=== PATIENT | male | born 1960 | race Caucasian/White ===

== ENCOUNTER 2016-09-02 20:57 | Inpatient (IN) | payer BC, OTHER ==
[2016-09-02] MEDS ORDERED: LORazepam INJ* 2 MG/ML 1 ML VIAL IV PUSH ONE ×2 (21:53→22:37)
[2016-09-02] MEDS ORDERED: HYDROcodone/ACETAMIN 5-325 MG* 1 TAB PO ONE (21:53)
--- NOTE | 2016-09-02 22:10 | RAD ---
INDICATION: Anisocoria in a patient with a history of drug and alcohol abuse. COMPARISON: None. TECHNIQUE: Contiguous axial sections of the brain were obtained from the skull base to the vertex without contrast. FINDINGS: The ventricles, cisterns and sulci are within normal limits. The he-white matter differentiation is adequately maintained and there is no sulcal effacement. No significant focal abnormality or mass effect is present. There is no evidence for intracranial hemorrhage. No significant focal osseous abnormality is present. There is hyperattenuating material filling the left frontal sinus. Remaining paranasal sinuses and mastoid air cells are clear. The hyperattenuating material filling the left frontal sinus does not appear to cause any cortical destruction or expansile change. IMPRESSION: 1. Hyperattenuating material filling the left frontal sinus does not appear to cause any bony destruction or expansile change. There is no radiology is favored such as fibrous dysplasia or the sequela of a remote infectious process. 2. No acute intracranial abnormality.
[2016-09-02] MEDS ORDERED: Thiamine IV* 100 MG, Folic Acid IV* 1 MG, Multiple Vitamin IV ADULT* 10 ML in NS 0.9% 1... IV ONE (22:27)
[2016-09-03 00:30] LABS: Hematocrit 44 % (42-52); Hemoglobin 14.6 g/dl (14.0-18.0); Mean Corpuscular HGB Conc 33 g/dl (31-36); Mean Corpuscular Hemoglobin 30 pg (27-31); Mean Corpuscular Volume 91 fL (80-94); Mean Platelet Volume 8 um3 (7.4-10.4); Red Blood Count 4.91 10^6/ul (4.0-5.4); Red Cell Distribution Width 15 % (10.5-15)
[2016-09-03 00:37] LABS: ALT 82 U/L (7-52); AST 93 U/L (13-39); Albumin 4.1 g/dL (3.2-5.2); Alkaline Phosphatase 128 U/L (34-104); Anion Gap 11 mmol/L (2-11); BUN/Creatinine Ratio 8.6 (8-20); Blood Urea Nitrogen 7 mg/dL (6-24); CO2 Carbon Dioxide 24 mmol/L (22-32); Chloride 102 mmol/L (101-111); EGFR African American 128.2 (>60); EGFR Non-African American 99.7 (>60); Globulin 3.3 g/dL (2-4); Glucose 176 mg/dL (70-100); Potassium 3.4 mmol/L (3.5-5.0); Sodium 137 mmol/L (133-145); Total Protein 7.4 g/dL (6.4-8.9)
[2016-09-03 00:50] LABS: Acetaminophen < 15 mcg/mL; Alcohol 69 mg/dL (<10); Salicylate < 2.50 mg/dL (<30)
[2016-09-03 00:59] LABS: TSH (Thyroid Stimulating Horm) 1.68 mcIU/mL (0.34-5.60)
[2016-09-03] MEDS ORDERED: Ondansetron INJ* 2 MG/ML VIAL IV PRN (01:21)
[2016-09-03] MEDS ORDERED: Melatonin (NF) 3 MG TAB PO PRN (01:21)
[2016-09-03] MEDS ORDERED: Albuterol 2.5 MG/3 ML NEB.SOL* (0.083%) INH PRN (01:21)
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
[2016-09-03 01:47] LABS: Urine Bilirubin Negative (Negative); Urine Glucose 1+(50 mg/dL) (Negative); Urine Nitrite Negative (Negative)
[2016-09-03 02:09] LABS: Benzodiazepine Urine Screen Presumptive Positive (None Detect)
[2016-09-03] MEDS: Ketorolac INJ* 15 MG/ML 1 ML VIAL IV PUSH PRN ×3 (02:43→17:59)
[2016-09-03] MEDS: Potassium Chlor TAB* 20 MEQ TAB.ER PO SCH ×2 (04:38→09:35)
[2016-09-03] MEDS: LORazepam INJ* 2 MG/ML 1 ML VIAL IV SCH ×4 (04:39→21:05)
[2016-09-03] MEDS: LORazepam TAB(*) 1 MG PO SCH ×3 (04:40→17:58)
[2016-09-03] MEDS: NS 0.9% 1000 ML* 1,000 ML IV SCH ×2 (04:47→13:32)
[2016-09-03] MEDS: Omeprazole CAP* 20 MG PO SCH (07:12)
[2016-09-03] MEDS: Thiamine TAB* 100 MG TAB PO SCH (09:34)
[2016-09-03] MEDS: Multivitamins/Minerals TAB PO SCH (09:34)
[2016-09-03] MEDS: Folic Acid TAB* 1 MG PO SCH (09:35)
[2016-09-03] MEDS: Docusate CAP* 100 MG PO SCH ×2 (09:35→21:06)
--- NOTE | 2016-09-03 10:45 | PN ---
Subjective Date of Service: 09/03/16 Interval History: Patient seen and examined at bedside. Pt states that he is very anxious and doesn't feel well this morning. Denies fever, chills, shortness of breath, chest discomfort, V/D. Pt also reports mild tremors and nausea. Tele: Sinus Rhythm, rate 60-80's, occasional tachycardia with rate 90-100's. Family History: Unchanged from Admission Social History: Unchanged from Admission Past Medical History: Unchanged from Admission Objective Active Medications: Acetaminophen (Tylenol Tab*) 650 mg PO Q6H PRN Reason: FEVER/PAIN Albuterol (Ventolin 2.5 Mg/3 Ml Neb.Reta*) 2.5 mg INH Q2H PRN Reason: SOB/ WHEEZING Docusate Sodium (Colace Cap*) 200 mg PO BID CORINE Folic Acid (Folvite Tab*) 1 mg PO DAILY [facility] Sodium Chloride (Ns 0.9% 1000 Ml*) 1,000 mls @ 125 mls/hr IV PER RATE CORINE Ketorolac Tromethamine (Toradol Inj*) 15 mg IV PUSH Q6H PRN Reason: PAIN Lorazepam (Ativan Inj*) 0 mg IV .PER WAM SCORE CORINE Reason: Protocol Lorazepam (Ativan Tab(*)) 2 mg PO Q8H [facility] Stop: 09/05/16 21:59 Melatonin (Melatonin (Nf)) 3 mg PO BEDTIME PRN; Protocol Reason: Sleep Multivitamins/Minerals (Theragran/Minerals Tab*) 1 tab PO DAILY [facility] Omeprazole (Prilosec Cap*) 20 mg PO DAILY@0600 [facility] Ondansetron HCl (Zofran Inj*) 4 mg IV Q6H PRN Reason: NAUSEA Thiamine HCl (Vitamin B-1 Tab*) 100 mg PO DAILY [facility] Vital Signs 09/03/16 09/03/16 09/03/16 01:30 02:00 02:04 Temperature 98.6 F Pulse Rate 106 Respiratory 18 Rate Blood Pressure 170/103 181/117 189/123 (mmHg) O2 Sat by Pulse 97 Oximetry 09/03/16 09/03/16 09/03/16 02:30 02:49 02:55 Temperature 98.4 F Pulse Rate Respiratory Rate Blood Pressure 163/102 157/102 (mmHg) O2 Sat by Pulse Oximetry 09/03/16 09/03/16 09/03/16 03:00 03:22 04:39 Temperature Pulse Rate 93 Respiratory 18 18 Rate Blood Pressure 154/120 (mmHg) O2 Sat by Pulse 92 Oximetry 09/03/16 09/03/16 09/03/16 05:00 05:06 06:01 Temperature 97.9 F 98.1 F Pulse Rate 103 103 Respiratory 16 20 16 Rate Blood Pressure 152/94 158/101 (mmHg) O2 Sat by Pulse 96 94 Oximetry 09/03/16 09/03/16 09/03/16 07:13 08:04 08:13 Temperature 98.1 F Pulse Rate 93 Respiratory 16 20 18 Rate Blood Pressure 172/109 (mmHg) O2 Sat by Pulse 96 Oximetry 09/03/16 09/03/16 09:23 09:34 Temperature Pulse Rate 82 Respiratory 18 Rate Blood Pressure 169/97 (mmHg) O2 Sat by Pulse 98 Oximetry Oxygen Devices in Use Now: None Appearance: NAD, laying in bed Eyes: No Scleral Icterus Ears/Nose/Mouth/Throat: Mucous Membranes Moist Respiratory: Symmetrical Chest Expansion and Respiratory Effort, Clear to Auscultation Cardiovascular: NL Sounds; No Murmurs; No JVD, RRR Abdominal: NL Sounds; No Tenderness; No Distention Extremities: No Edema Skin: No Rash or Ulcers Neurological: Alert and Oriented x 3, NL Muscle Strength and Tone Lines/Tubes/Other Access: Clean, Dry and Intact Peripheral IV - site benign Nutrition: Taking PO's Result Diagrams: 09/03/16 00:16 09/03/16 00:16 Assess/Plan/Problems-Billing Assessment: Mr. Kilgore is a 55 yo male with PMH significant for alcohol abuse and polysubstance abuse who presented to the emergency room with suicidality and was found to be in alcohol withdrawal. - Patient Problems (1) Alcohol withdrawal Code(s): F10.239 - ALCOHOL DEPENDENCE WITH WITHDRAWAL, UNSPECIFIED SNOMED Code (s): 372715848 Comment: - Hx seizures with withdrawal in the past - WAM score 4-8 - Continue WAM protocol and Ativan taper - Social work consult pending (2) Electrolyte abnormality Code(s): E87.8 - OTH DISORDERS OF ELECTROLYTE AND FLUID BALANCE, NEC SNOMED Code(s): 256462843 Comment: - Hypokalemia - Received replacement, will recheck labs in the morning - Hyperglycemia - HgA1C pending (3) Transaminitis Code(s): R74.0 - NONSPEC ELEV OF LEVELS OF TRANSAMNS & LACTIC ACID DEHYDRGNSE SNOMED Code(s): 485539466 Comment: - Suspect likely secondary to alcohol - Will check for Hep B/C, labs pending (4) Substance induced mood disorder Code(s): F19.94 - OTH PSYCHOACTIVE SUBSTANCE USE, UNSP W MOOD DISORDER SNOMED Code(s): 948133986 Comment: - Psychiatry consult pending (5) HTN (hypertension) Code(s): I10 - ESSENTIAL (PRIMARY) HYPERTENSION SNOMED Code(s): 42135425 Comment: - Hypertensive - Will continue to monitor BP and consider starting antihypertensives if SBP continues to be elevated (6) DVT prophylaxis Code(s): WJY3304 - SNOMED Code(s): 062317565 Comment: - SQ heparin (7) Full code status Code(s): Z78.9 - OTHER SPECIFIED HEALTH STATUS SNOMED Code(s): 788828349 Status and Disposition: OBV. Psych consult pending.
[2016-09-03] MEDS: Heparin VIAL(*) 5000 UNITS/ML VIAL (FIVE THOUSAND) SUBCUT SCH ×2 (13:33→21:05)
[2016-09-03] MEDS: Acetaminophen TAB* 325 MG PO PRN (16:58)
[2016-09-03] MEDS ORDERED: Ibuprofen TAB* 600 MG PO ONE (20:15)
--- NOTE | 2016-09-03 21:15 | ED ---
Chalo Cuenca Billy, scribed for Ventura Morataya MD on 09/02/16 at 2150 . Psychiatric Complaint - HPI Summary HPI Summary: Patient is a 55 year-old male coming to [facility] for [facility]. He states that he normally abuses fentanyl, ativan, cocaine, heroine, and EtOH, but he has not been able to use any of these today. He is tremulous and diaphoretic in the ED, but he denies chest pain or SOB. Positive SI. He also reports that he fractured his left arm 6 weeks ago. - History Of Current Complaint Chief Complaint: EDMentalHealth Time Seen by Provider: 09/02/16 21:23 Hx Obtained From: Patient Onset/Duration: Gradual Onset, Lasting Hours, Still Present Timing: Constant Severity Initially: Moderate Severity Currently: Moderate Character: Depressed Aggravating Factor(s): Alcohol Use, Drug Use Alleviating Factor(s): Nothing Related History: Positive For: Prior Psychiatric Issues Has Suicidal: Reports: Thoughts - Allergies/Home Medications Allergies/Adverse Reactions: Allergies Allergy/AdvReac Type Severity Reaction Status Date / Time No Known Allergies Allergy Verified 09/02/16 22:05 Home Medications: Home Medications NK [No Home Medications Reported] 09/02/16 [History Confirmed 09/02/16] PMH/Surg Hx/FS Hx/Imm Hx Cardiovascular History: Reports: Hx Hypertension Psychiatric History: Reports: Hx Depression, Hx Substance Abuse Denies: Hx Eating Disorder, Hx of Violent Episodes Against Others - Surgical History Surgery Procedure, Year, and Place: neck muscle surgeries, right shoulder 1995 - Immunization History Date of Tetanus Vaccine: unknown Infectious Disease History: Unable to Obtain/Confirm Infectious Disease History: Denies: Traveled Outside the [place] in Last 30 Days - Family History Known Family History: Positive: Unknown - Patient is adopted. - Social History Alcohol Use: Daily Alcohol Amount: pt intoxicated, states he's an alcoholic Substance Use Type: Reports: Heroin Smoking Status (MU): Heavy Every Day Tobacco Smoker Type: Cigarettes, Smokeless Tobacco Review of Systems Positive: Skin Diaphoresis, Other - tremulous Negative: Erythema Negative: Sore Throat Negative: Chest Pain Negative: Shortness Of Breath, Cough Negative: Vomiting, Nausea Positive: Arthralgia. Negative: Myalgia, Edema Negative: Rash All Other Systems Reviewed And Are Negative: Yes Physical Exam - Summary Physical Exam Summary: Constitutional: Well-developed, Well-nourished, Alert. (-) Distressed Skin: Warm, Diaphoretic. There is adhesive on his left arm likely from a cast. HENT: Normocephalic; Atraumatic. Dry oral mucosa. Eyes: Conjunctiva normal Neck: Musculoskeletal ROM normal neck. (-) JVD, (-) Stridor, (-) Tracheal deviation Cardio: Rhythm regular, rate tachycardia, Heart sounds normal; Intact distal pulses; The pedal pulses are 2+ and symmetric. Radial pulses are 2+ and symmetric. (-) Murmur Pulmonary/Chest wall: Effort normal. (-) Respiratory distress, (-) Wheezes, (-) Rales Abd: Soft, (-) Tenderness, (-) Distension, (-) Guarding, (-) Rebound Musculoskeletal: (-) Edema Lymph: (-) Cervical adenopathy Neuro: Alert, Oriented x3. Tremulous. Psych: Mood and affect Normal Triage Information Reviewed: Yes Vital Signs On Initial Exam: Initial Vitals Temp Pulse Resp BP Pulse Ox 98.2 F 117 14 197/128 97 09/02/16 20:58 09/02/16 20:58 09/02/16 20:58 09/02/16 20:58 09/02/16 20:58 Vital Signs Reviewed: Yes Diagnostics - Vital Signs Vital Signs Temp Pulse Resp BP Pulse Ox 09/02/16 21:10 99.1 F 115 16 197/128 99 09/02/16 20:58 98.2 F 117 14 197/128 97 - Laboratory Lab Results: Lab Results 09/02/16 09/02/16 09/03/16 Range/Units 01:55 01:55 00:16 WBC 7.0 (3.5-10.8) 10^3/ul RBC 4.91 (4.0-5.4) 10^6/ul Hgb 14.6 (14.0-18.0) g/dl Hct 44 (42-52) % MCV 91 (80-94) fL MCH 30 (27-31) pg MCHC 33 (31-36) g/dl RDW 15 (10.5-15) % Plt Count 191 (150-450) 10^3/ul MPV 8 (7.4-10.4) um3 Neut % (Auto) 64.6 (38-83) % Lymph % (Auto) 26.5 (25-47) % [place] % (Auto) 4.2 (1-9) % Eos % (Auto) 3.9 (0-6) % Baso % (Auto) 0.8 (0-2) % Absolute Neuts (auto) 4.5 (1.5-7.7) 10^3/ul Absolute Lymphs (auto) 1.9 (1.0-4.8) 10^3/ul Absolute Monos (auto) 0.3 (0-0.8) 10^3/ul Absolute Eos (auto) 0.3 (0-0.6) 10^3/ul Absolute Basos (auto) 0.1 (0-0.2) 10^3/ul Absolute Nucleated RBC 0 10^3/ul Nucleated RBC % 0 Sodium (133-145) mmol/L Potassium (3.5-5.0) mmol/L Chloride (101-111) mmol/L Carbon Dioxide (22-32) mmol/L Anion Gap (2-11) mmol/L BUN (6-24) mg/dL Creatinine (0.67-1.17) mg/dL Est GFR ( Amer) (>60) Est GFR (Non-Af Amer) (>60) BUN/Creatinine Ratio (8-20) Glucose (70-100) mg/dL Hemoglobin A1c (Less than 6.0) % Calcium (8.6-10.3) mg/dL Total Bilirubin (0.2-1.0) mg/dL AST (13-39) U/L ALT (7-52) U/L Alkaline Phosphatase (34-104) U/L Total Protein (6.4-8.9) g/dL Albumin (3.2-5.2) g/dL Globulin (2-4) g/dL Albumin/Globulin Ratio (1-3) TSH (0.34-5.60) mcIU/mL Urine Color Yellow Urine Appearance Clear Urine pH 6.0 (5-9) Ur Specific [place] 1.016 (1.010-1.030) Urine Protein Negative (Negative) Urine Ketones Negative (Negative) Urine Blood Negative (Negative) Urine Nitrate Negative (Negative) Urine Bilirubin Negative (Negative) Urine Urobilinogen Negative (Negative) Ur Leukocyte Esterase Negative (Negative) Urine Glucose 1+(50 mg/dl) H (Negative) Salicylates (<30) mg/dL Urine Opiates Screen Presumptive positive H (None Detect) Acetaminophen mcg/mL Ur Barbiturates Screen None detected (None Detect) Ur Phencyclidine Scrn None detected (None Detect) Ur Amphetamines Screen None detected (None Detect) U Benzodiazepines Scrn Presumptive positive H (None Detect) Urine Cocaine Screen None detected (None Detect) U Cannabinoids Screen None detected (None Detect) Serum Alcohol (<10) mg/dL Hep B Core IgM Ab (Nonreactive) Hepatitis C Antibody (Nonreactive) 09/03/16 09/03/16 09/03/16 Range/Units 00:16 00:16 01:55 WBC (3.5-10.8) 10^3/ul RBC (4.0-5.4) 10^6/ul Hgb (14.0-18.0) g/dl Hct (42-52) % MCV (80-94) fL MCH (27-31) pg MCHC (31-36) g/dl RDW (10.5-15) % Plt Count (150-450) 10^3/ul MPV (7.4-10.4) um3 Neut % (Auto) (38-83) % Lymph % (Auto) (25-47) % [place] % (Auto) (1-9) % Eos % (Auto) (0-6) % Baso % (Auto) (0-2) % Absolute Neuts (auto) (1.5-7.7) 10^3/ul Absolute Lymphs (auto) (1.0-4.8) 10^3/ul Absolute Monos (auto) (0-0.8) 10^3/ul Absolute Eos (auto) (0-0.6) 10^3/ul Absolute Basos (auto) (0-0.2) 10^3/ul Absolute Nucleated RBC 10^3/ul Nucleated RBC % Sodium 137 (133-145) mmol/L Potassium 3.4 L (3.5-5.0) mmol/L Chloride 102 (101-111) mmol/L Carbon Dioxide 24 (22-32) mmol/L Anion Gap 11 (2-11) mmol/L BUN 7 (6-24) mg/dL Creatinine 0.81 (0.67-1.17) mg/dL Est GFR ( Amer) 128.2 (>60) Est GFR (Non-Af Amer) 99.7 (>60) BUN/Creatinine Ratio 8.6 (8-20) Glucose 176 H (70-100) mg/dL Hemoglobin A1c 5.8 (Less than 6.0) % Calcium 9.0 (8.6-10.3) mg/dL Total Bilirubin 0.50 (0.2-1.0) mg/dL AST 93 H (13-39) U/L ALT 82 H (7-52) U/L Alkaline Phosphatase 128 H (34-104) U/L Total Protein 7.4 (6.4-8.9) g/dL Albumin 4.1 (3.2-5.2) g/dL Globulin 3.3 (2-4) g/dL Albumin/Globulin Ratio 1.2 (1-3) TSH 1.68 (0.34-5.60) mcIU/mL Urine Color Urine Appearance Urine pH (5-9) Ur Specific [place] (1.010-1.030) Urine Protein (Negative) Urine Ketones (Negative) Urine Blood (Negative) Urine Nitrate (Negative) Urine Bilirubin (Negative) Urine Urobilinogen (Negative) Ur Leukocyte Esterase (Negative) Urine Glucose (Negative) Salicylates < 2.50 (<30) mg/dL Urine Opiates Screen (None Detect) Acetaminophen < 15 mcg/mL Ur Barbiturates Screen (None Detect) Ur Phencyclidine Scrn (None Detect) Ur Amphetamines Screen (None Detect) U Benzodiazepines Scrn (None Detect) Urine Cocaine Screen (None Detect) U Cannabinoids Screen (None Detect) Serum Alcohol 69 H (<10) mg/dL Hep B Core IgM Ab Nonreactive (Nonreactive) Hepatitis C Antibody Nonreactive (Nonreactive) Result Diagrams: 09/03/16 00:16 09/03/16 00:16 Lab Statement: Any lab studies that have been ordered have been reviewed, and results considered in the medical decision making process. - CT Brain CT Interpretation Completed By: Radiologist - 1. Hyperattenuating material filling the left frontal sinus does not appear to cause any bony destruction or expansile change. There is no radiology is favored such as fibrous dysplasia or the sequela of a remote infectious process. 2. No acute intracranial abnormality. - EKG 2214 EKG Interpretation: sinus tachycardia 101 bpm, no STEMI Course/Dx - Course Assessment/Plan: 55 y/o male to the ED for evaluation of SI and withdrawal symptoms. CT of the brain reviewed as read by the radiologist. EKG shows sinus tachycadria without ST elevations. In the ED, patient was given [place], Ativan, and a banana bag. Patient care discussed with Dr. Campbell, who accepted the patient for admission. - Differential Dx/Clinical Impression Provider Diagnosis: Alcohol withdrawal, Substance induced mood disorder - Physician Notifications Discussed Care Of Patient With: Dr. Campbell (hospitalist) @ 0100: accepts admission. Discharge - Discharge Plan Condition: Stable Disposition: ADMITTED TO [facility] documentation as recorded by the Chalo razo Billy accurately reflects the service I personally performed and the decisions made by me, Ventura Morataya MD.
[2016-09-03] MEDS ORDERED: CMCS - Melatonin (NF) 3 MG TAB PO PRN (23:10)
[2016-09-04] MEDS: NS 0.9% 1000 ML* 1,000 ML IV SCH ×2 (00:06→07:53)
[2016-09-04] MEDS: LORazepam INJ* 2 MG/ML 1 ML VIAL IV SCH ×8 (00:46→22:49)
[2016-09-04] MEDS: Ketorolac INJ* 15 MG/ML 1 ML VIAL IV PUSH PRN ×2 (00:46→08:29)
[2016-09-04 05:33] LABS: BUN/Creatinine Ratio 11.3 (8-20); Calcium 8.8 mg/dL (8.6-10.3); EGFR African American 149.2 (>60); EGFR Non-African American 116.1 (>60); Potassium 3.7 mmol/L (3.5-5.0)
[2016-09-04] MEDS: Heparin VIAL(*) 5000 UNITS/ML VIAL (FIVE THOUSAND) SUBCUT SCH ×3 (05:47→22:48)
[2016-09-04] MEDS: LORazepam TAB(*) 1 MG PO SCH ×2 (05:47→17:51)
[2016-09-04] MEDS: Omeprazole CAP* 20 MG PO SCH (05:48)
[2016-09-04] MEDS: Thiamine TAB* 100 MG TAB PO SCH (07:57)
[2016-09-04] MEDS: Multivitamins/Minerals TAB PO SCH (07:57)
[2016-09-04] MEDS: Docusate CAP* 100 MG PO SCH ×2 (07:57→22:34)
[2016-09-04] MEDS: Folic Acid TAB* 1 MG PO SCH (07:58)
--- NOTE | 2016-09-04 10:17 | PN ---
Subjective Date of Service: 09/04/16 Interval History: Patient seen and examined at bedside. Pt reports a left frontal headache, he feels like this is his typical headache when he hasn't had caffeine. Denies fever, chills, shortness of breath, chest discomfort, N/V/D. Pt states that he feels more anxious since talking to Psychiatry this morning. Pt encouraged to ambulate in the halls and get out of the room. Tele: Sinus rhythm, rate 60-90's. Family History: Unchanged from Admission Social History: Unchanged from Admission Past Medical History: Unchanged from Admission Objective Active Medications: Acetaminophen (Tylenol Tab*) 650 mg PO Q6H PRN Reason: FEVER/PAIN Albuterol (Ventolin 2.5 Mg/3 Ml Neb.Reta*) 2.5 mg INH Q2H PRN Reason: SOB/ WHEEZING Docusate Sodium (Colace Cap*) 200 mg PO BID CORINE Folic Acid (Folvite Tab*) 1 mg PO DAILY [facility] Heparin Sodium (Porcine) (Heparin Vial(*)) 5,000 units SUBCUT Q8HR [facility] Sodium Chloride (Ns 0.9% 1000 Ml*) 1,000 mls @ 125 mls/hr IV PER RATE [facility] Ketorolac Tromethamine (Toradol Inj*) 15 mg IV PUSH Q6H PRN Reason: PAIN Lorazepam (Ativan Inj*) 0 mg IV .PER WAM SCORE [facility] Reason: Protocol Lorazepam (Ativan Tab(*)) 2 mg PO Q12H CORINE TAPER Stop: 09/05/16 21:59 Melatonin (Melatonin (Nf)) 3 mg PO BEDTIME PRN; Protocol Reason: Sleep Multivitamins/Minerals (Theragran/Minerals Tab*) 1 tab PO DAILY [facility] Omeprazole (Prilosec Cap*) 20 mg PO DAILY@0600 [facility] Ondansetron HCl (Zofran Inj*) 4 mg IV Q6H PRN Reason: NAUSEA Thiamine HCl (Vitamin B-1 Tab*) 100 mg PO DAILY [facility] Vital Signs 09/03/16 09/03/16 09/03/16 19:58 20:00 20:04 Temperature 97.5 F Pulse Rate 84 Respiratory 16 16 20 Rate Blood Pressure 195/117 (mmHg) O2 Sat by Pulse 97 Oximetry 09/03/16 09/03/16 09/03/16 21:05 21:53 22:05 Temperature 97.5 F Pulse Rate 74 Respiratory 16 20 16 Rate Blood Pressure 182/111 (mmHg) O2 Sat by Pulse 99 Oximetry 09/03/16 09/04/16 09/04/16 22:54 00:31 00:46 Temperature 98.2 F Pulse Rate 79 Respiratory 16 20 16 Rate Blood Pressure 173/110 (mmHg) O2 Sat by Pulse 96 Oximetry 09/04/16 09/04/16 09/04/16 01:46 02:18 04:23 Temperature 97.6 F 97.7 F Pulse Rate 73 76 Respiratory 16 20 20 Rate Blood Pressure 166/99 186/109 (mmHg) O2 Sat by Pulse 94 97 Oximetry 09/04/16 09/04/16 09/04/16 04:38 05:47 05:48 Temperature 97.6 F Pulse Rate 62 Respiratory 16 16 20 Rate Blood Pressure 162/93 (mmHg) O2 Sat by Pulse 97 Oximetry 09/04/16 09/04/16 09/04/16 07:34 07:47 08:00 Temperature 97.3 F Pulse Rate 65 Respiratory 20 20 20 Rate Blood Pressure 169/107 (mmHg) O2 Sat by Pulse 97 Oximetry 09/04/16 08:53 Temperature 97.8 F Pulse Rate 68 Respiratory 16 Rate Blood Pressure 152/101 (mmHg) O2 Sat by Pulse 98 Oximetry Oxygen Devices in Use Now: None Appearance: NAD, sitting up on the side of the bed Eyes: No Scleral Icterus Ears/Nose/Mouth/Throat: Mucous Membranes Moist Respiratory: Symmetrical Chest Expansion and Respiratory Effort, Clear to Auscultation Cardiovascular: NL Sounds; No Murmurs; No JVD, RRR Abdominal: NL Sounds; No Tenderness; No Distention Extremities: No Edema Neurological: Alert and Oriented x 3, NL Muscle Strength and Tone Lines/Tubes/Other Access: Clean, Dry and Intact Peripheral IV - site benign Nutrition: Taking PO's Result Diagrams: 09/03/16 00:16 09/04/16 04:42 Additional Lab and Data: Assess/Plan/Problems-Billing Assessment: Mr. Kilgore is a 55 yo male with PMH significant for alcohol abuse and polysubstance abuse who presented to the emergency room with suicidality and was found to be in alcohol withdrawal. - Patient Problems (1) Alcohol withdrawal Code(s): F10.239 - ALCOHOL DEPENDENCE WITH WITHDRAWAL, UNSPECIFIED SNOMED Code (s): 278030511 Comment: - Hx seizures with withdrawal in the past - WAM score 3-7 - Continue WAM protocol and Ativan taper - Social work consult (2) Electrolyte abnormality Code(s): E87.8 - OTH DISORDERS OF ELECTROLYTE AND FLUID BALANCE, NEC SNOMED Code(s): 643481573 Comment: - Hypokalemia - resolved - Hyperglycemia - HgA1C 5.8 (3) Transaminitis Code(s): R74.0 - NONSPEC ELEV OF LEVELS OF TRANSAMNS & LACTIC ACID DEHYDRGNSE SNOMED Code(s): 364579399 Comment: - Hep B core IgM ab and Hep C antibody negative - Suspect likely secondary to alcohol (4) Substance induced mood disorder Code(s): F19.94 - OTH PSYCHOACTIVE SUBSTANCE USE, UNSP W MOOD DISORDER SNOMED Code(s): 247193057 Comment: - Psychiatry consult pending (5) HTN (hypertension) Code(s): I10 - ESSENTIAL (PRIMARY) HYPERTENSION SNOMED Code(s): 16541587 Comment: - Hypertensive - Will start Amlodipine today (6) DVT prophylaxis Code(s): JYD8469 - SNOMED Code(s): 258886091 Comment: - SQ heparin (7) Full code status Code(s): Z78.9 - OTHER SPECIFIED HEALTH STATUS SNOMED Code(s): 611189372 Status and Disposition: OBV to Inpatient. Psych consult pending.
[2016-09-04] MEDS ORDERED: amLODIPine TAB* 5 MG PO SCH (11:00)
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
[2016-09-04] MEDS: hydrALAZINE IV* 20 MG/ML VIAL IV SLOW PU PRN (17:52)
[2016-09-04] MEDS ORDERED: amLODIPine TAB* 5 MG PO ONE (19:31)
[2016-09-04] MEDS: Acetaminophen TAB* 325 MG PO PRN (19:39)
[2016-09-05] MEDS: hydrALAZINE IV* 20 MG/ML VIAL IV SLOW PU PRN (00:40)
[2016-09-05] MEDS: LORazepam INJ* 2 MG/ML 1 ML VIAL IV SCH ×4 (00:41→07:02)
[2016-09-05] MEDS: Ketorolac INJ* 15 MG/ML 1 ML VIAL IV PUSH PRN (01:10)
[2016-09-05] MEDS ORDERED: Metoprolol Tartrate IV* 1 MG/ML 5 ML VIAL IV ONE (03:00)
[2016-09-05] MEDS: LORazepam TAB(*) 1 MG PO SCH ×10 (05:47→23:42)
[2016-09-05] MEDS: Omeprazole CAP* 20 MG PO SCH (05:47)
[2016-09-05] MEDS: Heparin VIAL(*) 5000 UNITS/ML VIAL (FIVE THOUSAND) SUBCUT SCH ×3 (05:48→20:51)
[2016-09-05] MEDS ORDERED: Nicotine PATCH 14 MG/24 HR* PATCH TRANSDERM SCH (06:00)
--- NOTE | 2016-09-05 08:11 | PN ---
Subjective Date of Service: 09/05/16 Interval History: Patient seen and examined at bedside. Pt states that he continue to feel anxious and has not been sleeping well since he has been here. Denies fever, chills, shortness of breath, chest discomfort, V/D. Pt reports nausea, decreased appetite, and left wrist pain. Family History: Unchanged from Admission Social History: Unchanged from Admission Past Medical History: Unchanged from Admission Objective Active Medications: Acetaminophen (Tylenol Tab*) 650 mg PO Q6H PRN Reason: FEVER/PAIN Albuterol (Ventolin 2.5 Mg/3 Ml Neb.Reta*) 2.5 mg INH Q2H PRN Reason: SOB/ WHEEZING Amlodipine Besylate (Norvasc Tab*) 10 mg PO DAILY [facility] Docusate Sodium (Colace Cap*) 200 mg PO BID CORINE Folic Acid (Folvite Tab*) 1 mg PO DAILY [facility] Heparin Sodium (Porcine) (Heparin Vial(*)) 5,000 units SUBCUT Q8HR [facility] Hydralazine HCl (Apresoline Iv*) 5 mg IV SLOW PU Q6H PRN Reason: BLOOD PRESSURE Ketorolac Tromethamine (Toradol Inj*) 15 mg IV PUSH Q6H PRN Reason: PAIN Lorazepam (Ativan Tab(*)) 1 mg PO Q12H [facility] Reason: Taper Stop: 09/05/16 21:59 Lorazepam (Ativan Tab(*)) 0 mg PO .PER WAM SCORE [facility] Reason: Protocol Melatonin (Melatonin (Nf)) 3 mg PO BEDTIME PRN; Protocol Reason: Sleep Multivitamins/Minerals (Theragran/Minerals Tab*) 1 tab PO DAILY [facility] Nicotine (Nicotine Patch 14 Mg/24 Hr*) 1 patch TRANSDERM Q24H [facility] Omeprazole (Prilosec Cap*) 20 mg PO DAILY@0600 [facility] Ondansetron HCl (Zofran Inj*) 4 mg IV Q6H PRN Reason: NAUSEA Pharmacy Profile Note (Nicotine Patch Removal Note*) 1 note PATCH OFF 2100 [facility] Thiamine HCl (Vitamin B-1 Tab*) 100 mg PO DAILY [facility] Vital Signs 09/04/16 09/04/16 09/04/16 08:53 10:51 12:38 Temperature 97.8 F 97.3 F 97.4 F Pulse Rate 68 83 88 Respiratory 16 16 16 Rate Blood Pressure 152/101 158/106 181/119 (mmHg) O2 Sat by Pulse 98 98 96 Oximetry 09/04/16 09/04/16 09/04/16 12:42 12:44 13:30 Temperature Pulse Rate 87 87 Respiratory 18 16 18 Rate Blood Pressure 187/119 (mmHg) O2 Sat by Pulse 96 95 Oximetry 09/04/16 09/04/16 09/04/16 14:19 14:30 15:02 Temperature 98.0 F 97.8 F Pulse Rate 94 93 Respiratory 16 20 20 Rate Blood Pressure 185/126 185/129 (mmHg) O2 Sat by Pulse 95 99 Oximetry 09/04/16 09/04/16 09/04/16 15:09 15:29 16:29 Temperature Pulse Rate 93 Respiratory 20 20 18 Rate Blood Pressure 185/129 (mmHg) O2 Sat by Pulse 99 Oximetry 09/04/16 09/04/16 09/04/16 16:34 17:12 17:51 Temperature 98.1 F Pulse Rate 89 Respiratory 18 20 Rate Blood Pressure 208/140 187/125 (mmHg) O2 Sat by Pulse 98 Oximetry 09/04/16 09/04/16 09/04/16 17:53 18:53 19:25 Temperature Pulse Rate 94 Respiratory 20 18 16 Rate Blood Pressure 184/123 (mmHg) O2 Sat by Pulse 99 Oximetry 09/04/16 09/04/16 09/04/16 19:30 19:39 19:40 Temperature 98.3 F Pulse Rate 94 96 Respiratory 16 17 16 Rate Blood Pressure 184/123 182/116 (mmHg) O2 Sat by Pulse 99 Oximetry 09/04/16 09/04/16 09/04/16 20:57 21:00 22:42 Temperature Pulse Rate 88 88 Respiratory 16 16 16 Rate Blood Pressure 175/105 160/109 (mmHg) O2 Sat by Pulse 98 98 Oximetry 09/04/16 09/05/16 09/05/16 22:49 00:27 00:41 Temperature 97.5 F Pulse Rate 105 Respiratory 16 20 16 Rate Blood Pressure 178/118 (mmHg) O2 Sat by Pulse 94 Oximetry 09/05/16 09/05/16 09/05/16 02:48 03:12 04:49 Temperature 97.7 F 98.4 F Pulse Rate 98 88 Respiratory 20 16 20 Rate Blood Pressure 187/119 145/90 (mmHg) O2 Sat by Pulse 97 95 Oximetry 09/05/16 09/05/16 09/05/16 05:08 05:47 06:41 Temperature 98.2 F Pulse Rate 87 Respiratory 16 16 20 Rate Blood Pressure 144/100 (mmHg) O2 Sat by Pulse 98 Oximetry Oxygen Devices in Use Now: None Appearance: NAD, sitting up on the side of the bed Eyes: No Scleral Icterus Respiratory: Symmetrical Chest Expansion and Respiratory Effort, Clear to Auscultation Cardiovascular: NL Sounds; No Murmurs; No JVD, RRR Abdominal: NL Sounds; No Tenderness; No Distention Extremities: No Edema Neurological: Alert and Oriented x 3, NL Muscle Strength and Tone, - - Mild tremors noted in bilateral UE Lines/Tubes/Other Access: Clean, Dry and Intact Peripheral IV - site benign Nutrition: Taking PO's Result Diagrams: 09/03/16 00:16 09/04/16 04:42 Additional Lab and Data: Assess/Plan/Problems-Billing Assessment: Mr. Kilgore is a 55 yo male with PMH significant for alcohol abuse and polysubstance abuse who presented to the emergency room with suicidality and was found to be in alcohol withdrawal. - Patient Problems (1) Alcohol withdrawal Code(s): F10.239 - ALCOHOL DEPENDENCE WITH WITHDRAWAL, UNSPECIFIED SNOMED Code (s): 446429793 Comment: - Hx seizures with withdrawal in the past - Delirium Tremens - WAM score 6-12 - Continue WAM protocol and Ativan taper - Social work consult (2) Electrolyte abnormality Code(s): E87.8 - OTH DISORDERS OF ELECTROLYTE AND FLUID BALANCE, NEC SNOMED Code(s): 000105057 Comment: - Hypokalemia - resolved - Hyperglycemia - HgA1C 5.8 (3) Transaminitis Code(s): R74.0 - NONSPEC ELEV OF LEVELS OF TRANSAMNS & LACTIC ACID DEHYDRGNSE SNOMED Code(s): 988092881 Comment: - Hep B core IgM ab, Hep B core total Ab, and Hep C antibody negative - Suspect likely secondary to alcohol (4) Substance induced mood disorder Code(s): F19.94 - OTH PSYCHOACTIVE SUBSTANCE USE, UNSP W MOOD DISORDER SNOMED Code(s): 190350277 Comment: - Psychiatry consult, input appreciated (5) HTN (hypertension) Code(s): I10 - ESSENTIAL (PRIMARY) HYPERTENSION SNOMED Code(s): 16846368 Comment: - Hypertensive - Increase Amlodipine - Continue Hydralazine PRN (6) DVT prophylaxis Code(s): LFL0580 - SNOMED Code(s): 922165468 Comment: - SQ heparin (7) Full code status Code(s): Z78.9 - OTHER SPECIFIED HEALTH STATUS SNOMED Code(s): 028416875 Status and Disposition: Inpatient. Plan for discharge to [facility] when medically stable.
[2016-09-05] MEDS ORDERED: Thiamine TAB* 100 MG TAB PO SCH (09:00)
[2016-09-05] MEDS: Folic Acid TAB* 1 MG PO SCH (09:10)
[2016-09-05] MEDS: Thiamine TAB* 100 MG TAB PO SCH (09:10)
[2016-09-05] MEDS: amLODIPine TAB* 5 MG PO SCH (09:10)
[2016-09-05] MEDS: Docusate CAP* 100 MG PO SCH ×2 (09:10→20:50)
[2016-09-05] MEDS: Multivitamins/Minerals TAB PO SCH (09:11)
[2016-09-05] MEDS: Nicotine GUM* 2 MG PO PRN (14:23)
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
[2016-09-05] MEDS: Nicotine PATCH 14 MG/24 HR* PATCH TRANSDERM SCH (20:44)
[2016-09-05] MEDS ORDERED: Nicotine Patch Removal NOTE FOLLOW UP SCH (21:00)
[2016-09-05] MEDS ORDERED: Nicotine PATCH 21 MG/24 HR* PATCH TRANSDERM SCH (21:00)
[2016-09-06] MEDS: Nicotine GUM* 2 MG PO PRN ×2 (00:28→09:38)
[2016-09-06] MEDS: LORazepam TAB(*) 1 MG PO SCH ×6 (02:11→20:43)
[2016-09-06] MEDS ORDERED: Ziprasidone IM INJ* 20 MG/ML VIAL IM ONE (02:46)
[2016-09-06] MEDS: Nicotine Patch Removal NOTE PATCH OFF SCH ×2 (03:41→22:18)
[2016-09-06 05:45] LABS: Hematocrit 39 % (42-52); Mean Corpuscular HGB Conc 34 g/dl (31-36); Mean Corpuscular Hemoglobin 30 pg (27-31); Mean Corpuscular Volume 90 fL (80-94); Mean Platelet Volume 9 um3 (7.4-10.4); Red Cell Distribution Width 15 % (10.5-15); White Blood Count 5.7 10^3/ul (3.5-10.8)
[2016-09-06] MEDS: Heparin VIAL(*) 5000 UNITS/ML VIAL (FIVE THOUSAND) SUBCUT SCH ×3 (06:26→20:45)
[2016-09-06] MEDS: Omeprazole CAP* 20 MG PO SCH (06:28)
[2016-09-06] MEDS: Thiamine TAB* 100 MG TAB PO SCH (09:11)
[2016-09-06] MEDS: Folic Acid TAB* 1 MG PO SCH (09:11)
[2016-09-06] MEDS: Docusate CAP* 100 MG PO SCH ×2 (09:12→20:44)
[2016-09-06] MEDS: Multivitamins/Minerals TAB PO SCH (09:12)
[2016-09-06] MEDS: amLODIPine TAB* 5 MG PO SCH (09:12)
--- NOTE | 2016-09-06 17:24 | PN ---
Subjective Date of Service: 09/06/16 Interval History: Patient seen and examined at bedside. Pt states that he continues to be anxious about his current situation and that he may be facing time in long-term. Denies fever, chills, shortness of breath, chest discomfort, V/D. Pt reports mild tremors in his hands and nausea. Pt has been up and ambulating in the halls frequently. Family History: Unchanged from Admission Social History: Unchanged from Admission Past Medical History: Unchanged from Admission Objective Active Medications: Acetaminophen (Tylenol Tab*) 650 mg PO Q6H PRN Reason: FEVER/PAIN Albuterol (Ventolin 2.5 Mg/3 Ml Neb.Reta*) 2.5 mg INH Q2H PRN Reason: SOB/ WHEEZING Amlodipine Besylate (Norvasc Tab*) 10 mg PO DAILY [facility] Docusate Sodium (Colace Cap*) 200 mg PO BID [facility] Folic Acid (Folvite Tab*) 1 mg PO DAILY [facility] Heparin Sodium (Porcine) (Heparin Vial(*)) 5,000 units SUBCUT Q8HR [facility] Hydralazine HCl (Apresoline Iv*) 5 mg IV SLOW PU Q6H PRN Reason: BLOOD PRESSURE Ketorolac Tromethamine (Toradol Inj*) 15 mg IV PUSH Q6H PRN Reason: PAIN Lorazepam (Ativan Tab(*)) 0 mg PO .PER WAM SCORE [facility] Reason: Protocol Melatonin (Melatonin (Nf)) 3 mg PO BEDTIME PRN; Protocol Reason: Sleep Multivitamins/Minerals (Theragran/Minerals Tab*) 1 tab PO DAILY [facility] Nicotine (Nicotine Patch 14 Mg/24 Hr*) 1 patch TRANSDERM 2100 [facility] Nicotine Polacrilex (Nicotine Gum*) 2 mg PO Q2H PRN Reason: CRAVING Omeprazole (Prilosec Cap*) 20 mg PO DAILY@0600 [facility] Ondansetron HCl (Zofran Inj*) 4 mg IV Q6H PRN Reason: NAUSEA Pharmacy Profile Note (Nicotine Patch Removal Note*) 1 note PATCH OFF 2100 [facility] Thiamine HCl (Vitamin B-1 Tab*) 100 mg PO DAILY [facility] Trazodone HCl (Desyrel Tab*) 25 mg PO BEDTIME PRN Reason: SLEEP Vital Signs 09/05/16 09/05/16 09/05/16 17:31 19:00 19:20 Temperature 98.1 F Pulse Rate 100 Respiratory 20 20 20 Rate Blood Pressure 143/87 (mmHg) O2 Sat by Pulse 98 Oximetry 09/05/16 09/05/16 09/05/16 19:26 19:31 20:00 Temperature Pulse Rate Respiratory 20 20 20 Rate Blood Pressure (mmHg) O2 Sat by Pulse Oximetry 09/05/16 09/05/16 09/05/16 21:04 21:26 21:40 Temperature 97.6 F Pulse Rate 99 Respiratory 20 20 17 Rate Blood Pressure 147/92 (mmHg) O2 Sat by Pulse 98 Oximetry 09/05/16 09/05/16 09/05/16 22:59 23:02 23:40 Temperature 97.5 F Pulse Rate 89 Respiratory 20 20 20 Rate Blood Pressure 147/98 (mmHg) O2 Sat by Pulse 100 Oximetry 09/05/16 09/06/16 09/06/16 23:42 01:42 02:00 Temperature 98.1 F Pulse Rate 102 Respiratory 20 20 20 Rate Blood Pressure 154/98 (mmHg) O2 Sat by Pulse 96 Oximetry 09/06/16 09/06/16 09/06/16 02:11 04:11 04:28 Temperature 98.3 F Pulse Rate 97 Respiratory 24 20 20 Rate Blood Pressure 154/97 (mmHg) O2 Sat by Pulse 95 Oximetry 09/06/16 09/06/16 09/06/16 06:15 07:35 08:00 Temperature 97.3 F 97.7 F Pulse Rate 82 74 Respiratory 20 18 15 Rate Blood Pressure 137/69 147/95 (mmHg) O2 Sat by Pulse 99 96 Oximetry 09/06/16 09/06/16 09/06/16 09:48 09:53 11:53 Temperature 97.4 F Pulse Rate 92 Respiratory 20 20 20 Rate Blood Pressure 153/107 (mmHg) O2 Sat by Pulse 98 Oximetry 09/06/16 09/06/16 09/06/16 12:29 12:35 14:35 Temperature Pulse Rate 90 Respiratory 22 20 20 Rate Blood Pressure 142/86 (mmHg) O2 Sat by Pulse Oximetry 09/06/16 09/06/16 09/06/16 14:39 15:00 15:19 Temperature 97.7 F 98.1 F Pulse Rate 87 88 Respiratory 20 20 18 Rate Blood Pressure 135/87 141/95 (mmHg) O2 Sat by Pulse 98 97 Oximetry Oxygen Devices in Use Now: None Appearance: NAD, sitting up on side of bed Ears/Nose/Mouth/Throat: Mucous Membranes Moist Respiratory: Symmetrical Chest Expansion and Respiratory Effort, Clear to Auscultation Cardiovascular: NL Sounds; No Murmurs; No JVD, RRR Abdominal: NL Sounds; No Tenderness; No Distention Extremities: No Edema Skin: No Rash or Ulcers Neurological: Alert and Oriented x 3, NL Muscle Strength and Tone Lines/Tubes/Other Access: Clean, Dry and Intact Peripheral IV - site benign Nutrition: Taking PO's Result Diagrams: 09/06/16 05:37 09/04/16 04:42 Additional Lab and Data: Assess/Plan/Problems-Billing Assessment: Mr. Kilgore is a 55 yo male with PMH significant for alcohol abuse and polysubstance abuse who presented to the emergency room with suicidality and was found to be in alcohol withdrawal. - Patient Problems (1) Alcohol withdrawal Code(s): F10.239 - ALCOHOL DEPENDENCE WITH WITHDRAWAL, UNSPECIFIED SNOMED Code (s): 163893967 Comment: - Hx seizures with withdrawal in the past - Delirium Tremens - WAM score 1-7 - Continue WAM protocol and Ativan taper - Social work consult (2) Electrolyte abnormality Code(s): E87.8 - OTH DISORDERS OF ELECTROLYTE AND FLUID BALANCE, NEC SNOMED Code(s): 468698247 Comment: - Hypokalemia - resolved - Hyperglycemia - HgA1C 5.8 (3) Transaminitis Code(s): R74.0 - NONSPEC ELEV OF LEVELS OF TRANSAMNS & LACTIC ACID DEHYDRGNSE SNOMED Code(s): 406779355 Comment: - Hep B core IgM ab, Hep B core total Ab, and Hep C antibody negative - Suspect likely secondary to alcohol (4) Substance induced mood disorder Code(s): F19.94 - OTH PSYCHOACTIVE SUBSTANCE USE, UNSP W MOOD DISORDER SNOMED Code(s): 266247265 Comment: - Psychiatry consult, input appreciated (5) HTN (hypertension) Code(s): I10 - ESSENTIAL (PRIMARY) HYPERTENSION SNOMED Code(s): 63490242 Comment: - BP improved - Continue Amlodipine - Continue Hydralazine PRN (6) DVT prophylaxis Code(s): GRI3052 - SNOMED Code(s): 782451736 Comment: - SQ heparin (7) Full code status Code(s): Z78.9 - OTHER SPECIFIED HEALTH STATUS SNOMED Code(s): 837725904 Status and Disposition: Inpatient. Medically stable for discharge to B[facility] today.
[2016-09-06] MEDS: Nicotine PATCH 14 MG/24 HR* PATCH TRANSDERM SCH (20:47)
[2016-09-06] MEDS: traZODone TAB* 50 MG TAB PO PRN (23:03)
[2016-09-07] MEDS: Omeprazole CAP* 20 MG PO SCH (06:21)
[2016-09-07] MEDS: Heparin VIAL(*) 5000 UNITS/ML VIAL (FIVE THOUSAND) SUBCUT SCH ×3 (06:22→21:05)
--- NOTE | 2016-09-07 07:08 | DS ---
DISCHARGE SUMMARY: DATE OF ADMISSION: 09/03/16 DATE OF DISCHARGE: 09/06/16 ATTENDING PHYSICIAN: Sadiq Jonas MD* (dictated by Melly Begum NP) PRIMARY CARE PROVIDER: Dr. Reji Díaz. PRIMARY DIAGNOSES: 1. Alcohol withdrawal with delirium tremens. 2. Polysubstance abuse. 3. Hypertension. 4. Mild transaminitis. CONSULTATION WHILE IN THE HOSPITAL: Manolo Ngo MD with Psychiatry. STUDIES WHILE IN THE HOSPITAL: Brain CT on 09/02/16. Radiologist's impression : Hyperattenuating material filling the left frontal sinus does not appear to cause any bony destruction or expansile change. There is no radiology favored such as fibrosis, dysplasia or a sequela of a remote infectious process. No acute intracranial abnormality. CURRENT HOSPITAL MEDICATIONS: 1. Acetaminophen 650 mg oral every 6 hours as needed for fever or pain. 2. Albuterol 2.5 mg inhalation every 2 hours as needed for shortness of breath or wheeze. 3. Amlodipine 10 mg oral daily. 4. Colace 200 mg oral twice daily. 5. Folic acid 1 mg oral daily. 6. Heparin 5000 unit subcutaneous every 8 hours. 7. Hydralazine 5 mg IV push every 6 hours as needed for systolic blood pressure greater than 180 or diastolic blood pressure greater than 110. 8. Toradol 15 mg IV push every 6 hours as needed for pain. 9. Ativan per [facility] protocol. 10. Melatonin 3 mg oral daily at bedtime as needed for sleep. 11. Multivitamin 1 tablet oral daily. 12. Nicotine patch 14 mg transdermal daily. 13. Nicotine gum 2 mg oral every 2 hours as needed for nicotine craving. 14. Omeprazole 20 mg oral daily. 15. Zofran 4 mg IV every 6 hours as needed for nausea. 16. Thiamine 100 mg oral daily. 17. Trazodone 25 mg oral daily at bedtime. HISTORY OF PRESENT ILLNESS/HOSPITAL COURSE: Mr. Leonard is a 55-year-old male with past medical history significant for polysubstance abuse and alcohol withdrawal seizures who was sober approximately 14 months ago until he fractured his left forearm at work approximately 5 weeks ago and was given prescription for hydrocodone. Within a week, the patient had returned to using heroin, cocaine, and binge drinking. The patient was currently on probation for 2 DUIs and had recently failed a drug test. The patient had also missed a drug appointment on 08/27/16 and became distraught over situation. The patient reportedly was sent by train to [facility] for a drug court appearance when he made it as far as [place], [place]. The patient reportedly had lay on train tracks, threatening to kill himself and was hospitalized there prior to signing himself out against medical advice. The patient continued back to [place], [place] where he saw his ex- and after talking with her, she convinced him to come to the emergency room for further evaluation. While in the ER, the patient had a CT of his brain with no significant acute findings. The patient had also become agitated and tremulous prompting request for admission for alcohol withdrawal with delirium tremens. The patient was also noted to have mild transaminitis, hyperglycemia, and hypokalemia. The patient was also noted to be hypertensive. The hospitalist was asked to evaluate the patient for admission. While in the hospital, the patient continued to be hypertensive and tachycardic , and the patient was initiated on amlodipine and he continued to be hypertensive. He was initiated on as needed hydralazine and his amlodipine was increased to 10 mg daily. The patient was placed on an Ativan taper to prevent alcohol withdrawal seizures. The patient was also monitored with WAM assessment. The patient was ranging from 1 to 13 WAM score. The patient is now scoring 1 to 7, although he denies suicidality at this time. The patient is clearly unable to make good decisions for himself. The patient was seen in consultation by Dr. Ngo with Psychiatry who felt that it would be in the patient's best interest to be admitted to Behavioral Services Unit and the patient would be taken when he was medically cleared. The patient had a hemoglobin A1c checked and was 5.8. The patient's hypokalemia resolved during his hospitalization. Again, the patient's mild transaminitis was suspected to be secondary to his alcoholism. The patient had negative hep B core total antibody, hep B core IgM antibody, and hepatitis C antibodies during the stay. The patient has now been medically cleared for discharge to Behavioral Services Unit. Mr. Leonard is stable for discharge to Behavioral Services Unit today. Vital signs are as follows. Temperature 98.4, heart rate 93, respiratory rate 19, O2 sat 97% on room air, and blood pressure 140/101. DISCHARGE PLAN: Mr. Leonard would be discharged to Behavioral Services Unit. Activity is as tolerated. He should be on a low-sodium diet. As far as the patient's hypertension, I recommend continuing him on amlodipine. The patient should follow up with his primary care provider, Dr. Reji Díaz at discharge from Behavioral Services. I will defer management of the patient's substance-induced mood disorder and suicidality to Psychiatry. This is a summarized report of a complex medical history and hospital stay. For further details, please see the entire medical record. TIME SPENT: Time for this discharge was 50 minutes and 25 minutes was spent face- to-face with the patient, discussing discharge plans and instructions. CONDITION ON DISCHARGE: Stable. Reviewed by NATALIA LEDESMA 09/10/161927 CC: Dr. Reji Díaz* [id number]/CPS #: [id number] SHARIF
[2016-09-07] MEDS: Multivitamins/Minerals TAB PO SCH (08:34)
[2016-09-07] MEDS: Docusate CAP* 100 MG PO SCH ×2 (08:34→21:04)
[2016-09-07] MEDS: amLODIPine TAB* 5 MG PO SCH (08:34)
[2016-09-07] MEDS: Thiamine TAB* 100 MG TAB PO SCH (08:34)
[2016-09-07] MEDS: Folic Acid TAB* 1 MG PO SCH (08:34)
[2016-09-07] MEDS: Nicotine GUM* 2 MG PO PRN (08:34)
[2016-09-07] MEDS: Nicotine PATCH 14 MG/24 HR* PATCH TRANSDERM SCH ×2 (08:35→21:06)
[2016-09-07] MEDS: LORazepam TAB(*) 1 MG PO SCH (10:28)
--- NOTE | 2016-09-07 11:55 | PN ---
Subjective Date of Service: 09/07/16 Interval History: Patient seen and examined at bedside. Pt states that he continues to feel anxious. Denies fever, chills, shortness of breath, chest discomfort, N/V/D. Family History: Unchanged from Admission Social History: Unchanged from Admission Past Medical History: Unchanged from Admission Objective Active Medications: Acetaminophen (Tylenol Tab*) 650 mg PO Q6H PRN Reason: FEVER/PAIN Albuterol (Ventolin 2.5 Mg/3 Ml Neb.Reta*) 2.5 mg INH Q2H PRN Reason: SOB/ WHEEZING Amlodipine Besylate (Norvasc Tab*) 10 mg PO DAILY [facility] Docusate Sodium (Colace Cap*) 200 mg PO BID [facility] Folic Acid (Folvite Tab*) 1 mg PO DAILY [facility] Heparin Sodium (Porcine) (Heparin Vial(*)) 5,000 units SUBCUT Q8HR [facility] Hydralazine HCl (Apresoline Iv*) 5 mg IV SLOW PU Q6H PRN Reason: BLOOD PRESSURE Ketorolac Tromethamine (Toradol Inj*) 15 mg IV PUSH Q6H PRN Reason: PAIN Lisinopril (Prinivil Tab*) 10 mg PO DAILY [facility] Lorazepam (Ativan Tab(*)) 0 mg PO .PER WAM SCORE [facility] Reason: Protocol Melatonin (Melatonin (Nf)) 3 mg PO BEDTIME PRN; Protocol Reason: Sleep Multivitamins/Minerals (Theragran/Minerals Tab*) 1 tab PO DAILY [facility] Nicotine (Nicotine Patch 14 Mg/24 Hr*) 1 patch TRANSDERM 2100 [facility] Nicotine Polacrilex (Nicotine Gum*) 2 mg PO Q2H PRN Reason: CRAVING Omeprazole (Prilosec Cap*) 20 mg PO DAILY@0600 [facility] Ondansetron HCl (Zofran Inj*) 4 mg IV Q6H PRN Reason: NAUSEA Pharmacy Profile Note (Nicotine Patch Removal Note*) 1 note PATCH OFF 2100 [facility] Thiamine HCl (Vitamin B-1 Tab*) 100 mg PO DAILY [facility] Trazodone HCl (Desyrel Tab*) 25 mg PO BEDTIME PRN Reason: SLEEP Vital Signs 09/06/16 09/06/16 09/06/16 11:53 12:29 12:35 Temperature Pulse Rate 90 Respiratory 20 22 20 Rate Blood Pressure 142/86 (mmHg) O2 Sat by Pulse Oximetry 0409/06/16 09/06/16 14:35 14:39 15:00 Temperature 97.7 F Pulse Rate 87 Respiratory 20 20 20 Rate Blood Pressure 135/87 (mmHg) O2 Sat by Pulse 98 Oximetry 09/06/16 09/06/16 09/06/16 15:19 17:00 17:14 Temperature 98.1 F 98.4 F Pulse Rate 88 93 Respiratory 18 22 19 Rate Blood Pressure 141/95 140/101 (mmHg) O2 Sat by Pulse 97 97 Oximetry 09/06/16 09/06/16 09/06/16 17:30 18:28 19:30 Temperature 98.0 F Pulse Rate 92 Respiratory 22 18 18 Rate Blood Pressure 135/90 (mmHg) O2 Sat by Pulse 99 Oximetry 09/06/16 09/06/16 09/06/16 20:00 20:01 20:43 Temperature 98.0 F Pulse Rate 87 Respiratory 18 18 20 Rate Blood Pressure 149/94 (mmHg) O2 Sat by Pulse 97 Oximetry 09/06/16 09/06/16 09/07/16 22:00 22:43 00:34 Temperature 97.5 F 97.7 F Pulse Rate 78 81 Respiratory 18 18 18 Rate Blood Pressure 150/95 161/94 (mmHg) O2 Sat by Pulse 98 97 Oximetry 09/07/16 09/07/16 09/07/16 02:18 04:38 06:28 Temperature 97.9 F 97.7 F 97.8 F Pulse Rate 93 89 92 Respiratory 16 16 16 Rate Blood Pressure 152/97 152/107 156/91 (mmHg) O2 Sat by Pulse 96 93 95 Oximetry 09/07/16 09/07/16 09/07/16 08:00 08:04 10:28 Temperature Pulse Rate 78 Respiratory 20 14 20 Rate Blood Pressure (mmHg) O2 Sat by Pulse 97 Oximetry Oxygen Devices in Use Now: None Appearance: NAD, sitting up on the side of the bed Eyes: No Scleral Icterus Ears/Nose/Mouth/Throat: Mucous Membranes Moist Respiratory: Symmetrical Chest Expansion and Respiratory Effort, Clear to Auscultation Cardiovascular: NL Sounds; No Murmurs; No JVD, RRR Abdominal: NL Sounds; No Tenderness; No Distention Extremities: No Edema Skin: No Rash or Ulcers Neurological: Alert and Oriented x 3, NL Muscle Strength and Tone Nutrition: Taking PO's Result Diagrams: 09/06/16 05:37 09/04/16 04:42 Additional Lab and Data: Assess/Plan/Problems-Billing Assessment: Mr. Kilgore is a 55 yo male with PMH significant for alcohol abuse and polysubstance abuse who presented to the emergency room with suicidality and was found to be in alcohol withdrawal. - Patient Problems (1) Alcohol withdrawal Code(s): F10.239 - ALCOHOL DEPENDENCE WITH WITHDRAWAL, UNSPECIFIED SNOMED Code (s): 508846010 Comment: - Hx seizures with withdrawal in the past - Delirium Tremens - WAM score 3-7 - Continue WAM protocol with Ativan - Social work consult (2) Electrolyte abnormality Code(s): E87.8 - OTH DISORDERS OF ELECTROLYTE AND FLUID BALANCE, NEC SNOMED Code(s): 080807369 Comment: - Hypokalemia - resolved - Hyperglycemia - HgA1C 5.8 (3) Transaminitis Code(s): R74.0 - NONSPEC ELEV OF LEVELS OF TRANSAMNS & LACTIC ACID DEHYDRGNSE SNOMED Code(s): 359034037 Comment: - Hep B core IgM ab, Hep B core total Ab, and Hep C antibody negative - Suspect likely secondary to alcohol (4) Substance induced mood disorder Code(s): F19.94 - OTH PSYCHOACTIVE SUBSTANCE USE, UNSP W MOOD DISORDER SNOMED Code(s): 201985154 Comment: - Psychiatry consult, input appreciated (5) HTN (hypertension) Code(s): I10 - ESSENTIAL (PRIMARY) HYPERTENSION SNOMED Code(s): 36191290 Comment: - SBP continues to be 150's - Continue Amlodipine - Start Lisinopril - Continue Hydralazine PRN (6) DVT prophylaxis Code(s): MWJ0386 - SNOMED Code(s): 230285727 Comment: - SQ heparin (7) Full code status Code(s): Z78.9 - OTHER SPECIFIED HEALTH STATUS SNOMED Code(s): 108034367 Status and Disposition: Inpatient. Medically stable for discharge to BSU today or when a bed is available.
[2016-09-07] MEDS: Lisinopril TAB* 10 MG PO SCH (12:36)
[2016-09-07] MEDS: Nicotine Patch Removal NOTE PATCH OFF SCH (21:06)
[2016-09-07] MEDS ORDERED: Zolpidem TAB* 5 MG PO PRN (21:51)
[2016-09-08] MEDS: Omeprazole CAP* 20 MG PO SCH (05:42)
[2016-09-08] MEDS: Heparin VIAL(*) 5000 UNITS/ML VIAL (FIVE THOUSAND) SUBCUT SCH ×3 (05:42→22:33)
[2016-09-08] MEDS: Multivitamins/Minerals TAB PO SCH (07:26)
[2016-09-08] MEDS: amLODIPine TAB* 5 MG PO SCH (07:26)
[2016-09-08] MEDS: Folic Acid TAB* 1 MG PO SCH (07:26)
[2016-09-08] MEDS: Docusate CAP* 100 MG PO SCH (07:26)
[2016-09-08] MEDS: Thiamine TAB* 100 MG TAB PO SCH (07:26)
[2016-09-08] MEDS: Lisinopril TAB* 10 MG PO SCH (07:26)
[2016-09-08] MEDS: Acetaminophen TAB* 325 MG PO PRN (10:28)
--- NOTE | 2016-09-08 11:13 | PN ---
Subjective Date of Service: 09/08/16 Interval History: C/O anxiety, states he takes alprazolam or clonazepam PRN at home for this. Family History: Unchanged from Admission Social History: Unchanged from Admission Past Medical History: Unchanged from Admission Objective Active Medications: Acetaminophen (Tylenol Tab*) 650 mg PO Q6H PRN PRN Reason: FEVER/PAIN Last Admin: 09/08/16 10:28 Dose: 650 mg Albuterol (Ventolin 2.5 Mg/3 Ml Neb.Reta*) 2.5 mg INH Q2H PRN PRN Reason: SOB/WHEEZING Amlodipine Besylate (Norvasc Tab*) 10 mg PO DAILY [facility] Last Admin: 09/08/16 07:26 Dose: 10 mg Atenolol (Tenormin Tab*) 25 mg PO DAILY [facility] Folic Acid (Folvite Tab*) 1 mg PO DAILY [facility] Last Admin: 09/08/16 07:26 Dose: 1 mg Heparin Sodium (Porcine) (Heparin Vial(*)) 5,000 units SUBCUT Q8HR [facility] Last Admin: 09/08/16 05:42 Dose: 5,000 units Lisinopril (Prinivil Tab*) 10 mg PO DAILY [facility] Last Admin: 09/08/16 07:26 Dose: 10 mg Multivitamins/Minerals (Theragran/Minerals Tab*) 1 tab PO DAILY [facility] Last Admin: 09/08/16 07:26 Dose: 1 tab Nicotine (Nicotine Patch 14 Mg/24 Hr*) 1 patch TRANSDERM 2100 [facility] Last Admin: 09/07/16 21:06 Dose: 1 patch Nicotine Polacrilex (Nicotine Gum*) 2 mg PO Q2H PRN PRN Reason: CRAVING Last Admin: 09/07/16 08:34 Dose: 2 mg Omeprazole (Prilosec Cap*) 20 mg PO DAILY@0600 [facility] Last Admin: 09/08/16 05:42 Dose: 20 mg Ondansetron HCl (Zofran Inj*) 4 mg IV Q6H PRN PRN Reason: NAUSEA Last Admin: 09/05/16 09:11 Dose: 4 mg Pharmacy Profile Note (Nicotine Patch Removal Note*) 1 note PATCH OFF 2100 [facility] Last Admin: 09/07/16 21:06 Dose: 1 note Thiamine HCl (Vitamin B-1 Tab*) 100 mg PO DAILY [facility] Last Admin: 09/08/16 07:26 Dose: 100 mg Trazodone HCl (Desyrel Tab*) 25 mg PO BEDTIME PRN PRN Reason: SLEEP Last Admin: 09/06/16 23:03 Dose: 25 mg Vital Signs 09/07/16 09/07/16 09/07/16 12:15 12:20 14:25 Temperature 97.7 F 97.5 F Pulse Rate 83 87 Respiratory 18 18 18 Rate Blood Pressure 157/110 157/107 (mmHg) O2 Sat by Pulse 96 97 Oximetry 09/07/16 09/07/16 09/07/16 15:22 19:52 20:00 Temperature 97.7 F 98.6 F Pulse Rate 91 97 Respiratory 18 16 16 Rate Blood Pressure 149/105 160/96 (mmHg) O2 Sat by Pulse 97 98 Oximetry 09/07/16 09/08/16 09/08/16 21:54 00:03 00:12 Temperature 97.7 F 98.3 F 98.3 F Pulse Rate 92 88 88 Respiratory 20 16 16 Rate Blood Pressure 159/109 146/86 146/86 (mmHg) O2 Sat by Pulse 96 93 93 Oximetry 09/08/16 09/08/16 09/08/16 01:54 01:55 03:54 Temperature 98.4 F 98.4 F 98.2 F Pulse Rate 76 76 84 Respiratory 16 16 16 Rate Blood Pressure 135/89 135/89 155/77 (mmHg) O2 Sat by Pulse 95 95 97 Oximetry 09/08/16 09/08/16 09/08/16 05:50 07:33 08:00 Temperature 98.5 F Pulse Rate 87 76 Respiratory 16 16 Rate Blood Pressure 156/101 141/88 (mmHg) O2 Sat by Pulse 97 97 Oximetry Oxygen Devices in Use Now: None Appearance: Alert, supine in bed. Anxious but cooperative, otherwise looks uncomfortable. Eyes: No Scleral Icterus Ears/Nose/Mouth/Throat: Clear Oropharnyx, Mucous Membranes Moist Neck: NL Appearance and Movements; NL JVP, No Thyroid Enlargement, Masses Respiratory: Symmetrical Chest Expansion and Respiratory Effort, Clear to Auscultation, Clear to Percussion Extremities: No Edema, No Clubbing, Cyanosis, - Skin: No Rash or Ulcers, No Nodules or Sclerosis, - Neurological: Alert and Oriented x 3, NL Sensation Result Diagrams: 09/06/16 05:37 09/04/16 04:42 Additional Lab and Data: Assess/Plan/Problems-Billing Assessment: Mr. Kilgore is a 55 yo male with PMH significant for alcohol abuse and polysubstance abuse who presented to the emergency room with suicidality and was found to be in alcohol withdrawal. - Patient Problems (1) Alcohol withdrawal Current Visit: Yes Status: Acute Code(s): F10.239 - ALCOHOL DEPENDENCE WITH WITHDRAWAL, UNSPECIFIED SNOMED Code(s): 534675749 Comment: No lorazepam for past 48 hrs, will d/c [place] protocol 09/08. (2) Suicidal behavior Current Visit: Yes Status: Acute Code(s): R46.89 - OTHER SYMPTOMS AND SIGNS INVOLVING APPEARANCE AND BEHAVIOR SNOMED Code(s): 095567643 Comment: Inpt psychiatric hosprialization recommended by the psychiatric security system sales consultant. No bed available here. SW to look for bed elsewhere. (3) HTN (hypertension) Current Visit: Yes Status: Acute Code(s): I10 - ESSENTIAL (PRIMARY) HYPERTENSION SNOMED Code(s): 06940583 Comment: - Continue Amlodipine, lisinopril, add atenolol. (4) Anxiety Current Visit: Yes Status: Acute Code(s): F41.9 - ANXIETY DISORDER, UNSPECIFIED SNOMED Code(s): 72736042 Comment: Start sertraline 50 mg daily 09/08. Status and Disposition: Inpatient. Medically stable for discharge to psychiatric bed today or when a bed is available.
[2016-09-08] MEDS: Atenolol TAB* 25 MG PO SCH (11:14)
[2016-09-08] MEDS: Sertraline* 50 MG TAB PO SCH (11:26)
[2016-09-08] MEDS ORDERED: hydrOXYzine HCL TAB* 50 MG PO ONE (14:00)
[2016-09-08] MEDS: hydrOXYzine HCL TAB* 25 MG PO PRN (17:40)
[2016-09-08] MEDS: Nicotine PATCH 14 MG/24 HR* PATCH TRANSDERM SCH (22:32)
[2016-09-08] MEDS: Nicotine Patch Removal NOTE PATCH OFF SCH (22:33)
[2016-09-08] MEDS: traZODone TAB* 50 MG TAB PO PRN (22:34)
--- NOTE | 2016-09-09 04:25 | DS ---
Amended report to enter date of admission. DISCHARGE SUMMARY: DATE OF ADMISSION: 09/03/2016. DATE OF DISCHARGE: To be determined. HOSPITAL COURSE: This 55-year-old man presented with suicidal ideation, I note he is on probation because of felonyRAHULJoellen. He failed a drug test on probation and expected to be sent to skilled nursing. He made suicidal statements to his ex-. She drove him to the emergency room for evaluation. The rest of the history is detailed in the admission note. His blood alcohol level on 09/03/16 at 0016 hours was 69. He was placed on the lorazepam detox protocol, he did well. I think he has been completely off tranquilizers for about 48 hours. On September 08, he complained of anxiety. I started him on sertraline 50 mg daily on that day. He was also started on several medicines for his hypertension. FINAL DIAGNOSES: 1. Suicidal behavior. 2. Alcohol withdrawal. 3. Hypertension. DISCHARGE MEDICATIONS: 1. Atenolol 25 mg daily. 2. Lisinopril 10 mg daily. 3. Amlodipine 10 mg daily. 4. Trazodone 25 mg h.s. 5. Sertraline 50 mg daily. 6. Thiamine 100 mg daily. 7. Nicotine patch 14 mg daily every day. 8. Albuterol ipratropium nebulizer p.r.n. [id number]/[facility] #: [id number] MTDD
[2016-09-09] MEDS: Heparin VIAL(*) 5000 UNITS/ML VIAL (FIVE THOUSAND) SUBCUT SCH ×3 (05:55→22:35)
[2016-09-09] MEDS: Atenolol TAB* 25 MG PO SCH (07:50)
[2016-09-09] MEDS: Thiamine TAB* 100 MG TAB PO SCH (07:50)
[2016-09-09] MEDS: Sertraline* 50 MG TAB PO SCH (07:50)
[2016-09-09] MEDS: amLODIPine TAB* 5 MG PO SCH (07:51)
[2016-09-09] MEDS: Lisinopril TAB* 10 MG PO SCH (07:52)
[2016-09-09] MEDS: Folic Acid TAB* 1 MG PO SCH (07:52)
[2016-09-09] MEDS: hydrOXYzine HCL TAB* 25 MG PO PRN ×3 (09:44→20:12)
[2016-09-09] MEDS: Acetaminophen TAB* 325 MG PO PRN ×2 (14:22→20:11)
--- NOTE | 2016-09-09 15:59 | PN ---
Subjective Date of Service: 09/09/16 Interval History: HOSPITALIST PROGRESS NOTE Patient seen and examined at bedside. He's major complaint today is anxiety. Has mild left wrist pain, relieved with splint use. Family History: Unchanged from Admission Social History: Unchanged from Admission Past Medical History: Unchanged from Admission Objective Active Medications: Acetaminophen (Tylenol Tab*) 650 mg PO Q6H PRN PRN Reason: FEVER/PAIN Last Admin: 09/09/16 14:22 Dose: 650 mg Albuterol (Ventolin 2.5 Mg/3 Ml Neb.Reta*) 2.5 mg INH Q2H PRN PRN Reason: SOB/WHEEZING Amlodipine Besylate (Norvasc Tab*) 10 mg PO DAILY [facility] Last Admin: 09/09/16 07:51 Dose: 10 mg Atenolol (Tenormin Tab*) 25 mg PO DAILY [facility] Last Admin: 09/09/16 07:50 Dose: 25 mg Folic Acid (Folvite Tab*) 1 mg PO DAILY [facility] Last Admin: 09/09/16 07:52 Dose: 1 mg Heparin Sodium (Porcine) (Heparin Vial(*)) 5,000 units SUBCUT Q8HR [facility] Last Admin: 09/09/16 14:18 Dose: 5,000 units Hydroxyzine HCl (Atarax Tab*) 25 mg PO Q4H PRN PRN Reason: ANXIETY Last Admin: 09/09/16 14:22 Dose: 25 mg Lisinopril (Prinivil Tab*) 10 mg PO DAILY [facility] Last Admin: 09/09/16 07:52 Dose: 10 mg Nicotine (Nicotine Patch 14 Mg/24 Hr*) 1 patch TRANSDERM 2100 [facility] Last Admin: 09/08/16 22:32 Dose: 1 patch Nicotine Polacrilex (Nicotine Gum*) 2 mg PO Q2H PRN PRN Reason: CRAVING Last Admin: 09/07/16 08:34 Dose: 2 mg Ondansetron HCl (Zofran Inj*) 4 mg IV Q6H PRN PRN Reason: NAUSEA Last Admin: 09/05/16 09:11 Dose: 4 mg Pharmacy Profile Note (Nicotine Patch Removal Note*) 1 note PATCH OFF 2100 [facility] Last Admin: 09/08/16 22:33 Dose: 1 note Sertraline HCl (Zoloft*) 50 mg PO DAILY [facility] Last Admin: 09/09/16 07:50 Dose: 50 mg Thiamine HCl (Vitamin B-1 Tab*) 100 mg PO DAILY [facility] Last Admin: 09/09/16 07:50 Dose: 100 mg Trazodone HCl (Desyrel Tab*) 25 mg PO BEDTIME PRN PRN Reason: SLEEP Last Admin: 09/08/16 22:34 Dose: 25 mg Vital Signs 09/09/16 09/09/16 09/09/16 06:00 06:51 08:37 Temperature 98.3 F 98.1 F Pulse Rate 61 58 Respiratory 16 18 16 Rate Blood Pressure 117/74 137/89 (mmHg) O2 Sat by Pulse 97 97 Oximetry Oxygen Devices in Use Now: None Appearance: Pleasant middle aged male sitting up in bed in NAD. Eyes: No Scleral Icterus Ears/Nose/Mouth/Throat: Mucous Membranes Moist Neck: Trachea Midline Respiratory: Symmetrical Chest Expansion and Respiratory Effort, Clear to Auscultation Cardiovascular: NL Sounds; No Murmurs; No JVD, RRR Extremities: No Edema Neurological: Alert and Oriented x 3, NL Muscle Strength and Tone Nutrition: Taking PO's Result Diagrams: 09/06/16 05:37 09/04/16 04:42 Assess/Plan/Problems-Billing Assessment: Mr. Kilgore is a 55 yo male with PMH significant for alcohol abuse and polysubstance abuse who presented to the emergency room with suicidality and was found to be in alcohol withdrawal. - Patient Problems (1) Alcohol withdrawal Comment: - Resolved. (2) Anxiety Comment: - Continue Sertraline 50 mg daily and Hydroxyzine PRN. (3) Suicidal behavior Comment: - D/w Psych today - may have available bed later tonight or tomorrow. - Continue 1:1. (4) HTN (hypertension) Comment: - Controlled with Amlodipine, lisinopril, and atenolol. (5) DVT prophylaxis Comment: - SQ heparin (6) Full code status Status and Disposition: Inpatient. Medically stable for discharge to psychiatric bed today or when a bed is available.
[2016-09-09] MEDS: Nicotine PATCH 14 MG/24 HR* PATCH TRANSDERM SCH (20:10)
[2016-09-09] MEDS: Nicotine Patch Removal NOTE PATCH OFF SCH (20:11)
[2016-09-09] MEDS: traZODone TAB* 50 MG TAB PO PRN (23:40)
[2016-09-10] MEDS: hydrOXYzine HCL TAB* 25 MG PO PRN ×2 (03:10→08:22)
[2016-09-10] MEDS: Folic Acid TAB* 1 MG PO SCH (08:06)
[2016-09-10] MEDS: amLODIPine TAB* 5 MG PO SCH (08:07)
[2016-09-10] MEDS: Thiamine TAB* 100 MG TAB PO SCH (08:07)
[2016-09-10] MEDS: Lisinopril TAB* 10 MG PO SCH (08:08)
[2016-09-10] MEDS: Atenolol TAB* 25 MG PO SCH (08:08)
[2016-09-10] MEDS: Sertraline* 50 MG TAB PO SCH (08:08)
[2016-09-10] MEDS: Heparin VIAL(*) 5000 UNITS/ML VIAL (FIVE THOUSAND) SUBCUT SCH (08:09)
[2016-09-10 11:44] VITALS: BP 141/93
--- NOTE | 2016-09-11 04:35 | DS ---
DISCHARGE SUMMARY: DATE OF ADMISSION: 09/03/16 DATE OF DISCHARGE: 09/10/16 ADDENDUM: For details about the patient's hospital stay, I refer you to the discharge summary from Melly Bowman NP, from 09/06/16 and the other one from Dr. Gambino from 09/08/16. The patient was being observed on the medical floor while he awaited for a mental health unit bed. As we had no beds in our facility, social studies teacher was working to get him a bed in another hospital. The patient had no specific complaints. He was feeling better and looking forward to a Mental Health Unit stay. On September 10, a bed became available at our Mental Health Unit and the patient is stable for discharge. His medications are unchanged and no other significant events had happened. [id number]/[facility] #: [id number] MTDD
== END 2016-09-10 12:46 | DRG 773 ==
LOC: ED 20:57 → MEDTELE 09-03 01:17 → OBSVTOIN 09-03 18:50
PROVIDERS: ADMIT Hospitalist; ATTEND Internal Medicine
DX: F10.231 Alcohol dependence with withdrawal delirium (principal); F11.10 Opioid abuse, uncomplicated; R45.851 Suicidal ideations; F19.14 Other psychoactive substance abuse with psychoactive substance-induced mood disorder; I10 Essential (primary) hypertension; F32.9 Major depressive disorder, single episode, unspecified; F17.210 Nicotine dependence, cigarettes, uncomplicated; E66.9 Obesity, unspecified; Y90.9 Presence of alcohol in blood, level not specified; F14.10 Cocaine abuse, uncomplicated; F13.10 Sedative, hypnotic or anxiolytic abuse, uncomplicated; E87.6 Hypokalemia; R73.9 Hyperglycemia, unspecified; R74.0 Nonspecific elevation of levels of transaminase and lactic acid dehydrogenase [LDH]; F41.9 Anxiety disorder, unspecified; Z68.30 Body mass index [BMI] 30.0-30.9, adult; Z79.01 Long term (current) use of anticoagulants
CPT/HCPCS: 36415; 70450; 80048; 80053; 80307; 80320; 80329; 81003; 83036; 84443; 85025; 86704; 86705; 86803; 93005; A9270-GY; G0480; J0360; J1644; J1885; J2060; J2405

== ENCOUNTER 2016-09-10 09:12 | Inpatient (IN) | payer BC, OTHER ==
[2016-09-10] MEDS ORDERED: Mouth Piece, Nicotine* 1 EACH CARTRIDGE INH PRN (13:04)
[2016-09-10] MEDS ORDERED: Albuterol 2.5 MG/3 ML NEB.SOL* (0.083%) INH PRN (14:17)
[2016-09-10] MEDS ORDERED: Nicotine GUM* 2 MG PO PRN (14:19)
[2016-09-10] MEDS: Acetaminophen TAB* 325 MG PO PRN ×2 (14:39→20:24)
[2016-09-10] MEDS: hydrOXYzine HCL TAB* 25 MG PO PRN ×2 (14:40→20:24)
[2016-09-10] MEDS: traZODone TAB* 50 MG TAB PO PRN (20:25)
[2016-09-10] MEDS: Nicotine Inhaler* 10 MG AMP INH PRN (20:37)
[2016-09-11] MEDS: Folic Acid TAB* 1 MG PO SCH (09:18)
[2016-09-11] MEDS: Thiamine TAB* 100 MG TAB PO SCH (09:18)
[2016-09-11] MEDS: amLODIPine TAB* 5 MG PO SCH (09:18)
[2016-09-11] MEDS: Lisinopril TAB* 10 MG PO SCH (09:19)
[2016-09-11] MEDS: Atenolol TAB* 25 MG PO SCH (09:19)
[2016-09-11] MEDS: Sertraline* 50 MG TAB PO SCH (09:23)
[2016-09-11] MEDS: hydrOXYzine HCL TAB* 25 MG PO PRN ×3 (09:28→21:39)
[2016-09-11] MEDS: Nicotine PATCH 14 MG/24 HR* PATCH TRANSDERM SCH (09:49)
--- NOTE | 2016-09-11 13:28 | HP ---
History & Physical Patient: QUIQUE LEONARD /Age: 08 1960 55 Medical Record#: [id number] Admission Date: 09/10/16 Provider: Juan Yoo MD HISTORY AND PHYSICAL: This is an update to the consultation report from Dr. Manolo Ngo on . DATE OF ADMISSION: 09/10/16 DATE OF REEVALUATION: 09/11/16 IDENTIFICATION: Mr. Leonard is a 55-year-old, white male with a history of significant head trauma and bipolar disorder by history, who was brought to the emergency department by his ex- after he told her that he was experiencing suicidal ideation in the context of alcohol withdrawal. HISTORY OF PRESENT ILLNESS: For full report of circumstances preceding his admission to the medical floor for detox from alcohol out of concern for DTs, please see the note from 09/04/[address] Ngo. In brief, the patient had relapse to opiates and alcohol after receiving a prescription for Vicodin for a broken arm suffered at [facility] of in [place]. He has been under drug court supervision from [facility], but after the rehab that he went to in the [facility], wound up staying there, living in [place], working at . He hopes that he can go back there but he is concerned that drug court will not allow this. He understands that he will need to do at least a 7-day "sanction" incarceration for his failure to appear in drug court due to his relapse to substances. He states that he would prefer to keep this hospitalization brief and to get on with what he needs to do legally. He reports that he has had remission of suicidal ideation at this point and has had no other concerning psychiatric symptoms. For past psychiatric history, past medical history, substance abuse history, and social history, please refer to Dr. Ngo's note from 09/04/16. PHYSICAL EXAMINATION Last performed on the medical floor. The patient declines a repeat physical examination. He was medically cleared for this admission. Vital signs last recorded in the EMR this morning are temp of 98.3, pulse of 55 , O2 saturation 94% on room air with blood pressure of 124/76, respiration rate 16. MENTAL STATUS EXAMINATION: This is a pleasant man, who is well-engaged in the conversation. He has adequate grooming and hygiene. He has some pauses in his speech but otherwise has regular rate, rhythm, and volume. He has a linear and goal-directed thought process. His mood is reported as "fair" and "tired." His affect is congruent to that report. He is calm. He shows no signs of deficits of cognition, attention, or memory. His insight and judgment are fair. His impulse control is intact. He denies any auditory or visual hallucinations or paranoid ideation. He denies any homicidal ideation. He denies any continued suicidal ideation. LABORATORY DATA: CBC done on 09/06/16 found a mildly low hematocrit to 39. His last CMP on 09/03/16 found low potassium to 3.4, elevations of glucose to 176, AST 93, ALT 82, and alk phos to 128. Repeat BMP found glucose level reduced to 113. Urinalysis on 09/02/16 was clear except for 1+ glucose. Toxicology screen on 09/02/16 and 09/03/16 found opiates, benzodiazepines, and a blood alcohol level of 69. Serology screens for hep B and hep C were all negative and nonreactive. ASSESSMENT AND PLAN: Quique Leonard is a 55-year-old, white male with history significant for head trauma and putative bipolar disorder who has been abusing drugs and presented to the hospital in acute alcohol withdrawal, reporting suicidal ideation. He has been medically cleared through detox from substances on the medical floor. He voices sustained remission of suicidality and denies any other active psychiatric symptoms. He seeks transfer to incarceration that he must undergo as part of his drug court obligations and is hopeful that he can move on from there to recover his job with [employer] in [place] , although he is concerned that drug court may not permit this. He also has some concerns about his finances, for example some losses on his credit card or bank card that he needs to investigate. His only physical complaint at this time is feeling tired. We will monitor his mental status to ensure sustained remission of SI and plan toward discharge into custody of drug court per his wishes. We will continue Zoloft and trazodone for now, and survey for history of cm to confirm or refute reported history of bipolar disorder. DIAGNOSES: 1. Substance-induced mood disorder. 2. Opiate use disorder. 3. Cocaine use disorder. 4. Alcohol use disorder. 5. Bipolar disorder by history. [id number]/[facility] #: [id number] Juan Yoo MD Dictated Date/Time: 09/11/16 1154 Transcribed Date/Time 09/11/16 1248 Copy to: CC: Juan Yoo MD [facility]
[2016-09-11] MEDS: traZODone TAB* 50 MG TAB PO PRN (21:38)
[2016-09-11] MEDS: Nicotine Patch Removal NOTE PATCH OFF SCH (21:44)
[2016-09-12] MEDS: Thiamine TAB* 100 MG TAB PO SCH (08:36)
[2016-09-12] MEDS: Folic Acid TAB* 1 MG PO SCH (08:36)
[2016-09-12] MEDS: Sertraline* 50 MG TAB PO SCH (08:36)
[2016-09-12] MEDS: Atenolol TAB* 25 MG PO SCH (08:36)
[2016-09-12] MEDS: Lisinopril TAB* 10 MG PO SCH (08:37)
[2016-09-12] MEDS: amLODIPine TAB* 5 MG PO SCH (08:37)
[2016-09-12] MEDS: Nicotine PATCH 14 MG/24 HR* PATCH TRANSDERM SCH (08:38)
[2016-09-12] MEDS: hydrOXYzine HCL TAB* 25 MG PO PRN ×3 (08:59→19:38)
--- NOTE | 2016-09-12 11:19 | PN ---
MHU: Group Therapy Note - Service Type Service Type: 61363 Group Psychotherapy - Cognitive Behavioral Group Therapy ( CBT):Patient was attentive and participatory in CBT programming this morning, and remained in good behavioral control. Patient expressed positive insights regarding relevant treatment interventions and goals.
[2016-09-12] MEDS: Nicotine Inhaler* 10 MG AMP INH PRN (15:39)
--- NOTE | 2016-09-12 17:44 | PN ---
Subjective - Subjective Service Type: 82532 Hosp care 15 min low complexity Subjective: Quique agrees to discharge on Thursday to custody of [facility]. He has no physical complaints. Objective - Appearance Appearance: Well Developed/Nourished Dysmorphic Features: No Hygiene: Normal Grooming: Fairly Well Kept - Behavior Psychomotor Activities: Normal Exhibits Abnormal Movement: No - Attitude and Relatedness Attitude and Relatedness: Well Related Eye Contact: Good - Speech Quality: Unpressured Latencies: Normal Quantity: Appropriate - Mood Patient's Decription of Mood: "Anxious" - Affect Observed Affect: Tense Affect Consistent with: Dysphoria - Thought Process Patient's Thought Process: Coherent, Goal Directed Thought Content: No Passive Wish, No Suicidal Planning, No Homicidal Ideation, No Paranoid Ideation - Sensorium Experiencing Hallucinations: No, Sensorium is Clear Type of Hallucinations: Visual: No, Auditory: No, Command: No - Level of Consciousness Level of Consciousness: Alert Orientation: Yes Intact, Yes Orientated to Time, Yes Orientated to Place, Yes Orientated to Person - Impulse Control Impulse Control: Intact - Insight and Judgement Insight and Judgement: Fair - Group Participation Particating in Group Activities: Yes - Medication Management Medication Management Adherence: Yes Assessment - Assessment Merits Inpatient Hospitalization: For Stabilization, Consolidate Improvements, For Discharge Planning Inpatient DSM-IV Dx: 1. Substance-induced mood disorder. 2. Opiate use disorder. 3. Cocaine use disorder. 4. Alcohol use disorder. 5. Bipolar disorder by history. Clinical Impression: Quique Leonard is a 55-year-old, white male with history significant for head trauma and putative bipolar disorder who has been abusing drugs and presented to the hospital in acute alcohol withdrawal, reporting suicidal ideation. He has been medically cleared through detox from substances on the medical floor. He voices sustained remission of suicidality and denies any other active psychiatric symptoms. He seeks transfer to incarceration that he must undergo as part of his drug court obligations and is hopeful that he can move on from there to recover his job with in [place], although he is concerned that drug court may not permit this. He also has some concerns about his finances, for example some losses on his credit card or bank card that he needs to investigate. His only physical complaint at this time is feeling tired. We will monitor his mental status to ensure sustained remission of SI and plan toward discharge into custody of drug court per his wishes. Day 2: Quique reports continued anxiety and low mood. He is agreeable to discharge to drug court thursday. He is med and meal and group compliant. Plan - Plan Treatment Plan: Name: QUIQUE LEONARD Birthdate: 1960 [id number] Continue meds. Encourage groups and milieu. Monitor MS and safety. Medications: Current Medications Acetaminophen (Tylenol Tab*) 650 mg PO Q6H PRN PRN Reason: FEVER/PAIN Last Admin: 09/10/16 20:24 Dose: 650 mg Albuterol (Ventolin 2.5 Mg/3 Ml Neb.Reta*) 2.5 mg INH Q2H PRN PRN Reason: SOB/WHEEZING Amlodipine Besylate (Norvasc Tab*) 10 mg PO DAILY [facility] Last Admin: 09/12/16 08:37 Dose: 10 mg Atenolol (Tenormin Tab*) 25 mg PO DAILY [facility] Last Admin: 09/12/16 08:36 Dose: 25 mg Device (Nicotine Mouth Piece*) 1 each INH ONCE PRN PRN Reason: CRAVINGS Last Admin: 09/10/16 20:37 Dose: 1 each Folic Acid (Folvite Tab*) 1 mg PO DAILY [facility] Last Admin: 09/12/16 08:36 Dose: 1 mg Hydroxyzine HCl (Atarax Tab*) 25 mg PO Q4H PRN PRN Reason: ANXIETY Last Admin: 09/12/16 15:39 Dose: 25 mg Lisinopril (Prinivil Tab*) 10 mg PO DAILY [facility] Last Admin: 09/12/16 08:37 Dose: 10 mg Nicotine (Nicotine Inhaler*) 10 mg INH Q2H PRN PRN Reason: CRAVING Last Admin: 09/12/16 15:39 Dose: 10 mg Nicotine (Nicotine Patch 14 Mg/24 Hr*) 1 patch TRANSDERM Q24HR [facility] Last Admin: 09/12/16 08:38 Dose: 1 patch Nicotine Polacrilex (Nicotine Gum*) 2 mg PO Q2H PRN PRN Reason: CRAVINGS Pharmacy Profile Note (Nicotine Patch Removal Note*) 1 note PATCH OFF 2100 [facility] Last Admin: 09/11/16 21:44 Dose: 1 note Sertraline HCl (Zoloft*) 50 mg PO DAILY [facility] Last Admin: 09/12/16 08:36 Dose: 50 mg Thiamine HCl (Vitamin B-1 Tab*) 100 mg PO DAILY [facility] Last Admin: 09/12/16 08:36 Dose: 100 mg Trazodone HCl (Desyrel Tab*) 25 mg PO BEDTIME PRN PRN Reason: SLEEP Last Admin: 09/11/16 21:38 Dose: 25 mg - Discharge Plan Discharge Plan: Outpatient Follow Up - following drug court sentence served
[2016-09-12] MEDS: Acetaminophen TAB* 325 MG PO PRN (19:38)
[2016-09-12] MEDS: traZODone TAB* 50 MG TAB PO PRN (20:35)
[2016-09-12] MEDS: Nicotine Patch Removal NOTE PATCH OFF SCH (20:36)
[2016-09-13] MEDS: hydrOXYzine HCL TAB* 25 MG PO PRN ×4 (08:05→20:48)
[2016-09-13] MEDS: Nicotine PATCH 14 MG/24 HR* PATCH TRANSDERM SCH (08:05)
[2016-09-13] MEDS: amLODIPine TAB* 5 MG PO SCH (08:06)
[2016-09-13] MEDS: Sertraline* 50 MG TAB PO SCH (08:07)
[2016-09-13] MEDS: Folic Acid TAB* 1 MG PO SCH (08:07)
[2016-09-13] MEDS: Thiamine TAB* 100 MG TAB PO SCH (08:07)
[2016-09-13] MEDS: Atenolol TAB* 25 MG PO SCH (08:08)
[2016-09-13] MEDS: Lisinopril TAB* 10 MG PO SCH (08:08)
--- NOTE | 2016-09-13 15:49 | PN ---
Subjective - Subjective Service Type: 94187 Hosp care 15 min low complexity Subjective: No complaints. Objective - Appearance Appearance: Well Developed/Nourished, Healthy Appearing Dysmorphic Features: No Hygiene: Normal Grooming: Disheveled - Behavior Psychomotor Activities: Abnormal-Decreased - in bed early afternoon Exhibits Abnormal Movement: No - Attitude and Relatedness Attitude and Relatedness: Cooperative Eye Contact: Good - Speech Quality: Unpressured Latencies: Normal Quantity: Appropriate - Mood Patient's Decription of Mood: "Fair" - Affect Observed Affect: Fair Affect Consistent with: Euthymia - Thought Process Patient's Thought Process: Coherent, Goal Directed Thought Content: No Passive Wish, No Suicidal Planning, No Homicidal Ideation, No Paranoid Ideation - Sensorium Experiencing Hallucinations: No, Sensorium is Clear Type of Hallucinations: Visual: No, Auditory: No, Command: No - Level of Consciousness Level of Consciousness: Alert Orientation: Yes Intact, Yes Orientated to Time, Yes Orientated to Place, Yes Orientated to Person - Impulse Control Impulse Control: Intact - Insight and Judgement Insight and Judgement: Fair - Group Participation Particating in Group Activities: Yes - Medication Management Medication Management Adherence: Yes Assessment - Assessment Merits Inpatient Hospitalization: [facility], For Discharge Planning Inpatient DSM-IV Dx: 1. Substance-induced mood disorder. 2. Opiate use disorder. 3. Cocaine use disorder. 4. Alcohol use disorder. 5. Bipolar disorder by history. Clinical Impression: Quique Leonard is a 55-year-old, white male with history significant for head trauma and putative bipolar disorder who has been abusing drugs and presented to the hospital in acute alcohol withdrawal, reporting suicidal ideation. He has been medically cleared through detox from substances on the medical floor. He voices sustained remission of suicidality and denies any other active psychiatric symptoms. He seeks transfer to incarceration that he must undergo as part of his drug court obligations and is hopeful that he can move on from there to recover his job with [employer] in [place], although he is concerned that drug court may not permit this. He also has some concerns about his finances, for example some losses on his credit card or bank card that he needs to investigate. His only physical complaint at this time is feeling tired. We will monitor his mental status to ensure sustained remission of SI and plan toward discharge into custody of drug court per his wishes. Day 2: Quique reports continued anxiety and low mood. He is agreeable to discharge to drug court thursday. He is med and meal and group compliant. Day 3: Quique reports fair mood and sustained remission of SI. Plan - Plan Treatment Plan: Name: QUIQUE LEONARD Birthdate: 1960 [id number] Continue meds. Encourage groups and milieu. Monitor MS and safety. Prepare for discharge Thursday. Medications: Current Medications Acetaminophen (Tylenol Tab*) 650 mg PO Q6H PRN PRN Reason: FEVER/PAIN Last Admin: 09/12/16 19:38 Dose: 650 mg Albuterol (Ventolin 2.5 Mg/3 Ml Neb.Reta*) 2.5 mg INH Q2H PRN PRN Reason: SOB/WHEEZING Amlodipine Besylate (Norvasc Tab*) 10 mg PO DAILY [facility] Last Admin: 09/13/16 08:06 Dose: 10 mg Atenolol (Tenormin Tab*) 25 mg PO DAILY [facility] Last Admin: 09/13/16 08:08 Dose: 25 mg Device (Nicotine Mouth Piece*) 1 each INH ONCE PRN PRN Reason: CRAVINGS Last Admin: 09/10/16 20:37 Dose: 1 each Folic Acid (Folvite Tab*) 1 mg PO DAILY [facility] Last Admin: 09/13/16 08:07 Dose: 1 mg Hydroxyzine HCl (Atarax Tab*) 25 mg PO Q4H PRN PRN Reason: ANXIETY Last Admin: 09/13/16 12:08 Dose: 25 mg Lisinopril (Prinivil Tab*) 10 mg PO DAILY [facility] Last Admin: 09/13/16 08:08 Dose: 10 mg Nicotine (Nicotine Inhaler*) 10 mg INH Q2H PRN PRN Reason: CRAVING Last Admin: 09/12/16 15:39 Dose: 10 mg Nicotine (Nicotine Patch 14 Mg/24 Hr*) 1 patch TRANSDERM Q24HR [facility] Last Admin: 09/13/16 08:05 Dose: 1 patch Nicotine Polacrilex (Nicotine Gum*) 2 mg PO Q2H PRN PRN Reason: CRAVINGS Pharmacy Profile Note (Nicotine Patch Removal Note*) 1 note PATCH OFF 2100 [facility] Last Admin: 09/12/16 20:36 Dose: 1 note Sertraline HCl (Zoloft*) 50 mg PO DAILY [facility] Last Admin: 09/13/16 08:07 Dose: 50 mg Thiamine HCl (Vitamin B-1 Tab*) 100 mg PO DAILY [facility] Last Admin: 09/13/16 08:07 Dose: 100 mg Trazodone HCl (Desyrel Tab*) 25 mg PO BEDTIME PRN PRN Reason: SLEEP Last Admin: 09/12/16 20:35 Dose: 25 mg
[2016-09-13] MEDS: Nicotine Inhaler* 10 MG AMP INH PRN (16:35)
[2016-09-13] MEDS: Nicotine Patch Removal NOTE PATCH OFF SCH (20:48)
[2016-09-13] MEDS: traZODone TAB* 50 MG TAB PO PRN (20:49)
[2016-09-14 08:14] VITALS: BP 151/90
[2016-09-14] MEDS: Atenolol TAB* 25 MG PO SCH (08:33)
[2016-09-14] MEDS: Thiamine TAB* 100 MG TAB PO SCH (08:34)
[2016-09-14] MEDS: Sertraline* 50 MG TAB PO SCH (08:34)
[2016-09-14] MEDS: Folic Acid TAB* 1 MG PO SCH (08:34)
[2016-09-14] MEDS: amLODIPine TAB* 5 MG PO SCH (08:34)
[2016-09-14] MEDS: Lisinopril TAB* 10 MG PO SCH (08:34)
[2016-09-14] MEDS: hydrOXYzine HCL TAB* 25 MG PO PRN ×2 (08:35→13:27)
[2016-09-14] MEDS: Nicotine PATCH 14 MG/24 HR* PATCH TRANSDERM SCH (08:35)
[2016-09-14] MEDS: Nicotine Inhaler* 10 MG AMP INH PRN (09:45)
--- NOTE | 2016-09-14 13:50 | DS ---
Subjective - Subjective Discharge Date: 09/14/16 Subjective: Kevyn reports feeling safe and ready for transfer to [facility] to serve out his time for violation of probation from drug court. He is optimistic about coming out of this difficult circumstance OK. He has reported full, sustained remission of SI. Objective - Appearance Appearance: Well Developed/Nourished Dysmorphic Features: No Hygiene: Normal Grooming: Fairly Well Kept - Behavior Psychomotor Activities: Normal Exhibits Abnormal Movement: No - Attitude and Relatedness Attitude and Relatedness: Well Related Eye Contact: Good - Speech Quality: Unpressured Latencies: Normal Quantity: Appropriate - Mood Patient's Decription of Mood: "Anxious" - Affect Observed Affect: Fair Affect Consistent with: Euthymia - Thought Process Patient's Thought Process: Coherent, Goal Directed Thought Content: No Passive Wish, No Suicidal Planning, No Homicidal Ideation, No Paranoid Ideation - Sensorium Experiencing Hallucinations: Yes Type of Hallucinations: Visual: No, Auditory: No, Command: No - Level of Consciousness Level of Consciousness: Alert Orientation: Yes Intact, Yes Orientated to Time, Yes Orientated to Place, Yes Orientated to Person - Impulse Control Impulse Control: Intact - Insight and Judgement Insight and Judgement: Fair - Group Participation Particating in Group Activities: Yes - Medication Management Medication Management Adherence: Yes Treatment Course & Assessment Clinical Course & Impression: Kevyn Leonard is a 55-year-old, white male with history significant for head trauma and putative bipolar disorder who has been abusing drugs and presented to the hospital in acute alcohol withdrawal, reporting suicidal ideation. He has been medically cleared through detox from substances on the medical floor. He voices sustained remission of suicidality and denies any other active psychiatric symptoms. He seeks transfer to incarceration that he must undergo as part of his drug court obligations and is hopeful that he can move on from there to recover his job with [employer] in [place], although he is concerned that drug court may not permit this. He also has some concerns about his finances, for example some losses on his credit card or bank card that he needs to investigate. His only physical complaint at this time is feeling tired. We will monitor his mental status to ensure sustained remission of SI and plan toward discharge into custody of drug court per his wishes. Day 2: Kevyn reports continued anxiety and low mood. He is agreeable to discharge to drug court thursday. He is med and meal and group compliant. Day 3: Kevyn reports fair mood and sustained remission of SI. Day 4: Kevyn is cleared for discharge. He reports sustained remission of SI. He is anxious but optimistic about his future going through and past [facility] for drug court. He is assessed as at no acutely increased risk of harm to self or others and capable of adequate self-care to avoid harm. Inpatient DSM-IV Dx: 1. Substance-induced mood disorder. 2. Opiate use disorder. 3. Cocaine use disorder. 4. Alcohol use disorder. 5. Bipolar disorder by history. - Bradford II MR and Personality Disorder: deferred - Bradford III Medical Illness: Hypertension - Bradford IV Stressors: disrupted social and vocational structure due to relapse to substances Family: ex- has been supportive Primary Support Group: ex-, friends at work - Bradford V DQN-Hcsdgs-Ecdsy: 65 Estimate of Highest-Past Year: 75 Discharge Planning - Discharge Planning Medications: Amlodipine Besylate (Norvasc Tab*) 10 mg PO DAILY [facility] Last Admin: 09/14/16 08:34 Dose: 10 mg Atenolol (Tenormin Tab*) 25 mg PO DAILY [facility] Last Admin: 09/14/16 08:33 Dose: 25 mg Folic Acid (Folvite Tab*) 1 mg PO DAILY [facility] Last Admin: 09/14/16 08:34 Dose: 1 mg Hydroxyzine HCl (Atarax Tab*) 25 mg PO Q4H PRN PRN Reason: ANXIETY Last Admin: 09/14/16 13:27 Dose: 25 mg Lisinopril (Prinivil Tab*) 10 mg PO DAILY [facility] Last Admin: 09/14/16 08:34 Dose: 10 mg Kevyn refuses nicotine replacement as he intends to resume smoking after he leaves [facility]. Sertraline HCl (Zoloft*) 50 mg PO DAILY [facility] Last Admin: 09/14/16 08:34 Dose: 50 mg Thiamine HCl (Vitamin B-1 Tab*) 100 mg PO DAILY [facility] Last Admin: 09/14/16 08:34 Dose: 100 mg Trazodone HCl (Desyrel Tab*) 25 mg PO BEDTIME PRN PRN Reason: SLEEP Last Admin: 09/13/16 20:49 Dose: 25 mg Discharge Planning: Prescriptions provided for discharge [] Yes [] No Follow up care details as per social work arrangements. Patient response to discharge plan: [] eager for discharge [] agreeable with discharge plan [] ambivalent about discharge [] disagrees with discharge today
[2016-09-14] MEDS ORDERED: hydrOXYzine HCL TAB* 25 MG PO ONE (14:01)
== END 2016-09-14 14:15 | DRG 773 ==
LOC: BSU 12:58
PROVIDERS: ADMIT Psychiatry & Neurology Psychiatry; ATTEND Psychiatry & Neurology Psychiatry
PROC: GZHZZZZ Group Psychotherapy (ICD-10-PCS; principal; 2016-09-10)
DX: F19.14 Other psychoactive substance abuse with psychoactive substance-induced mood disorder (principal); F11.10 Opioid abuse, uncomplicated; I10 Essential (primary) hypertension; F31.9 Bipolar disorder, unspecified; Z87.820 Personal history of traumatic brain injury; F10.20 Alcohol dependence, uncomplicated; Y90.3 Blood alcohol level of 60-79 mg/100 ml
CPT/HCPCS: 90853; 99222; 99231; 99238; A9270-GY

== ENCOUNTER 2018-08-23 13:34 | Emergency (ER) | payer OTHER ==
[2018-08-23] MEDS ORDERED: Nicotine Inhaler* 10 MG AMP INH PRN (14:03)
[2018-08-23] MEDS ORDERED: ALPRAZolam TAB* 0.5 MG PO ONE (14:04)
[2018-08-23] MEDS ORDERED: Buprenorp/Nalox 8-2 MG FILM 1 EACH SL FILM ONE (14:04)
[2018-08-23] MEDS ORDERED: Mouth Piece, Nicotine* 1 EACH CARTRIDGE INH PRN (14:08)
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
[2018-08-23 14:41] LABS: ABS Basophils 0.1 10^3/ul (0-0.2); ABS Eosinophils 0.3 10^3/ul (0-0.6); ABS Lymphocytes 1.9 10^3/ul (1.0-4.8); ABS Monocytes 0.6 10^3/ul (0-0.8); ABS Neutrophils 4.4 10^3/ul (1.5-7.7); ABS Nucleated RBC 0 10^3/ul; Eosinophil % 3.8 %; Hematocrit 46 % (36-46); Hemoglobin 15.5 g/dL (14.0-18.0); Lymphocyte % 25.8 %; Mean Corpuscular HGB Conc 34 g/dL (31-36); Mean Corpuscular Hemoglobin 30 pg (27-31); Mean Corpuscular Volume 90 fL (80-94); Nucleated Red Blood Cells % 0.1; Platelet Count 268 10^3/uL (150-450); Red Cell Distribution Width 14 % (10.5-15); White Blood Count 7.3 10^3/uL (3.5-10.8)
[2018-08-23 14:59] LABS: ALT 22 U/L (7-52); AST 25 U/L (13-39); Albumin/Globulin Ratio 1.5 (1-3); Alkaline Phosphatase 81 U/L (34-104); Anion Gap 10 mmol/L (2-11); BUN/Creatinine Ratio 14.3 (8-20); Blood Urea Nitrogen 8 mg/dL (6-24); CO2 Carbon Dioxide 27 mmol/L (22-32); Chloride 103 mmol/L (101-111); EGFR African American 183.3 (>60); EGFR Non-African American 151.5 (>60); Globulin 2.7 g/dL (2-4); Glucose 151 mg/dL (70-100); Potassium 3.6 mmol/L (3.5-5.0); Sodium 140 mmol/L (135-145); Total Protein 6.7 g/dL (6.4-8.9)
[2018-08-23 15:12] LABS: Urine Appearance Clear; Urine Bilirubin Negative (Negative); Urine Blood Negative (Negative); Urine Color Straw; Urine Glucose Negative (Negative); Urine Ketones Negative (Negative); Urine Nitrite Negative (Negative); Urine Protein Negative (Negative); Urine Specific Gravity 1.004 (1.010-1.030); Urine Urobilinogen Negative (Negative)
[2018-08-23 15:28] LABS: Barbiturates Urine Screen None Detected (None Detect); Benzodiazepine Urine Screen None Detected (None Detect); Urine Cannabinoids Screen Presumptive Positive (None Detect)
[2018-08-23 15:53] VITALS: BP 131/82
[2018-08-23 15:59] LABS: TSH (Thyroid Stimulating Horm) 0.44 mcIU/mL (0.34-5.60)
[2018-08-23 16:21] LABS: Acetaminophen < 15 mcg/mL; Alcohol 318 mg/dL (<10); Salicylate < 2.50 mg/dL (<30)
== END 2018-08-23 15:52 | disposition home or self-care (01) ==
LOC: ED 13:34
DX: F10.20 Alcohol dependence, uncomplicated (principal); F11.23 Opioid dependence with withdrawal; I10 Essential (primary) hypertension; F41.9 Anxiety disorder, unspecified; F32.9 Major depressive disorder, single episode, unspecified
CPT/HCPCS: 36415; 80053; 80307; 80320; 80329; 81003; 84443; 85025; 99282; A9270-GY; G0480

== ENCOUNTER 2019-01-10 11:28 | Emergency (ER) | payer OTHER ==
[2019-01-10 11:38] VITALS: BP 159/122
[2019-01-10] MEDS ORDERED: LORazepam INJ* 2 MG/ML 1 ML VIAL IV PUSH ONE (11:44)
[2019-01-10] MEDS ORDERED: Lorazepam PYXIS KEY PRN (11:44)
[2019-01-10] MEDS ORDERED: NS 0.9% 1000 ML** 1,000 ML IV SCH (11:45)
[2019-01-10] MEDS ORDERED: Lorazepam PYXIS KEY ONE (11:56)
--- NOTE | 2019-01-10 11:57 | UC ---
General HPI - HPI Summary HPI Summary: 3 DAYS AGO PATIENT STOPPED TAKING HIS SUBOXONE. AT THE SAME TIME STOPPED ALCOHOL "COLD TURKEY " ALTHOUGH LATER IN QUESTIONING ADMITS TO HAVING A COUPLE OF BEERS OVER THE WEEKEND TO TRY AND STAVE OFF HIS WITHDRAWAL SYMPTOMS BUT IT DID NOT HELP. PATIENT IS TEARFUL AND TREMULOUS. HE IS COMPLAINING OF CHEST PAIN AND ADMITS TO FEELINGS OF SELF-HARM. - History of Current Complaint Chief Complaint: UCAlteredMentalStatus Stated Complaint: ALCOHOL AND DRUG WITHDRAWAL Time Seen by Provider: 01/10/19 11:36 Hx Obtained From: Patient Onset/Duration: Gradual Onset, Lasting Days, Still Present Timing: Constant Onset Severity: Moderate Current Severity: Severe Pain Intensity: 10 Associated Signs & Symptoms: Positive: Chest Pain - Allergy/Home Medications Allergies/Adverse Reactions: Allergies Allergy/AdvReac Type Severity Reaction Status Date / Time No Known Allergies Allergy Verified 01/10/19 11:38 PMH/Surg Hx/FS Hx/Imm Hx Psychological History: Anxiety, Depression - Surgical History Surgical History: Yes Surgery Procedure, Year, and Place: neck muscle surgeries, right shoulder 1995 - Family History Known Family History: Positive: Unknown - Patient is adopted. - Social History Alcohol Use: Daily Alcohol Amount: 20 beers/day Substance Use Type: Cocaine, Marijuana, Prescribed Substance Use Comment - Amount & Last Used: suboxone Smoking Status (MU): Current Every Day Smoker Type: Cigarettes, Smokeless Tobacco Amount Used/How Often: 1 PPD Have You Smoked in the Last Year: Yes - states hesmoked a cig when outside with family on Thursday while hospitalized Household Exposure Type: Cigarettes - Immunization History Most Recent Influenza Vaccination: has not received Most Recent Tetanus Shot: n/a Most Recent Pneumonia Vaccination: has not received Review of Systems All Other Systems Reviewed And Are Negative: Yes Constitutional: Positive: Negative Skin: Positive: Negative Respiratory: Positive: Negative Cardiovascular: Positive: Chest Pain Gastrointestinal: Positive: Negative Physical Exam Triage Information Reviewed: Yes Appearance: Well-Nourished, Other: - TREMULOUS, ANXIOUS, EMOTIONALLY LABILE Vital Signs: Initial Vital Signs Temp 98.8 F 01/10/19 11:34 Pulse 108 01/10/19 11:34 Resp 18 01/10/19 11:34 BP 159/122 01/10/19 11:34 Pulse Ox 98 01/10/19 11:34 Vital Signs Reviewed: Yes Eyes: Positive: Conjunctiva Clear ENT: Positive: Hearing grossly normal Neck: Positive: Supple Respiratory: Positive: No respiratory distress, No accessory muscle use Cardiovascular: Positive: RRR, Pulses Normal Abdomen Description: Positive: Soft Musculoskeletal: Positive: No Edema Neurological: Positive: Alert Psychological: Positive: Other: - EMOTIONALLY LABILE, TEARFUL, ANXIOUS Skin: Negative: Rashes Course/Dx - Course Course Of Treatment: PIV PLACED, SLOW INFUSION OF IV FLUIDS STARTED IN THE UC. 2 MG ATIVAN ADMINISTERED BY RN. TO [facility]. - Diagnoses Provider Diagnosis: Substance withdrawal - Physician Notifications Discussed Patient Care With: Js Sharp - TO [facility] Time Discussed With Above Provider: 11:55 Instructed by Provider To: MD Will See In ED Discharge - Sign-Out/Discharge Documenting (check all that apply): Patient Departure All imaging exams completed and their final reports reviewed: No Studies - Discharge Plan Condition: Guarded Disposition: TRANS HIGHER LVL OF CARE FAC Referrals: Albina Moreno MD [Primary Care Provider] - - Billing Disposition and Condition Condition: GUARDED Disposition: Trans Higher Lvl of Care Fac
[2019-01-10] MEDS ORDERED: Ondansetron INJ* 2 MG/ML VIAL IV ONE (12:06)
== END 2019-01-10 12:26 | disposition short-term general hospital (02) ==
LOC: UCEAST 11:28
DX: F19.939 Other psychoactive substance use, unspecified with withdrawal, unspecified (principal); F10.10 Alcohol abuse, uncomplicated; F17.290 Nicotine dependence, other tobacco product, uncomplicated; F41.9 Anxiety disorder, unspecified; F32.9 Major depressive disorder, single episode, unspecified
CPT/HCPCS: 93005; 96361; 96374; 96375; 99214; G0463; J2060; J2405

== ENCOUNTER 2019-01-10 12:56 | Emergency (ER) | payer OTHER ==
--- NOTE | 2019-01-10 13:18 | ED ---
Substance Abuse/Use - HPI Summary HPI Summary: This patient is a 58 year old M presenting to [facility] by EMS with a chief complaint of withdrawal from suboxone since 01/07/19. Pt was trying to wean himself off suboxone, due to its side effect of affecting his sexual performance. Pt has been taking suboxone for the past year and a half for knee pain management. Pt goes to [facility]. After going cold turkey off suboxone he started to feel unwell, anxious and began to drink alcohol again. Pt was a recovering alcoholic. He had not drank alcohol for a couple months before this relapse. Pt last drank yesterday (01/09/19). - History Of Current Complaint Chief Complaint: EDSubstanceAbuse Stated Complaint: WITHDRAWAL PER PT Time Seen by Provider: 01/10/19 13:12 Hx Obtained From: Patient Onset/Duration of Drug/ETOH Abuse: Days Ingestion History: Type/Name Of Drug - EtOH Timing Of Abuse: Binge Use, Recent Cessation For A Period Of Character: Anxious Aggravating Factor(s): Medication Non-compliance Related Hx: Drug/Alcohol Last Used @ - 01/09/19 - Allergies/Home Medications Allergies/Adverse Reactions: Allergies Allergy/AdvReac Type Severity Reaction Status Date / Time No Known Allergies Allergy Verified 01/10/19 11:38 Home Medications: Home Medications Bupropion XL* [Wellbutrin XL *] 150 mg PO DAILY 01/10/19 [History Confirmed ] Nicotine PATCH 21 MG/24 HR* 21 mg TRANSDERM DAILY 01/10/19 [History Confirmed ] PMH/Surg Hx/FS Hx/Imm Hx Endocrine/Hematology History: Denies: Hx Diabetes Cardiovascular History: Reports: Hx Hypercholesterolemia, Hx Hypertension Denies: Hx Pacemaker/ICD History: Denies: Hx Renal Disease Musculoskeletal History: Reports: Other Musculoskeletal History - Bilateral Knee Pain Sensory History: Reports: Hx Contacts or Glasses Denies: Hx Hearing Aid Opthamlomology History: Reports: Hx Contacts or Glasses Neurological History: Reports: Hx Seizures - reports hx of "withdrawal seizures " last one 1 1/2 yrs ago Psychiatric History: Reports: Hx Anxiety, Hx Depression, Hx Panic Disorder - ANXIETY, Hx Substance Abuse Denies: Hx Eating Disorder, Hx of Violent Episodes Against Others - Surgical History Surgery Procedure, Year, and Place: neck muscle surgeries, right shoulder 1995 - Immunization History Date of Tetanus Vaccine: unknown Date of Influenza Vaccine: unk Infectious Disease History: No Infectious Disease History: Denies: Traveled Outside the [place] in Last 30 Days - Family History Known Family History: Positive: Unknown - Patient is adopted. - Social History Alcohol Use: Daily Alcohol Amount: 20 beers/day Substance Use Type: Reports: Cocaine, Marijuana, Prescribed Substance Use Comment - Amount & Last Used: suboxone Smoking Status (MU): Current Every Day Smoker Type: Cigarettes, Smokeless Tobacco Amount Used/How Often: 1 PPD Have You Smoked in the Last Year: Yes - states hesmoked a cig when outside with family on Thursday while hospitalized Review of Systems Negative: Fever Positive: Anxious All Other Systems Reviewed And Are Negative: Yes Physical Exam - Summary Physical Exam Summary: Appearance: The patient is well-nourished in no acute distress and in no acute pain. Pt is diaphoretic and agitated. Skin: The skin is warm and dry and skin color reflects adequate perfusion. HEENT: The head is normocephalic and atraumatic. The pupils are equal and reactive. The conjunctivae are clear and without drainage. Nares are patent and without drainage. Mouth reveals moist mucous membranes and the throat is without erythema and exudate. The external ears are intact. The ear canals are patent and without drainage. The tympanic membranes are intact. Neck: The neck is supple with full range of motion and non-tender. There are no carotid bruits. There is no neck vein distension. Respiratory: Chest is non-tender. Lungs are clear to auscultation and breath sounds are symmetrical and equal. Cardiovascular: Heart is regular rate and rhythm. There is no murmur or rub auscultated. There is no peripheral edema and pulses are symmetrical and equal. Abdomen: The abdomen is soft and non-tender. There are normal bowel sounds heard in all four quadrants and there is no organomegaly palpated. Musculoskeletal: There is no back tenderness noted. Extremities are non-tender with full range of motion. There is good capillary refill. There is no peripheral edema or calf tenderness elicited. Neurological: Patient is alert and oriented to person, place and time. The patient has symmetrical motor strength in all four extremities. Cranial nerves are grossly intact. Deep tendon reflexes are symmetrical and equal in all four extremities. Psychiatric: The patient has an appropriate affect and does not exhibit any anxiety or depression Triage Information Reviewed: Yes Vital Signs On Initial Exam: Initial Vitals Temp Pulse Resp BP Pulse Ox 98.8 F 76 20 170/113 99 01/10/19 12:58 01/10/19 12:58 01/10/19 12:58 01/10/19 12:58 01/10/19 12:58 Vital Signs Reviewed: Yes Diagnostics - Vital Signs Vital Signs Temp Pulse Resp BP Pulse Ox 01/10/19 12:58 98.8 F 76 20 170/113 99 - Laboratory Lab Statement: Any lab studies that have been ordered have been reviewed, and results considered in the medical decision making process. Re-Evaluation - Re-Evaluation First Eval Re-Evaluation Time: 15:25 Comment: Pt feels improved. Course/Dx - Course Course Of Treatment: Mr. Leonard presented in opioid withdrawal and feeling shaky from drinking too much alcohol last night. He wanted to get off of all of his medications that he gets at [facility] because he has been having erectile dysfunction. Random work with Dr. King he decided to stop them all abruptly and now he regrets that. He is willing to be restarted on Suboxone to follow with her on Thursday at [facility]. After dose of Ativan and Suboxone and he is feeling much improved and I will discharge him with a short prescription of Suboxone to get him through till Thursday. He may have trouble filling it but it is a different formulation. - Diagnoses Provider Diagnoses: Acute opioid withdrawal Discharge - Sign-Out/Discharge Documenting (check all that apply): Patient Departure - Discharge Patient Received Moderate/Deep Sedation with Procedure: No - Discharge Plan Condition: Stable Disposition: HOME Prescriptions: Buprenorp/Nalox 8-2 MG FILM [Suboxone 8 mg-2 mg Sl Film] 1 each SL BID #4 film MDD 2 LORazepam TAB(*) [Ativan TAB(*)] 1 mg PO Q6H PRN #5 tab MDD 4 PRN Reason: Pain Patient Education Materials: Opioid Withdrawal (ED) Referrals: Albina Moreno MD [Primary Care Provider] - Additional Instructions: Follow up with Dr Parker at [facility] on 01/12/19. RETURN TO THE ED FOR ANY NEW OR WORSENING SYMPTOMS. - Billing Disposition and Condition Condition: STABLE Disposition: Home - Attestation Statements Document Initiated by Scribe: Yes Documenting Scribe: Sharmin Moreland Provider For Whom Katharineibe is Documenting (Include Credential): Dr. Js Sharp MD Scribe Attestation: I, alex Farahed for Dr. Js Sharp MD on 01/10/19 at 1735. Scribe Documentation Reviewed: Yes Provider Attestation: The documentation as recorded by the katharineibe, Sharmin Moreland accurately reflects the service I personally performed and the decisions made by me, Dr. Js Sharp MD Status of Scribe Document: Viewed
[2019-01-10] MEDS ORDERED: Buprenorp/Nalox 8-2 MG FILM SL FILM ONE (13:21)
[2019-01-10] MEDS ORDERED: Lorazepam PYXIS KEY PRN (14:03)
[2019-01-10] MEDS ORDERED: LORazepam INJ* 2 MG/ML 1 ML VIAL IV ONE (14:03)
[2019-01-10] MEDS ORDERED: Lorazepam PYXIS KEY ONE (14:15)
[2019-01-10 16:01] VITALS: BP 182/112
== END 2019-01-10 16:01 | disposition home or self-care (01) ==
LOC: ED 12:56
DX: F11.23 Opioid dependence with withdrawal (principal); E78.00 Pure hypercholesterolemia, unspecified; I10 Essential (primary) hypertension; F41.9 Anxiety disorder, unspecified; F32.9 Major depressive disorder, single episode, unspecified; F17.210 Nicotine dependence, cigarettes, uncomplicated; Z79.899 Other long term (current) drug therapy
CPT/HCPCS: 96374; 99282; A9270-GY; J2060

== ENCOUNTER 2019-07-27 21:37 | Inpatient (IN) | payer OTHER ==
[2019-07-27] MEDS ORDERED: Thiamine INJ* 100 MG/ML 2 ML VIAL IM ONE (21:56)
[2019-07-27 22:15] LABS: ABS Basophils 0.1 10^3/ul (0-0.2); ABS Eosinophils 0.1 10^3/ul (0-0.6); ABS Lymphocytes 1.7 10^3/ul (1.0-4.8); ABS Monocytes 0.5 10^3/ul (0-0.8); ABS Neutrophils 3.6 10^3/ul (1.5-7.7); Hematocrit 48 % (42-52); Hemoglobin 16.4 g/dL (14.0-18.0); Lymphocyte % 28.3 %; Mean Corpuscular HGB Conc 34 g/dL (31-36); Mean Corpuscular Hemoglobin 31 pg (27-31); Mean Corpuscular Volume 90 fL (80-94); Nucleated Red Blood Cells % 0.1; Platelet Count 164 10^3/uL (150-450); Red Cell Distribution Width 15 % (10-15); White Blood Count 5.9 10^3/uL (3.5-10.8)
[2019-07-27] MEDS ORDERED: LORazepam INJ* 2 MG/ML 1 ML VIAL IV PUSH ONE (22:17)
[2019-07-27] MEDS ORDERED: Lorazepam PYXIS KEY PRN (22:17)
[2019-07-27] MEDS ORDERED: NS 0.9% 1000 ML** 1,000 ML IV ONE (22:17)
[2019-07-27 22:34] LABS: ALT 50 U/L (7-52); AST 50 U/L (13-39); Albumin 4.2 g/dL (3.2-5.2); Albumin/Globulin Ratio 1.5 (1-3); Alkaline Phosphatase 89 U/L (34-104); Anion Gap 11 mmol/L (2-11); BUN/Creatinine Ratio 11.4 (8-20); Blood Urea Nitrogen 8 mg/dL (6-24); CO2 Carbon Dioxide 26 mmol/L (22-32); Calcium 9.2 mg/dL (8.6-10.3); Chloride 98 mmol/L (101-111); EGFR African American 141.2 (>60); EGFR Non-African American 116.7 (>60); Globulin 2.8 g/dL (2-4); Glucose 113 mg/dL (70-100); Potassium 3.7 mmol/L (3.5-5.0); Sodium 135 mmol/L (135-145)
[2019-07-27] MEDS ORDERED: Lorazepam PYXIS KEY ONE (22:34)
[2019-07-27 22:54] LABS: Acetaminophen < 15 mcg/mL; Alcohol 218 mg/dL (<10); Salicylate < 2.50 mg/dL (<30)
[2019-07-27 23:08] LABS: TSH (Thyroid Stimulating Horm) 1.01 mcIU/mL (0.34-5.60)
--- NOTE | 2019-07-27 23:13 | ED ---
Psychiatric Complaint - HPI Summary HPI Summary: Patient is a 58 y/o M presenting to [facility] with a chief complaint of suicidal ideation today with alcohol and substance abuse over the last month. He states previous behavioral issues, but over the last month he has been consuming large amounts of alcohol and drugs daily, causing him to feel fatigued and unable to do anything. Prior to this past month, he has been sober for a year. He hasnt eaten in a few days, and he has not taken his medications in several days other than prescribed Suboxone. He states body tremors and diaphoresis feeling like the beginning of withdrawal. He notes that his ex- told him that "she is done with him," so he had to wait all day for a friend to bring him in tonight. PMHx: HTN, HLD, anxiety, depression, seizures. Current smoker, daily EtOH, prescribed marijuana use, cocaine use. Medications reviewed. Allergies noted. - History Of Current Complaint Chief Complaint: EDMentalHealth Time Seen by Provider: 07/27/19 21:54 Hx Obtained From: Patient Onset/Duration: Gradual Onset, Lasting Days, Still Present, Worse Since - today Severity Currently: Severe Character: Depressed Aggravating Factor(s): Alcohol Use, Drug Use Alleviating Factor(s): Nothing Associated Signs And Symptoms: Positive: Appetite Change Related History: Positive For: Prior Psychiatric Issues Has Suicidal: Reports: Thoughts Ingestion History: Type/Name Of Drug - alcohol, marijuana, cocaine - Allergies/Home Medications Allergies/Adverse Reactions: Allergies Allergy/AdvReac Type Severity Reaction Status Date / Time No Known Allergies Allergy Verified 01/10/19 11:38 Home Medications: Home Medications Lisinopril TAB* [Prinivil TAB 10 MG*] 40 mg PO DAILY 03/29/18 [History Confirmed 07/27/19] Metoprolol Succinate XL TAB* [Toprol XL TAB*] 50 mg PO DAILY 03/29/18 [History Confirmed 07/27/19] amLODIPine TAB* [Norvasc 5 mg TAB*] 5 mg PO DAILY 03/29/18 [History Confirmed ] Escitalopram * [Lexapro 20 mg (NF)] 20 mg PO DAILY 08/23/18 [History Confirmed 07/27/19] Simvastatin [Zocor 5 MG-] 5 mg PO DAILY 08/23/18 [History Confirmed 07/27/19] Tamsulosin CAP* [Flomax CAP*] 0.4 mg PO DAILY 08/23/18 [History Confirmed ] Buprenorp/Nalox 8-2 MG FILM [Suboxone 8 mg-2 mg Sl Film] 1 each SL BID #4 film MDD 2 01/10/19 [Rx Confirmed 07/27/19] Bupropion XL* [Wellbutrin XL *] 150 mg PO DAILY 01/10/19 [History Confirmed 09/11] PMH/Surg Hx/FS Hx/Imm Hx Endocrine/Hematology History: Denies: Hx Diabetes Cardiovascular History: Reports: Hx Hypercholesterolemia, Hx Hypertension Denies: Hx Pacemaker/ICD History: Denies: Hx Renal Disease Musculoskeletal History: Reports: Other Musculoskeletal History - Bilateral Knee Pain Sensory History: Reports: Hx Contacts or Glasses Denies: Hx Hearing Aid Opthamlomology History: Reports: Hx Contacts or Glasses Neurological History: Reports: Hx Seizures - reports hx of "withdrawal seizures " last one 1 1/2 yrs ago Psychiatric History: Reports: Hx Anxiety, Hx Depression, Hx Panic Disorder - ANXIETY, Hx Substance Abuse Denies: Hx Eating Disorder, Hx of Violent Episodes Against Others - Surgical History Surgical History: Yes Surgery Procedure, Year, and Place: neck muscle surgeries, right shoulder 1995 - Immunization History Date of Tetanus Vaccine: unknown Date of Influenza Vaccine: unk Infectious Disease History: No Infectious Disease History: Denies: Traveled Outside the [place] in Last 30 Days - Family History Known Family History: Positive: Unknown - Patient is adopted. - Social History Alcohol Use: Daily Alcohol Amount: 20 beers/day Hx Substance Use: Yes Substance Use Type: Reports: Cocaine, Marijuana, Prescribed Substance Use Comment - Amount & Last Used: suboxone Hx Tobacco Use: Yes Smoking Status (MU): Current Every Day Smoker Type: Cigarettes, Smokeless Tobacco Amount Used/How Often: 1 PPD Have You Smoked in the Last Year: Yes - states hesmoked a cig when outside with family on Thursday while hospitalized - Additional Comments History Additional Comments: HTN, HLD, anxiety, depression, seizures, alcohol abuse, marijuana and cocaine use Review of Systems - ROS Summary Review of Systems Summary: Home Medications Medication Instructions Recorded Confirmed Type Lisinopril TAB* [Prinivil TAB 10 40 mg PO DAILY 03/29/18 07/27/19 History MG*] Metoprolol Succinate XL TAB* 50 mg PO DAILY 03/29/18 07/27/19 History [Toprol XL TAB*] amLODIPine TAB* [Norvasc 5 mg TAB*] 5 mg PO DAILY 03/29/18 07/27/19 History Escitalopram * [Lexapro 20 mg (NF)] 20 mg PO DAILY 08/23/18 07/27/19 History Simvastatin [Zocor 5 MG-] 5 mg PO DAILY 08/23/18 07/27/19 History Tamsulosin CAP* [Flomax CAP*] 0.4 mg PO DAILY 08/23/18 07/27/19 History Buprenorp/Nalox 8-2 MG FILM 1 each SL BID #4 film MDD 2 01/10/19 07/27/19 Rx [Suboxone 8 mg-2 mg Sl Film] Bupropion XL* [Wellbutrin XL *] 150 mg PO DAILY 01/10/19 07/27/19 History Positive: Fatigue, Skin Diaphoresis, Other - body tremors Positive: Other - decreased PO intake Psychological: Other - alcohol intoxication, SI All Other Systems Reviewed And Are Negative: Yes Physical Exam - Summary Physical Exam Summary: General: Well-developed, Obese male. Obviously intoxicated. Unkempt. No acute distress. HEENT: Normocephalic, Atraumatic. Eyes: Conjuctiva normal, PERRL. Oropharynx: Clear, mucous membranes moist, (-) exudates. Neck: Soft, FROM, (-) lymphadenopathy, (-) thyromegaly, (-) JVD. Cardiovascular: Normal sinus rhythm, (-) murmur. Lungs: Clear to auscultation bilaterally (-) wheezes, (-) rales, (-) rhonchi. Abdomen: Soft, non-tender, non-distended, (-) organomegaly, normal bowel sounds. Back: (-) CVA tenderness Extremities: Trace bilateral lower extremity edema. Skin: Warm, dry, (-) rash. Neuro: Alert and oriented x3, moves all extremities equally. No ataxia. No gait disturbance. No sensory deficit. Normal strength, normal sensation. Psychiatric: Mood normal, affect normal. Slurring words from obvious intoxication. Triage Information Reviewed: Yes Vital Signs On Initial Exam: Initial Vitals Temp Pulse Resp BP Pulse Ox 98.8 F 121 20 143/107 96 07/27/19 21:39 07/27/19 21:39 07/27/19 21:39 07/27/19 21:39 07/27/19 21:39 Vital Signs Reviewed: Yes Procedures - Sedation Patient Received Moderate/Deep Sedation with Procedure: No Diagnostics - Vital Signs Vital Signs Temp Pulse Resp BP Pulse Ox 07/27/19 22:50 20 07/27/19 21:39 98.8 F 121 20 143/107 96 - Laboratory Lab Results: Lab Results 07/27/19 07/27/19 Range/Units 22:07 22:07 WBC 5.9 (3.5-10.8) 10^3/uL RBC 5.30 (4.18-5.48) 10^6 /uL Hgb 16.4 (14.0-18.0) g/dL Hct 48 (42-52) % MCV 90 (80-94) fL MCH 31 (27-31) pg MCHC 34 (31-36) g/dL RDW 15 (10-15) % Plt Count 164 (150-450) 10^3/uL MPV 8.0 (7.4-10.4) fL Neut % (Auto) 60.5 % Lymph % (Auto) 28.3 % [place] % (Auto) 8.1 % Eos % (Auto) 2.0 % Baso % (Auto) 1.1 % Absolute Neuts (auto) 3.6 (1.5-7.7) 10^3/ul Absolute Lymphs (auto) 1.7 (1.0-4.8) 10^3/ul Absolute Monos (auto) 0.5 (0-0.8) 10^3/ul Absolute Eos (auto) 0.1 (0-0.6) 10^3/ul Absolute Basos (auto) 0.1 (0-0.2) 10^3/ul Absolute Nucleated RBC 0.0 10^3/ul Nucleated RBC % 0.1 Sodium 135 (135-145) mmol/L Potassium 3.7 (3.5-5.0) mmol/L Chloride 98 L (101-111) mmol/L Carbon Dioxide 26 (22-32) mmol/L Anion Gap 11 (2-11) mmol/L BUN 8 (6-24) mg/dL Creatinine 0.70 (0.67-1.17) mg/dL Est GFR ( Amer) 141.2 (>60) Est GFR (Non-Af Amer) 116.7 (>60) BUN/Creatinine Ratio 11.4 (8-20) Glucose 113 H (70-100) mg/dL Calcium 9.2 (8.6-10.3) mg/dL Total Bilirubin 0.60 (0.2-1.0) mg/dL AST 50 H (13-39) U/L ALT 50 (7-52) U/L Alkaline Phosphatase 89 (34-104) U/L Total Protein 7.0 (6.4-8.9) g/dL Albumin 4.2 (3.2-5.2) g/dL Globulin 2.8 (2-4) g/dL Albumin/Globulin Ratio 1.5 (1-3) TSH Pending Salicylates < 2.50 (<30) mg/dL Acetaminophen < 15 mcg/mL Serum Alcohol 218 H (<10) mg/dL Result Diagrams: 07/27/19 22:07 07/27/19 22:07 Lab Statement: Any lab studies that have been ordered have been reviewed, and results considered in the medical decision making process. Course/Dx - Course Course Of Treatment: 58 year-old male presents for suicidal ideation and acute alcohol intoxication. Patient with known drug and alcohol addiction. States he was sober for a year before banner for one month. States he hasnt eaten in days. He hasnt taken medications for a week except Suboxone and prescribed marijuana. States he just doesnt want to live anymore. His ex- told him this morning that she is done with him. He waited for a friend today to bring him to the hospital tonight. He is obviously intoxicated upon physical exam. There are no signs or symptoms of trauma. Workup demonstrates blood alcohol of 218. Patient tolerated PO food and drink. Initially was given Ativan IV for anxiety. Shortly thereafter, patient started exhibiting signs of withdrawal. Requests more Ativan and Suboxone. Urine tox not available at this time. Referred to hospitalist for admission for alcohol withdrawal. - Differential Dx/Clinical Impression Provider Diagnosis: Tobacco use, Acute alcohol intoxication, Alcohol withdrawal - Physician Notifications Discussed Care Of Patient With: Parmjit Alva - hospitalist Time Discussed With Above Provider: 01:45 Instructed by Provider To: Other - I discussed the patients case with Dr. Alva, who accepts the patient for admission. Discharge ED - Sign-Out/Discharge Documenting (check all that apply): Patient Departure - admit - Discharge Plan Condition: Stable Disposition: ADMITTED TO [facility] Referrals: Albina Moreno MD [Primary Care Provider] - - Attestation Statements Document Initiated by Scribe: Yes Documenting Scribe: Anel March Provider For Whom Scribe is Documenting (Include Credential): Marlene Muro MD Scribe Attestation: Anel Cuenca, scribed for Marlene Muro MD on 07/28/19 at 0356. Status of Scribe Document: Ready
[2019-07-28] MEDS ORDERED: NS 0.9% 1000 ML** 1,000 ML IV SCH (03:30)
[2019-07-28 04:19] LABS: Urine Appearance Clear; Urine Bacteria Absent (Absent); Urine Bilirubin Negative (Negative); Urine Blood Negative (Negative); Urine Color Yellow; Urine Glucose Negative (Negative); Urine Ketones Negative (Negative); Urine Nitrite Negative (Negative); Urine Protein Negative (Negative); Urine Red Blood Cell Absent (Absent); Urine Specific Gravity 1.006 (1.010-1.030); Urine Urobilinogen Negative (Negative); Urine White Blood Cell Trace(0-5/hpf) (Absent)
[2019-07-28 04:20] LABS: Urine Benzodiazepine Screen None Detected (None Detect); Urine Opiates Screen None Detected (None Detect)
[2019-07-28] MEDS ORDERED: Acetaminophen TAB* 325 MG PO PRN (05:20)
[2019-07-28] MEDS ORDERED: LORazepam INJ* 2 MG/ML 1 ML VIAL IV PUSH STA (06:16)
[2019-07-28] MEDS ORDERED: Lorazepam PYXIS KEY PRN ×3 (06:16→23:25)
[2019-07-28] MEDS: Multivitamins/Minerals TAB PO SCH ×2 (06:22→09:34)
[2019-07-28] MEDS ORDERED: Escitalopram * 10 MG TAB PO SCH (09:00)
[2019-07-28] MEDS ORDERED: Metoprolol Succinate XL TAB* 50 MG PO SCH (09:00)
[2019-07-28] MEDS ORDERED: Lisinopril TAB* 10 MG PO SCH (09:00)
[2019-07-28] MEDS ORDERED: amLODIPine TAB* 5 MG PO SCH (09:00)
[2019-07-28] MEDS ORDERED: Buprenorp/Nalox 8-2 MG FILM SL FILM SCH (09:00)
--- NOTE | 2019-07-28 09:19 | PN ---
Subjective Date of Service: 07/28/19 Interval History: Pt currently denies any SI or HI. He was taken off of 1:1 safety precautions this morning by . States that he is feeling tremulous with some abdominal discomfort. But that his discomfort has improved slightly since taking morning suboxone. Appears mildly anxious but pleasant and cooperative with care. Spoke about restarting usual medications with the addition of nicotine replacement as well as ativan for seizure prophylaxis as well as [facility] protocol. He states he has had a headache on and off this morning, feels nauseous, last emesis was in the ER. Currently denies CP, SOB, diarrhea, unusual numbness/tingling. Objective Active Medications: Acetaminophen (Tylenol Tab*) 650 mg PO Q4H PRN PRN Reason: PAIN Amlodipine Besylate (Norvasc Tab*) 5 mg PO DAILY [facility] Buprenorphine/Naloxone (Suboxone 8 Mg-2 Mg Sl Film) 1 each SL FILM BID [facility] Bupropion HCl (Wellbutrin Xl *) 150 mg PO DAILY [facility] Escitalopram Oxalate (Lexapro *) 20 mg PO DAILY [facility] Folic Acid (Folvite Tab*) 1 mg PO DAILY [facility] Sodium Chloride (Ns 0.9% 1000 Ml) 1,000 mls @ 100 mls/hr IV PER RATE [facility] Stop: 07/28/19 13:29 Last Admin: 07/28/19 06:31 Dose: 100 mls/hr Lisinopril (Prinivil Tab*) 40 mg PO DAILY [facility] Lorazepam (Ativan Tab(*)) 0 - 6 mg PO .PER [facility] PROTOCOL [facility]; Protocol Lorazepam (Ativan Tab(*)) 2 mg PO Q8H [facility]; Taper Stop: 07/31/19 05:59 Metoprolol Succinate (Toprol Xl Tab*) 50 mg PO DAILY [facility] Miscellaneous (Ativan Pyxis Lara) 1 ea N/A .ATIVAN IV LARA PRN PRN Reason: PYXIS LARA Multivitamins/Minerals (Theragran/Minerals Tab*) 1 tab PO DAILY [facility] Last Admin: 07/28/19 06:22 Dose: Not Given Nicotine (Nicotine Patch 21 Mg/24 Hr*) 1 patch TRANSDERM DAILY@0800 [facility] Nicotine Polacrilex (Nicotine Gum*) 4 mg PO Q2H PRN PRN Reason: CRAVING Pharmacy Profile Note (Nicotine Patch Removal Note*) 1 note FOLLOW UP 2100 [facility] Simvastatin (Zocor(Nf)) 5 mg PO DAILY [facility] Tamsulosin HCl (Flomax Cap*) 0.4 mg PO DAILY [facility] Thiamine HCl (Vitamin B-1 Tab*) 100 mg PO DAILY [facility] Vital Signs - 8 hr 07/28/19 07/28/19 07/28/19 04:55 05:05 06:26 Temperature 99.6 F 98.4 F Pulse Rate 96 93 Respiratory 16 20 22 Rate Blood Pressure 147/95 158/98 (mmHg) O2 Sat by Pulse 97 96 Oximetry 07/28/19 07/28/19 07/28/19 06:35 07:28 07:45 Temperature 98.2 F Pulse Rate 75 Respiratory 22 20 20 Rate Blood Pressure 151/87 (mmHg) O2 Sat by Pulse 96 Oximetry Oxygen Devices in Use Now: None Appearance: laying down in bed, appears mildly anxious, slightly tremulous Eyes: No Scleral Icterus, PERRLA, - - EOMI with excessive blinking and squinting but normal ocular movement without nystagmus Ears/Nose/Mouth/Throat: Clear Oropharnyx Respiratory: Symmetrical Chest Expansion and Respiratory Effort - inspiratory wheeze with expiratory rhonchi throughout L lung and RUL, clear but diminished to RML, diminished with quiet expiratory rhonchi to RLL Cardiovascular: RRR Abdominal: NL Sounds; No Tenderness; No Distention Extremities: No Edema Neurological: Alert and Oriented x 3, NL Muscle Strength and Tone Nutrition: Taking PO's - lacks appetite this morning for breakfast but did order normal lunch with dietary Result Diagrams: 07/27/19 22:07 07/27/19 22:07 Additional Lab and Data: Lab Results 07/27/19 07/27/19 Range/Units 22:07 22:07 WBC 5.9 (3.5-10.8) 10^3/uL RBC 5.30 (4.18-5.48) 10^6 /uL Hgb 16.4 (14.0-18.0) g/dL Hct 48 (42-52) % MCV 90 (80-94) fL MCH 31 (27-31) pg MCHC 34 (31-36) g/dL RDW 15 (10-15) % Plt Count 164 (150-450) 10^3/uL MPV 8.0 (7.4-10.4) fL Neut % (Auto) 60.5 % Lymph % (Auto) 28.3 % [place] % (Auto) 8.1 % Eos % (Auto) 2.0 % Baso % (Auto) 1.1 % Absolute Neuts (auto) 3.6 (1.5-7.7) 10^3/ul Absolute Lymphs (auto) 1.7 (1.0-4.8) 10^3/ul Absolute Monos (auto) 0.5 (0-0.8) 10^3/ul Absolute Eos (auto) 0.1 (0-0.6) 10^3/ul Absolute Basos (auto) 0.1 (0-0.2) 10^3/ul Absolute Nucleated RBC 0.0 10^3/ul Nucleated RBC % 0.1 Sodium 135 (135-145) mmol/L Potassium 3.7 (3.5-5.0) mmol/L Chloride 98 L (101-111) mmol/L Carbon Dioxide 26 (22-32) mmol/L Anion Gap 11 (2-11) mmol/L BUN 8 (6-24) mg/dL Creatinine 0.70 (0.67-1.17) mg/dL Est GFR ( Amer) 141.2 (>60) Est GFR (Non-Af Amer) 116.7 (>60) BUN/Creatinine Ratio 11.4 (8-20) Glucose 113 H (70-100) mg/dL Calcium 9.2 (8.6-10.3) mg/dL Total Bilirubin 0.60 (0.2-1.0) mg/dL AST 50 H (13-39) U/L ALT 50 (7-52) U/L Alkaline Phosphatase 89 (34-104) U/L Total Protein 7.0 (6.4-8.9) g/dL Albumin 4.2 (3.2-5.2) g/dL Globulin 2.8 (2-4) g/dL Albumin/Globulin Ratio 1.5 (1-3) TSH Pending Salicylates < 2.50 (<30) mg/dL Acetaminophen < 15 mcg/mL Serum Alcohol 218 H (<10) mg/dL Assess/Plan/Problems-Billing Assessment: is a 58yo male with pmhx significant for etoh and substance abuse , HTN, hyperlipidemia, anxiety, depression, and seizures. He presented to the ED on 07/26 intoxicated and with c/o SI. He was later removed from suicide prevention precautions. - Patient Problems (1) Alcohol withdrawal Current Visit: No Status: Acute Code(s): F10.239 - ALCOHOL DEPENDENCE WITH WITHDRAWAL, UNSPECIFIED SNOMED Code(s): 666002215 Comment: Admits to etoh abuse over the past month, had multiple ED visits in 12/2018 r/t detox requests as well as being escorted to the ED via police for what sounds like public intoxication. Feeling tremulous and nauseous with mild headache. Hx seizure disorder. Last WAM score 10 - WAM protocol with ativan prn - ativan PO scheduled taper for seizure prophylaxis - multivitamin, folic acid and thiamin added to med regimen - social work consult (2) Substance abuse Current Visit: Yes Status: Acute Code(s): F19.10 - OTHER PSYCHOACTIVE SUBSTANCE ABUSE, UNCOMPLICATED SNOMED Code(s): 22006210 Comment: admits to using etoh and cocaine excessively over the last month, as well as prescribed marijuanna, hx substance abuse, states he is a member of the [employer] program - continue suboxone - social work consult (3) Seizure disorder Current Visit: Yes Status: Acute Code(s): G40.909 - EPILEPSY, UNSP, NOT INTRACTABLE, WITHOUT STATUS EPILEPTICUS SNOMED Code(s): 984909343 Comment: Not on home medications for seizure disorder - ativan PO scheduled taper dosing for seizure prophylaxis in relation to withdraw - seizure precautions (4) Suicidal ideation Current Visit: Yes Status: Acute Code(s): R45.851 - SUICIDAL IDEATIONS SNOMED Code(s): 5992305 Comment: Currently denies, no longer on precautions - psych eval submitted - continue to monitor (5) Hyperlipidemia Current Visit: Yes Status: Acute Code(s): E78.5 - HYPERLIPIDEMIA, UNSPECIFIED SNOMED Code(s): 93251434 Comment: - resume statin therapy (6) Anxiety Current Visit: No Status: Acute Code(s): F41.9 - ANXIETY DISORDER, UNSPECIFIED SNOMED Code(s): 64918136 Comment: - continue lexapro and wellbutrin (7) HTN (hypertension) Current Visit: No Status: Acute Code(s): I10 - ESSENTIAL (PRIMARY) HYPERTENSION SNOMED Code(s): 28352688 Comment: BPs stable but slightly elevated - resume usual amlodipine and metoprolol dosage (8) SIRS (systemic inflammatory response syndrome) Current Visit: Yes Status: Acute Code(s): R65.10 - SIRS OF NON-INFECTIOUS ORIGIN W/O ACUTE ORGAN DYSFUNCTION SNOMED Code(s): 310010622 Comment: Meets SIRS criteria at times with slightly elevated HR and RR, however the pt has no signs of infection at this time, this is likely related to the fact that he is withdrawing from etoh and has not been taking his usual medications which includes a BB (9) Full code status Current Visit: No Status: Acute Code(s): Z78.9 - OTHER SPECIFIED HEALTH STATUS SNOMED Code(s): 824891018 (10) DVT prophylaxis Current Visit: No Status: Acute Code(s): PUX4818 - SNOMED Code(s): 758969987 Comment: - lovenox sq Status and Disposition: status: improving disposition: 4N Attending: Sadiq Jonas
[2019-07-28] MEDS: Nicotine PATCH 21 MG/24 HR* PATCH TRANSDERM SCH ×2 (09:30→21:04)
[2019-07-28] MEDS: CMCS:Simvastatin TAB(NF) 10 MG TAB PO SCH (09:30)
[2019-07-28] MEDS: LORazepam TAB(*) 1 MG PO SCH ×8 (09:31→20:48)
[2019-07-28] MEDS: Buprenorp/Nalox 8-2 MG FILM SL FILM SCH ×2 (09:33→21:04)
[2019-07-28] MEDS: Metoprolol Succinate XL TAB* 50 MG PO SCH (09:34)
[2019-07-28] MEDS: Lisinopril TAB* 10 MG PO SCH (09:34)
[2019-07-28] MEDS: Escitalopram * 20 MG TABLET PO SCH (09:35)
[2019-07-28] MEDS: BuPROPion XL* 150 MG TAB.XL PO SCH (09:35)
[2019-07-28] MEDS: Thiamine TAB* 100 MG TAB PO SCH (09:35)
[2019-07-28] MEDS: Tamsulosin CAP* 0.4 MG PO SCH (09:36)
[2019-07-28] MEDS: Folic Acid TAB* 1 MG PO SCH (09:36)
[2019-07-28] MEDS: amLODIPine TAB* 5 MG PO SCH (09:36)
[2019-07-28] MEDS: Enoxaparin(*) 40 MG/0.4 ML SYR SUBCUT SCH (11:27)
[2019-07-28] MEDS: Nicotine* 4MG (FRUIT FLAVOR) GUM PO PRN (17:52)
[2019-07-28] MEDS ORDERED: LORazepam INJ* 2 MG/ML 1 ML VIAL IV PUSH ONE (20:58)
[2019-07-28] MEDS: Nicotine Patch Removal NOTE FOLLOW UP SCH (21:11)
[2019-07-28] MEDS ORDERED: LORazepam PO 0-6 for WAM protocol PO SCH (22:00)
[2019-07-28] MEDS ORDERED: LORazepam IV 0-3 mg for WAM protocol IV PUSH SCH (22:00)
[2019-07-28] MEDS ORDERED: PHENobarbital SODIUM(*) 65 MG/ML VIAL IV ONE (22:24)
[2019-07-28] MEDS ORDERED: PHENobarbital SODIUM(*) 65 MG/ML VIAL ONE (22:30)
[2019-07-28] MEDS ORDERED: Lorazepam PYXIS KEY ONE (23:15)
[2019-07-28] MEDS: LORazepam INJ* 2 MG/ML 1 ML VIAL IV PUSH SCH (23:19)
[2019-07-29] MEDS: LORazepam TAB(*) 1 MG PO SCH ×3 (01:00→19:42)
[2019-07-29] MEDS: LORazepam INJ* 2 MG/ML 1 ML VIAL IV PUSH SCH ×6 (03:12→22:18)
[2019-07-29 05:49] LABS: ABS Eosinophils 0.2 10^3/ul (0-0.6); ABS Lymphocytes 1.2 10^3/ul (1.0-4.8); ABS Monocytes 0.3 10^3/ul (0-0.8); ABS Neutrophils 2.9 10^3/ul (1.5-7.7); Eosinophil % 3.4 %; Hematocrit 43 % (42-52); Hemoglobin 14.7 g/dL (14.0-18.0); Lymphocyte % 26.6 %; Mean Corpuscular HGB Conc 34 g/dL (31-36); Mean Corpuscular Hemoglobin 31 pg (27-31); Mean Corpuscular Volume 89 fL (80-94); Mean Platelet Volume 8.8 fL (7.4-10.4); Platelet Count 120 10^3/uL (150-450); Red Blood Count 4.81 10^6 /uL (4.18-5.48); Red Cell Distribution Width 15 % (10-15); White Blood Count 4.6 10^3/uL (3.5-10.8)
[2019-07-29 06:05] LABS: BUN/Creatinine Ratio 15.3 (8-20); Calcium 9.2 mg/dL (8.6-10.3); EGFR African American 136.6 (>60); EGFR Non-African American 112.9 (>60); Magnesium 1.8 mg/dL (1.9-2.7); Potassium 3.7 mmol/L (3.5-5.0)
[2019-07-29] MEDS ORDERED: Magnesium Oxide TAB* 400 MG PO ONE (07:52)
[2019-07-29] MEDS: Tamsulosin CAP* 0.4 MG PO SCH (09:41)
[2019-07-29] MEDS: Lisinopril TAB* 10 MG PO SCH (09:41)
[2019-07-29] MEDS: CMCS:Simvastatin TAB(NF) 10 MG TAB PO SCH (09:42)
[2019-07-29] MEDS: Folic Acid TAB* 1 MG PO SCH (09:42)
[2019-07-29] MEDS: Buprenorp/Nalox 8-2 MG FILM SL FILM SCH ×2 (09:42→20:25)
[2019-07-29] MEDS: amLODIPine TAB* 5 MG PO SCH (09:42)
[2019-07-29] MEDS: Metoprolol Succinate XL TAB* 50 MG PO SCH (09:42)
[2019-07-29] MEDS: Thiamine TAB* 100 MG TAB PO SCH (09:43)
[2019-07-29] MEDS: Multivitamins/Minerals TAB PO SCH (09:43)
[2019-07-29] MEDS: BuPROPion XL* 150 MG TAB.XL PO SCH (09:43)
[2019-07-29] MEDS: Escitalopram * 20 MG TABLET PO SCH (09:43)
[2019-07-29] MEDS: Nicotine PATCH 21 MG/24 HR* PATCH TRANSDERM SCH (09:44)
[2019-07-29] MEDS: Enoxaparin(*) 40 MG/0.4 ML SYR SUBCUT SCH (11:08)
--- NOTE | 2019-07-29 16:03 | PN ---
Subjective Date of Service: 07/29/19 Interval History: Laying in bed, tired, NAD. Cooperative but disoriented at times. Able to carry on conversation but unable to recall certain recent events such as getting medications. States that he is feeling better than he was. Requested shower. Appears less tremulous than yesterday. Currently denies any PATEL, CP, SOB, abdominal discomfort, difficulty urinating, numbness/tingling, fever, chills. Safety monitor in place per nursing as pt had an episode last night of wanting to leave and becoming uncooperative, per nursing note he urinated in a garbage can in the hallway at one point. Pt does not remember his behavior last night but says he feels embarrassed about the way he has been acting. Objective Active Medications: Acetaminophen (Tylenol Tab*) 650 mg PO Q4H PRN PRN Reason: PAIN Last Admin: 07/28/19 21:05 Dose: 650 mg Amlodipine Besylate (Norvasc Tab*) 5 mg PO DAILY [facility] Last Admin: 07/29/19 09:42 Dose: 5 mg Buprenorphine/Naloxone (Suboxone 8 Mg-2 Mg Sl Film) 1 each SL FILM BID [facility] Last Admin: 07/29/19 09:42 Dose: 1 each Bupropion HCl (Wellbutrin Xl *) 150 mg PO DAILY [facility] Last Admin: 07/29/19 09:43 Dose: 150 mg Enoxaparin Sodium (Lovenox(*)) 40 mg SUBCUT Q24H [facility] Last Admin: 07/29/19 11:08 Dose: 40 mg Escitalopram Oxalate (Lexapro *) 20 mg PO DAILY [facility] Last Admin: 07/29/19 09:43 Dose: 20 mg Folic Acid (Folvite Tab*) 1 mg PO DAILY [facility] Last Admin: 07/29/19 09:42 Dose: 1 mg Lisinopril (Prinivil Tab*) 40 mg PO DAILY [facility] Last Admin: 07/29/19 09:41 Dose: 40 mg Lorazepam (Ativan Tab(*)) 2 mg PO Q12H [facility]; Taper Stop: 07/31/19 05:59 Last Admin: 07/29/19 13:33 Dose: 2 mg Lorazepam (Ativan Inj*) 0 - 3 mg IV PUSH .PER [facility] PROTOCOL [facility]; Protocol Last Admin: 07/29/19 05:15 Dose: 2 mg Metoprolol Succinate (Toprol Xl Tab*) 50 mg PO DAILY [facility] Last Admin: 07/29/19 09:42 Dose: 50 mg Miscellaneous (Ativan Pyxis Lara) 1 ea N/A .PYXIS LARA PRN PRN Reason: PER PROTOCOL Multivitamins/Minerals (Theragran/Minerals Tab*) 1 tab PO DAILY [facility] Last Admin: 07/29/19 09:43 Dose: 1 tab Nicotine (Nicotine Patch 21 Mg/24 Hr*) 1 patch TRANSDERM DAILY@0800 [facility] Last Admin: 07/29/19 09:44 Dose: 1 patch Nicotine Polacrilex (Nicotine Gum*) 4 mg PO Q2H PRN PRN Reason: CRAVING Last Admin: 07/28/19 17:52 Dose: 4 mg Pharmacy Profile Note (Nicotine Patch Removal Note*) 1 note FOLLOW UP 2100 [facility] Last Admin: 07/28/19 21:11 Dose: Not Given Simvastatin (Zocor(Nf)) 5 mg PO DAILY [facility] Last Admin: 07/29/19 09:42 Dose: 5 mg Tamsulosin HCl (Flomax Cap*) 0.4 mg PO DAILY [facility] Last Admin: 07/29/19 09:41 Dose: 0.4 mg Thiamine HCl (Vitamin B-1 Tab*) 100 mg PO DAILY [facility] Last Admin: 07/29/19 09:43 Dose: 100 mg Vital Signs - 8 hr 07/29/19 07/29/19 07/29/19 09:00 11:08 13:15 Temperature 98.4 F 97.6 F Pulse Rate 82 75 Respiratory 16 14 14 Rate Blood Pressure 152/92 147/116 (mmHg) O2 Sat by Pulse 97 97 Oximetry 07/29/19 07/29/19 13:33 15:00 Temperature 98.2 F Pulse Rate 67 Respiratory 20 14 Rate Blood Pressure 146/94 (mmHg) O2 Sat by Pulse 98 Oximetry Oxygen Devices in Use Now: None Appearance: laying in bed, NAD Eyes: No Scleral Icterus Ears/Nose/Mouth/Throat: Clear Oropharnyx, Mucous Membranes Moist Respiratory: Symmetrical Chest Expansion and Respiratory Effort, Clear to Auscultation Cardiovascular: RRR Abdominal: NL Sounds; No Tenderness; No Distention Extremities: No Edema Neurological: Alert and Oriented x 3 - with disorientation at times Nutrition: Taking PO's Result Diagrams: 07/29/19 05:28 07/29/19 05:28 Additional Lab and Data: Lab Results 07/27/19 07/27/19 Range/Units 22:07 22:07 WBC 5.9 (3.5-10.8) 10^3/uL RBC 5.30 (4.18-5.48) 10^6 /uL Hgb 16.4 (14.0-18.0) g/dL Hct 48 (42-52) % MCV 90 (80-94) fL MCH 31 (27-31) pg MCHC 34 (31-36) g/dL RDW 15 (10-15) % Plt Count 164 (150-450) 10^3/uL MPV 8.0 (7.4-10.4) fL Neut % (Auto) 60.5 % Lymph % (Auto) 28.3 % [place] % (Auto) 8.1 % Eos % (Auto) 2.0 % Baso % (Auto) 1.1 % Absolute Neuts (auto) 3.6 (1.5-7.7) 10^3/ul Absolute Lymphs (auto) 1.7 (1.0-4.8) 10^3/ul Absolute Monos (auto) 0.5 (0-0.8) 10^3/ul Absolute Eos (auto) 0.1 (0-0.6) 10^3/ul Absolute Basos (auto) 0.1 (0-0.2) 10^3/ul Absolute Nucleated RBC 0.0 10^3/ul Nucleated RBC % 0.1 Sodium 135 (135-145) mmol/L Potassium 3.7 (3.5-5.0) mmol/L Chloride 98 L (101-111) mmol/L Carbon Dioxide 26 (22-32) mmol/L Anion Gap 11 (2-11) mmol/L BUN 8 (6-24) mg/dL Creatinine 0.70 (0.67-1.17) mg/dL Est GFR ( Amer) 141.2 (>60) Est GFR (Non-Af Amer) 116.7 (>60) BUN/Creatinine Ratio 11.4 (8-20) Glucose 113 H (70-100) mg/dL Calcium 9.2 (8.6-10.3) mg/dL Total Bilirubin 0.60 (0.2-1.0) mg/dL AST 50 H (13-39) U/L ALT 50 (7-52) U/L Alkaline Phosphatase 89 (34-104) U/L Total Protein 7.0 (6.4-8.9) g/dL Albumin 4.2 (3.2-5.2) g/dL Globulin 2.8 (2-4) g/dL Albumin/Globulin Ratio 1.5 (1-3) TSH Pending Salicylates < 2.50 (<30) mg/dL Acetaminophen < 15 mcg/mL Serum Alcohol 218 H (<10) mg/dL Microbiology and Other Data: Microbiology 07/28/19 01:10 Urine Culture - Final Urine No Growth (<1,000 CFU/mL) Assess/Plan/Problems-Billing Assessment: is a 58yo male with pmhx significant for etoh and substance abuse , HTN, hyperlipidemia, anxiety, depression, and seizures. He presented to the ED on 07/26 intoxicated and with c/o SI. He was later removed from suicide prevention precautions. - Patient Problems (1) Alcohol withdrawal Current Visit: No Status: Acute Code(s): F10.239 - ALCOHOL DEPENDENCE WITH WITHDRAWAL, UNSPECIFIED SNOMED Code(s): 727531774 Comment: Admits to etoh abuse over the past month, had multiple ED visits in 12/2018 r/t detox requests as well as being escorted to the ED via police for what sounds like public intoxication. Feeling better than yesterday. Appears less tremulous. Hx seizure disorder. Last WAM score 9. Has become more agitated this evening. - WAM protocol with ativan prn - ativan PO scheduled -hold for sedation - for better symptomatic control - multivitamin, folic acid and thiamin added to med regimen - social work consult - continue safety precautions as necessary (2) Substance abuse Current Visit: Yes Status: Acute Code(s): F19.10 - OTHER PSYCHOACTIVE SUBSTANCE ABUSE, UNCOMPLICATED SNOMED Code(s): 24710659 Comment: admits to using etoh and cocaine over the last month, as well as prescribed marijuanna, hx substance abuse, states he is a member of the [employer] program - continue suboxone - social work consult (3) Seizure disorder Current Visit: Yes Status: Acute Code(s): G40.909 - EPILEPSY, UNSP, NOT INTRACTABLE, WITHOUT STATUS EPILEPTICUS SNOMED Code(s): 584331664 Comment: Not on home medications for seizure disorder - ativan PO scheduled taper dosing for seizure prophylaxis in relation to withdraw - seizure precautions (4) Suicidal ideation Current Visit: Yes Status: Acute Code(s): R45.851 - SUICIDAL IDEATIONS SNOMED Code(s): 4378507 Comment: Currently denies, no longer on precautions. Psych was unable to do a full consult on him today as he was reported to be too sleepy for interview, consult note started. - psych eval submitted, will try again tomorrow - continue to monitor (5) Hyperlipidemia Current Visit: Yes Status: Acute Code(s): E78.5 - HYPERLIPIDEMIA, UNSPECIFIED SNOMED Code(s): 38183058 Comment: - resume statin therapy (6) Anxiety Current Visit: No Status: Acute Code(s): F41.9 - ANXIETY DISORDER, UNSPECIFIED SNOMED Code(s): 72795029 Comment: - continue lexapro and wellbutrin (7) HTN (hypertension) Current Visit: No Status: Acute Code(s): I10 - ESSENTIAL (PRIMARY) HYPERTENSION SNOMED Code(s): 89257525 Comment: BPs stable but slightly elevated at times - continue usual amlodipine and metoprolol dosage (8) SIRS (systemic inflammatory response syndrome) Current Visit: Yes Status: Acute Code(s): R65.10 - SIRS OF NON-INFECTIOUS ORIGIN W/O ACUTE ORGAN DYSFUNCTION SNOMED Code(s): 781062801 Comment: Was meeting SIRS criteria at times with slightly elevated HR and RR , however the pt has no signs of infection, this is likely related to the fact that he is withdrawing from etoh and has not been taking his usual medications which includes a BB. No elevations since 07/27 (9) Full code status Current Visit: No Status: Acute Code(s): Z78.9 - OTHER SPECIFIED HEALTH STATUS SNOMED Code(s): 762315419 (10) DVT prophylaxis Current Visit: No Status: Acute Code(s): [id number] - SNOMED Code(s): 494949896 Comment: - lovenox sq Status and Disposition: status: improving disposition: 4N
--- NOTE | 2019-07-29 17:44 | CONSULT ---
Identification - Patient Identification Reason for Psychiatric Consultation: Suicidal Ideation, Incapacitating Symptoms , Other - alcohol dependence -: Patient is a 58 year old, M admitted on 07/28/19. - MHU Identification Employment Status: Unemployed Hx Psychiatric Hospitalization: Yes - [facility] [place] [facility] History - Objective HPI: Patient admitted to medical floor due to presented to ED with c/o suicidal ideation and alcohol abuse. He reported to ED staff that he had been sober for a year until "going on a flores" for a month. He reported stopping all medicatiosn with the exception of prescribed suboxone and medical marijuana. According to [facility], he was last prescribed suboxone through [facility] in the end of May. Patient is sleeping but easy to rouse. Upon being awakened, he was disoriented and tremulous. Throughout the interview, patient was intermittently oriented and falling asleep during conversation. Prior to him falling asleep multiple times, he was pleasant. He reports he is eager to start at [employer] in [place] on Thursday. He states he was working elsewhere off/on for 9 years. 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 From previous [facility], patient is known to have a significant history of polysubstance abuse and legal consequences. He has a history of suicidal threats while intoxicated. In 2017, he had reported sobriety for 14 months until receiving a Rx for vicodin due to L forearm fracture sustained on the job. Within a week, he progressed to binge drinking and intranasal heroin and cocaine. I spoke with patient's ex-, Zari. She states his substance use is a "chronic, long-standing condition." She states they have been for some time but she cares about him and is aware of his whereabouts through their daughter. She states he called her and said "I'm gonna " therefore she phoned the police. She states his apartment is in "awful" condition and that he is not caring for himself. Exam Appearance: Thin Framed Hygiene: Dirty Grooming: Disheveled Psychomotor Activities: Abnormal-Increased - tremulous Exhibits Abnormal Movement: Yes Attitude and Relatedness: Guarded Eye Contact: Poor - Speech Quality: Pressured Latencies: Long Quantity: Copious Patient's Decription of Mood: "Terrible" Observed Affect: Expansive Patient's Thought Process: Disorganized, Impoverished Thought Content: Yes Passive Wish, Yes Suicidal Planning, No Homicidal Ideation, No Paranoid Ideation Experiencing Hallucinations: No, Sensorium is Clear Level of Consciousness: Lethargic Orientation: Yes Orientated to Person, No Intact, No Orientated to Time, No Orientated to Place Impulse Control: Impaired Insight and Judgement: Impaired Impression - Impression Clinical Impression: 58yo wm with significant polysubstance use, who presented to ED self-referred due to suicidal ideation and alcohol dependence. He is actively withdrawing from alcohol, is delirious and unable to participate in evaluation. Plan - Treatment Plan Treatment Plan: Reassess for psychiatric symptoms and consider transfer to [facility] when medically stabilized. Psychiatry to continue to follow. Medications: Current Medications Acetaminophen (Tylenol Tab*) 650 mg PO Q4H PRN PRN Reason: PAIN Last Admin: 07/28/19 21:05 Dose: 650 mg Amlodipine Besylate (Norvasc Tab*) 5 mg PO DAILY [facility] Last Admin: 07/29/19 09:42 Dose: 5 mg Buprenorphine/Naloxone (Suboxone 8 Mg-2 Mg Sl Film) 1 each SL FILM BID [facility] Last Admin: 07/29/19 09:42 Dose: 1 each Bupropion HCl (Wellbutrin Xl *) 150 mg PO DAILY [facility] Last Admin: 07/29/19 09:43 Dose: 150 mg Enoxaparin Sodium (Lovenox(*)) 40 mg SUBCUT Q24H [facility] Last Admin: 07/29/19 11:08 Dose: 40 mg Escitalopram Oxalate (Lexapro *) 20 mg PO DAILY [facility] Last Admin: 07/29/19 09:43 Dose: 20 mg Folic Acid (Folvite Tab*) 1 mg PO DAILY [facility] Last Admin: 07/29/19 09:42 Dose: 1 mg Lisinopril (Prinivil Tab*) 40 mg PO DAILY [facility] Last Admin: 07/29/19 09:41 Dose: 40 mg Lorazepam (Ativan Tab(*)) 2 mg PO Q12H [facility]; Taper Stop: 07/31/19 05:59 Last Admin: 07/29/19 13:33 Dose: 2 mg Lorazepam (Ativan Inj*) 0 - 3 mg IV PUSH .PER [facility] PROTOCOL [facility]; Protocol Last Admin: 07/29/19 16:29 Dose: 2 mg Metoprolol Succinate (Toprol Xl Tab*) 50 mg PO DAILY [facility] Last Admin: 07/29/19 09:42 Dose: 50 mg Miscellaneous (Ativan Pyxis Lara) 1 ea N/A .PYXIS LARA PRN PRN Reason: PER PROTOCOL Multivitamins/Minerals (Theragran/Minerals Tab*) 1 tab PO DAILY [facility] Last Admin: 07/29/19 09:43 Dose: 1 tab Nicotine (Nicotine Patch 21 Mg/24 Hr*) 1 patch TRANSDERM DAILY@0800 [facility] Last Admin: 07/29/19 09:44 Dose: 1 patch Nicotine Polacrilex (Nicotine Gum*) 4 mg PO Q2H PRN PRN Reason: CRAVING Last Admin: 07/28/19 17:52 Dose: 4 mg Pharmacy Profile Note (Nicotine Patch Removal Note*) 1 note FOLLOW UP 2100 [facility] Last Admin: 07/28/19 21:11 Dose: Not Given Simvastatin (Zocor(Nf)) 5 mg PO DAILY [facility] Last Admin: 07/29/19 09:42 Dose: 5 mg Tamsulosin HCl (Flomax Cap*) 0.4 mg PO DAILY [facility] Last Admin: 07/29/19 09:41 Dose: 0.4 mg Thiamine HCl (Vitamin B-1 Tab*) 100 mg PO DAILY [facility] Last Admin: 07/29/19 09:43 Dose: 100 mg
[2019-07-29] MEDS ORDERED: Haloperidol INJ IV/IM* 5 MG/ML AMP IM PRN (18:07)
[2019-07-29] MEDS: Nicotine* 4MG (FRUIT FLAVOR) GUM PO PRN (19:43)
[2019-07-29] MEDS: Nicotine Patch Removal NOTE FOLLOW UP SCH (20:22)
[2019-07-30] MEDS: LORazepam INJ* 2 MG/ML 1 ML VIAL IV PUSH SCH ×2 (00:42→18:35)
[2019-07-30] MEDS: Nicotine* 4MG (FRUIT FLAVOR) GUM PO PRN ×9 (01:04→23:58)
[2019-07-30] MEDS: LORazepam TAB(*) 1 MG PO SCH ×4 (04:10→20:53)
[2019-07-30] MEDS: Lisinopril TAB* 10 MG PO SCH (08:08)
[2019-07-30] MEDS: Metoprolol Succinate XL TAB* 50 MG PO SCH (08:09)
[2019-07-30] MEDS: Multivitamins/Minerals TAB PO SCH (08:09)
[2019-07-30] MEDS: CMCS:Simvastatin TAB(NF) 10 MG TAB PO SCH (08:10)
[2019-07-30] MEDS: BuPROPion XL* 150 MG TAB.XL PO SCH (08:10)
[2019-07-30] MEDS: Folic Acid TAB* 1 MG PO SCH (08:10)
[2019-07-30] MEDS: Thiamine TAB* 100 MG TAB PO SCH (08:10)
[2019-07-30] MEDS: Escitalopram * 20 MG TABLET PO SCH (08:10)
[2019-07-30] MEDS: Tamsulosin CAP* 0.4 MG PO SCH (08:11)
[2019-07-30] MEDS: amLODIPine TAB* 5 MG PO SCH (08:11)
[2019-07-30] MEDS: Nicotine PATCH 21 MG/24 HR* PATCH TRANSDERM SCH ×2 (08:12→10:05)
[2019-07-30] MEDS: Buprenorp/Nalox 8-2 MG FILM SL FILM SCH ×2 (08:12→20:52)
[2019-07-30] MEDS: Enoxaparin(*) 40 MG/0.4 ML SYR SUBCUT SCH (10:06)
--- NOTE | 2019-07-30 13:23 | PN ---
Subjective Date of Service: 07/30/19 Interval History: Pt reports that he feels very tremulous inside. Denies any thoughts of self harm presently and denies any plans for self harm. States that is feeling much better than when he arrived. Pt is alert and oriented x 3. He reports that he is supposed to be starting a new job on Thursday but does not believe he will be able to. Denies any difficulty with urination but reports that he has not had a BM in atleast a week. Denies chest pain, SOB, dizziness, headaches, and hallucinations. Pt also reports that although he has a hx of seizures R/T W/D he has not experienced a seizure since the late . Family History: Findings - Pt adopted in 1962 does not know family hx Social History: Findings - Binge drinks alcohol. pack of cigarettes daily, 1 tin of chewing tobacco daily, denies IV drug use but does cocaine, marijuana, and pain pills. Past Medical History: Findings - HTN, Anxiety, Depression, Right shoulder surgery Objective Active Medications: Acetaminophen (Tylenol Tab*) 650 mg PO Q4H PRN PRN Reason: PAIN Last Admin: 07/28/19 21:05 Dose: 650 mg Amlodipine Besylate (Norvasc Tab*) 5 mg PO DAILY [facility] Last Admin: 07/30/19 08:11 Dose: 5 mg Buprenorphine/Naloxone (Suboxone 8 Mg-2 Mg Sl Film) 1 each SL FILM BID [facility] Last Admin: 07/30/19 08:12 Dose: 1 each Bupropion HCl (Wellbutrin Xl *) 150 mg PO DAILY [facility] Last Admin: 07/30/19 08:10 Dose: 150 mg Enoxaparin Sodium (Lovenox(*)) 40 mg SUBCUT Q24H [facility] Last Admin: 07/30/19 10:06 Dose: 40 mg Escitalopram Oxalate (Lexapro *) 20 mg PO DAILY [facility] Last Admin: 07/30/19 08:10 Dose: 20 mg Folic Acid (Folvite Tab*) 1 mg PO DAILY [facility] Last Admin: 07/30/19 08:10 Dose: 1 mg Haloperidol Lactate (Haldol Inj Iv/Im*) 5 mg IM ONCE PRN PRN Reason: AGITATION Last Admin: 07/29/19 21:24 Dose: 5 mg Lisinopril (Prinivil Tab*) 40 mg PO DAILY [facility] Last Admin: 07/30/19 08:08 Dose: 40 mg Lorazepam (Ativan Inj*) 0 - 3 mg IV PUSH .PER [facility] PROTOCOL [facility]; Protocol Last Admin: 07/30/19 00:42 Dose: 2 mg Lorazepam (Ativan Tab(*)) 2 mg PO Q6H [facility] Last Admin: 07/30/19 08:08 Dose: 2 mg Metoprolol Succinate (Toprol Xl Tab*) 50 mg PO DAILY [facility] Last Admin: 07/30/19 08:09 Dose: 50 mg Miscellaneous (Ativan Pyxis Lara) 1 ea N/A .PYXIS LARA PRN PRN Reason: PER PROTOCOL Multivitamins/Minerals (Theragran/Minerals Tab*) 1 tab PO DAILY [facility] Last Admin: 07/30/19 08:09 Dose: 1 tab Nicotine (Nicotine Patch 21 Mg/24 Hr*) 1 patch TRANSDERM DAILY@0800 [facility] Last Admin: 07/30/19 10:05 Dose: 1 patch Nicotine Polacrilex (Nicotine Gum*) 4 mg PO Q2H PRN PRN Reason: CRAVING Last Admin: 07/30/19 10:05 Dose: 4 mg Pharmacy Profile Note (Nicotine Patch Removal Note*) 1 note FOLLOW UP 2100 [facility] Last Admin: 07/29/19 20:22 Dose: Not Given Simvastatin (Zocor(Nf)) 5 mg PO DAILY [facility] Last Admin: 07/30/19 08:10 Dose: 5 mg Tamsulosin HCl (Flomax Cap*) 0.4 mg PO DAILY [facility] Last Admin: 07/30/19 08:11 Dose: 0.4 mg Thiamine HCl (Vitamin B-1 Tab*) 100 mg PO DAILY [facility] Last Admin: 07/30/19 08:10 Dose: 100 mg Vital Signs - 8 hr 07/30/19 07/30/19 07/30/19 05:59 07:58 08:00 Temperature 98.2 F Pulse Rate 84 80 Respiratory 18 14 14 Rate Blood Pressure 140/90 145/105 (mmHg) O2 Sat by Pulse 99 99 Oximetry 07/30/19 07/30/19 08:08 10:13 Temperature 98.1 F Pulse Rate 72 Respiratory 22 12 Rate Blood Pressure 146/103 (mmHg) O2 Sat by Pulse 96 Oximetry Oxygen Devices in Use Now: None Eyes: No Scleral Icterus, PERRLA Ears/Nose/Mouth/Throat: NL Teeth, Lips, Gums, Clear Oropharnyx, Mucous Membranes Moist Neck: NL Appearance and Movements; NL JVP Respiratory: Symmetrical Chest Expansion and Respiratory Effort, Clear to Auscultation Cardiovascular: NL Sounds; No Murmurs; No JVD, RRR, No Edema Abdominal: NL Sounds; No Tenderness; No Distention, No Hepatosplenomegaly Lymphatic: No Cervical Adenopathy Extremities: No Edema, No Clubbing, Cyanosis Skin: No Rash or Ulcers, No Nodules or Sclerosis Neurological: Alert and Oriented x 3, NL Sensation, NL Gait, NL Muscle Strength and Tone Result Diagrams: 07/29/19 05:28 07/29/19 05:28 Additional Lab and Data: Lab Results 07/27/19 07/27/19 Range/Units 22:07 22:07 WBC 5.9 (3.5-10.8) 10^3/uL RBC 5.30 (4.18-5.48) 10^6 /uL Hgb 16.4 (14.0-18.0) g/dL Hct 48 (42-52) % MCV 90 (80-94) fL MCH 31 (27-31) pg MCHC 34 (31-36) g/dL RDW 15 (10-15) % Plt Count 164 (150-450) 10^3/uL MPV 8.0 (7.4-10.4) fL Neut % (Auto) 60.5 % Lymph % (Auto) 28.3 % [place] % (Auto) 8.1 % Eos % (Auto) 2.0 % Baso % (Auto) 1.1 % Absolute Neuts (auto) 3.6 (1.5-7.7) 10^3/ul Absolute Lymphs (auto) 1.7 (1.0-4.8) 10^3/ul Absolute Monos (auto) 0.5 (0-0.8) 10^3/ul Absolute Eos (auto) 0.1 (0-0.6) 10^3/ul Absolute Basos (auto) 0.1 (0-0.2) 10^3/ul Absolute Nucleated RBC 0.0 10^3/ul Nucleated RBC % 0.1 Sodium 135 (135-145) mmol/L Potassium 3.7 (3.5-5.0) mmol/L Chloride 98 L (101-111) mmol/L Carbon Dioxide 26 (22-32) mmol/L Anion Gap 11 (2-11) mmol/L BUN 8 (6-24) mg/dL Creatinine 0.70 (0.67-1.17) mg/dL Est GFR ( Amer) 141.2 (>60) Est GFR (Non-Af Amer) 116.7 (>60) BUN/Creatinine Ratio 11.4 (8-20) Glucose 113 H (70-100) mg/dL Calcium 9.2 (8.6-10.3) mg/dL Total Bilirubin 0.60 (0.2-1.0) mg/dL AST 50 H (13-39) U/L ALT 50 (7-52) U/L Alkaline Phosphatase 89 (34-104) U/L Total Protein 7.0 (6.4-8.9) g/dL Albumin 4.2 (3.2-5.2) g/dL Globulin 2.8 (2-4) g/dL Albumin/Globulin Ratio 1.5 (1-3) TSH Pending Salicylates < 2.50 (<30) mg/dL Acetaminophen < 15 mcg/mL Serum Alcohol 218 H (<10) mg/dL Microbiology and Other Data: Microbiology 07/28/19 01:10 Urine Culture - Final Urine No Growth (<1,000 CFU/mL) Assess/Plan/Problems-Billing Assessment: is a 58yo male with pmhx significant for etoh and substance abuse , HTN, hyperlipidemia, anxiety, depression, and seizures. He presented to the ED on 3/4 intoxicated and with c/o SI. He was later removed from suicide prevention precautions. - Patient Problems (1) Alcohol withdrawal Current Visit: No Comment: -Pt has significant hx of alcohol abuse. Pt reports he can go a few months without alcohol and then his thoughts get out of control and he drinks to calm them. Presently patient is without any hallucinations, headache, N/V. Tremors are slightly visible. Last WAM score 5 -Seizure precautions in place, pt reports last seizure was in the late R/T alcohol W/D - WAM protocol with ativan prn - ativan PO scheduled -hold for sedation - for better symptomatic control - multivitamin, folic acid and thiamin added to med regimen - social work consult - continue safety precautions as necessary (2) HTN (hypertension) Current Visit: No Status: Acute Code(s): I10 - ESSENTIAL (PRIMARY) HYPERTENSION SNOMED Code(s): 62902871 Comment: Blood pressure elevated - continue Amlodipine, Lisinopril, Metoprolol (3) Substance abuse Current Visit: Yes Comment: admits to using etoh and cocaine over the last month, as well as prescribed marijuanna, hx substance abuse, states he is a member of the [facility] program. -Pt reports that he started drinking back in april and planned to quit as he had a new job coming starting soon. pt reports that his plan to quit at home did not work - continue suboxone - social work consult again (4) Suicidal ideation Current Visit: Yes Comment: Pt denies any thoughts of self harm and has not made any attempts to harm self. Pt has been cooperative today. 1:1 remains outside room at all times. - Will order psychiatric re-evaluation - continue to monitor (5) Anxiety Current Visit: Yes Comment: Presently anxiety is well controlled, pt does not appear to be in any distress. - continue lexapro and wellbutrin (6) Hyperlipidemia Current Visit: Yes Comment: - resume statin therapy (7) DVT prophylaxis Current Visit: No Comment: - lovenox sq (8) Full code status Current Visit: No Status: Acute Code(s): Z78.9 - OTHER SPECIFIED HEALTH STATUS SNOMED Code(s): 407678527 Status and Disposition: status: Stable disposition: 4N
[2019-07-30] MEDS: Magnesium Oxide TAB* 400 MG PO SCH (18:35)
--- NOTE | 2019-07-30 19:44 | CONSULT ---
Consult Consult: REASON FOR CONSULT: Assess for safety or any indication of need for psychiatric admission. SUBJECTIVE HISTORY: Mr Leonard remembered me and thanked me for helping him when he was admitted to the [facility] a few years ago. He reported looking forward to trying to hang on to a job offer at in [place] after discharge. He denied any dangerous intent or plan. He reported feeling restless and anxious, but this is in the context of having had 12 cups of coffee today per report of his nurse Beverly. His nurse knew of no other issues raised than his overconsumption of coffee. He is progressing in his treatment for withdrawal from alcohol, and continues to score on the WAM protocol. He reports having enrolled in [facility] after leaving [facility] and reports benefitting from continued care there up until this recent lapse. PAST PSYCHIATRIC HISTORY: Patient was admitted to the [facility] in August of 2016 for SI brought on by relapse to drugs. SUBSTANCE ABUSE HISTORY: Has a history of diagnoses with opiate, cocaine and alcohol use disorders. Reports having been in treatment at [facility]. MEDICATIONS: Acetaminophen (Tylenol Tab*) 650 mg PO Q4H PRN PRN Reason: PAIN Last Admin: 07/28/19 21:05 Dose: 650 mg Amlodipine Besylate (Norvasc Tab*) 5 mg PO DAILY [facility] Last Admin: 07/30/19 08:11 Dose: 5 mg Buprenorphine/Naloxone (Suboxone 8 Mg-2 Mg Sl Film) 1 each SL FILM BID [facility] Last Admin: 07/30/19 08:12 Dose: 1 each Bupropion HCl (Wellbutrin Xl *) 150 mg PO DAILY [facility] Last Admin: 07/30/19 08:10 Dose: 150 mg Enoxaparin Sodium (Lovenox(*)) 40 mg SUBCUT Q24H [facility] Last Admin: 07/30/19 10:06 Dose: 40 mg Escitalopram Oxalate (Lexapro *) 20 mg PO DAILY [facility] Last Admin: 07/30/19 08:10 Dose: 20 mg Folic Acid (Folvite Tab*) 1 mg PO DAILY [facility] Last Admin: 07/30/19 08:10 Dose: 1 mg Haloperidol Lactate (Haldol Inj Iv/Im*) 5 mg IM ONCE PRN PRN Reason: AGITATION Last Admin: 07/29/19 21:24 Dose: 5 mg Lisinopril (Prinivil Tab*) 40 mg PO DAILY [facility] Last Admin: 07/30/19 08:08 Dose: 40 mg Lorazepam (Ativan Inj*) 0 - 3 mg IV PUSH .PER [facility] PROTOCOL [facility]; Protocol Last Admin: 07/30/19 18:35 Dose: 1.5 mg Lorazepam (Ativan Tab(*)) 2 mg PO Q6H [facility] Last Admin: 07/30/19 13:23 Dose: 2 mg Magnesium Oxide (Magox 400 Tab*) 800 mg PO DAILY [facility] Last Admin: 07/30/19 18:35 Dose: 800 mg Metoprolol Succinate (Toprol Xl Tab*) 50 mg PO DAILY [facility] Last Admin: 07/30/19 08:09 Dose: 50 mg Miscellaneous (Ativan Pyxis Lara) 1 ea N/A .PYXIS LARA PRN PRN Reason: PER PROTOCOL Multivitamins/Minerals (Theragran/Minerals Tab*) 1 tab PO DAILY [facility] Last Admin: 07/30/19 08:09 Dose: 1 tab Nicotine (Nicotine Patch 21 Mg/24 Hr*) 1 patch TRANSDERM DAILY@0800 [facility] Last Admin: 07/30/19 10:05 Dose: 1 patch Nicotine Polacrilex (Nicotine Gum*) 4 mg PO Q2H PRN PRN Reason: CRAVING Last Admin: 07/30/19 19:04 Dose: 4 mg Pharmacy Profile Note (Nicotine Patch Removal Note*) 1 note FOLLOW UP 2100 [facility] Last Admin: 07/29/19 20:22 Dose: Not Given Simvastatin (Zocor(Nf)) 5 mg PO DAILY [facility] Last Admin: 07/30/19 08:10 Dose: 5 mg Tamsulosin HCl (Flomax Cap*) 0.4 mg PO DAILY [facility] Last Admin: 07/30/19 08:11 Dose: 0.4 mg Thiamine HCl (Vitamin B-1 Tab*) 100 mg PO DAILY [facility] Last Admin: 07/30/19 08:10 Dose: 100 mg Allergies No Known Allergies Allergy (Verified 01/10/19 11:38) MENTAL STATUS EXAM: Somewhat overfamiliar and uncomfortably closes conversational space to within inches, makes good eye contact, normal speech and motor patterns. Grooming/hygiene appropriate to hospital setting. Mood/ affect anxious/restless. Denies AH/VH/PI/SI/HI. Fair insight/judgment. Intact impulse control. DIAGNOSES: Alcohol use disorder. Opiate use disorder. Cocaine use disorder. Caffeine use disorder. IMPRESSION: Mr Leonard reported SI in the ED. Today he reports feeling safe and with no plan to harm himself or others. He I future-oriented toward pursuing employment at [employer]. I will meet with him again tomorrow to reassess his thoughts about suicide and his future, but at this time his report is that he is safe with no need for inpatient psychiatric care. RECOMMENDATIONS TO PRIMARY TEAM: Continue medical care for detox. Refer to treatment for substance abuse issues. Thank you for the consult.
[2019-07-30] MEDS: Nicotine Patch Removal NOTE FOLLOW UP SCH (19:48)
[2019-07-31] MEDS: LORazepam INJ* 2 MG/ML 1 ML VIAL IV PUSH SCH ×6 (00:14→20:30)
[2019-07-31] MEDS: LORazepam TAB(*) 1 MG PO SCH ×2 (01:46→07:27)
[2019-07-31] MEDS: Nicotine* 4MG (FRUIT FLAVOR) GUM PO PRN ×8 (03:52→21:19)
[2019-07-31] MEDS: Folic Acid TAB* 1 MG PO SCH (07:24)
[2019-07-31] MEDS: Thiamine TAB* 100 MG TAB PO SCH (07:24)
[2019-07-31] MEDS: Multivitamins/Minerals TAB PO SCH (07:24)
[2019-07-31] MEDS: Magnesium Oxide TAB* 400 MG PO SCH (07:24)
[2019-07-31] MEDS: Metoprolol Succinate XL TAB* 50 MG PO SCH (07:25)
[2019-07-31] MEDS: Tamsulosin CAP* 0.4 MG PO SCH (07:25)
[2019-07-31] MEDS: Escitalopram * 20 MG TABLET PO SCH (07:25)
[2019-07-31] MEDS: BuPROPion XL* 150 MG TAB.XL PO SCH (07:25)
[2019-07-31] MEDS: Lisinopril TAB* 10 MG PO SCH (07:25)
[2019-07-31] MEDS: amLODIPine TAB* 5 MG PO SCH (07:25)
[2019-07-31] MEDS: CMCS:Simvastatin TAB(NF) 10 MG TAB PO SCH (07:26)
[2019-07-31] MEDS: Nicotine PATCH 21 MG/24 HR* PATCH TRANSDERM SCH (07:27)
[2019-07-31] MEDS: Buprenorp/Nalox 8-2 MG FILM SL FILM SCH ×2 (07:27→21:18)
[2019-07-31 08:24] LABS: Hematocrit 40 % (42-52); Hemoglobin 14.2 g/dL (14.0-18.0); Mean Corpuscular HGB Conc 35 g/dL (31-36); Mean Corpuscular Hemoglobin 31 pg (27-31); Mean Corpuscular Volume 89 fL (80-94); Red Blood Count 4.52 10^6 /uL (4.18-5.48); Red Cell Distribution Width 15 % (10-15); White Blood Count 5.3 10^3/uL (3.5-10.8)
[2019-07-31 09:07] LABS: ABS Basophils 0.1 10^3/ul (0-0.2); ABS Eosinophils 0.3 10^3/ul (0-0.6); ABS Lymphocytes 1.2 10^3/ul (1.0-4.8); ABS Monocytes 0.3 10^3/ul (0-0.8); ABS Neutrophils 3.3 10^3/ul (1.5-7.7); Eosinophil % 6.6 %; Lymphocyte % 23.4 %; Mean Platelet Volume 8.9 fL (7.4-10.4); Nucleated Red Blood Cells % 0.1; Platelet Count 99 10^3/uL (150-450)
--- NOTE | 2019-07-31 09:43 | PN ---
Subjective Date of Service: 07/31/19 Interval History: pt reports that he does not feel any W/D sx presently other than, "i feel like my insides are vibrating". Pt denies chest pain, SOB, dizziness, headaches, N/ V. Pt denies seizure activity or impending seizure activity. Pt reports that he thinks he will be ready to go home tomorrow when he can have family available to get him [place] for his new job. Family History: Findings - Pt adopted in 1962 does not know family hx Social History: Findings - Binge drinks alcohol. pack of cigarettes daily, 1 tin of chewing tobacco daily, denies IV drug use but does cocaine, marijuana, and pain pills. Past Medical History: Findings - HTN, Anxiety, Depression, Right shoulder surgery Objective Active Medications: Acetaminophen (Tylenol Tab*) 650 mg PO Q4H PRN PRN Reason: PAIN Last Admin: 07/28/19 21:05 Dose: 650 mg Amlodipine Besylate (Norvasc Tab*) 5 mg PO DAILY [facility] Last Admin: 07/31/19 07:25 Dose: 5 mg Buprenorphine/Naloxone (Suboxone 8 Mg-2 Mg Sl Film) 1 each SL FILM BID [facility] Last Admin: 07/31/19 07:27 Dose: 1 each Bupropion HCl (Wellbutrin Xl *) 150 mg PO DAILY [facility] Last Admin: 07/31/19 07:25 Dose: 150 mg Enoxaparin Sodium (Lovenox(*)) 40 mg SUBCUT Q24H [facility] Last Admin: 07/30/19 10:06 Dose: 40 mg Escitalopram Oxalate (Lexapro *) 20 mg PO DAILY [facility] Last Admin: 07/31/19 07:25 Dose: 20 mg Folic Acid (Folvite Tab*) 1 mg PO DAILY [facility] Last Admin: 07/31/19 07:24 Dose: 1 mg Haloperidol Lactate (Haldol Inj Iv/Im*) 5 mg IM ONCE PRN PRN Reason: AGITATION Last Admin: 07/29/19 21:24 Dose: 5 mg Lisinopril (Prinivil Tab*) 40 mg PO DAILY [facility] Last Admin: 07/31/19 07:25 Dose: 40 mg Lorazepam (Ativan Inj*) 0 - 3 mg IV PUSH .PER [facility] PROTOCOL [facility]; Protocol Last Admin: 07/31/19 07:29 Dose: 1.5 mg Lorazepam (Ativan Tab(*)) 2 mg PO Q6H [facility] Last Admin: 07/31/19 07:27 Dose: 2 mg Magnesium Oxide (Magox 400 Tab*) 800 mg PO DAILY [facility] Last Admin: 07/31/19 07:24 Dose: 800 mg Metoprolol Succinate (Toprol Xl Tab*) 50 mg PO DAILY [facility] Last Admin: 07/31/19 07:25 Dose: 50 mg Miscellaneous (Ativan Pyxis Lara) 1 ea N/A .PYXIS LARA PRN PRN Reason: PER PROTOCOL Multivitamins/Minerals (Theragran/Minerals Tab*) 1 tab PO DAILY [facility] Last Admin: 07/31/19 07:24 Dose: 1 tab Nicotine (Nicotine Patch 21 Mg/24 Hr*) 1 patch TRANSDERM DAILY@0800 [facility] Last Admin: 07/31/19 07:27 Dose: 1 patch Nicotine Polacrilex (Nicotine Gum*) 4 mg PO Q2H PRN PRN Reason: CRAVING Last Admin: 07/31/19 08:27 Dose: 4 mg Pharmacy Profile Note (Nicotine Patch Removal Note*) 1 note FOLLOW UP 2100 [facility] Last Admin: 07/30/19 19:48 Dose: Not Given Simvastatin (Zocor(Nf)) 5 mg PO DAILY [facility] Last Admin: 07/31/19 07:26 Dose: 5 mg Tamsulosin HCl (Flomax Cap*) 0.4 mg PO DAILY [facility] Last Admin: 07/31/19 07:25 Dose: 0.4 mg Thiamine HCl (Vitamin B-1 Tab*) 100 mg PO DAILY [facility] Last Admin: 07/31/19 07:24 Dose: 100 mg Vital Signs - 8 hr 07/31/19 07/31/19 07/31/19 01:46 03:05 03:07 Temperature 98.4 F Pulse Rate 84 Respiratory 18 22 22 Rate Blood Pressure 162/108 (mmHg) O2 Sat by Pulse 100 Oximetry 07/31/19 07/31/19 07/31/19 03:12 04:52 05:11 Temperature 98.4 F Pulse Rate 81 Respiratory 22 18 18 Rate Blood Pressure 145/105 (mmHg) O2 Sat by Pulse 100 Oximetry 07/31/19 07/31/19 07/31/19 06:40 07:27 07:29 Temperature Pulse Rate Respiratory 18 18 18 Rate Blood Pressure (mmHg) O2 Sat by Pulse Oximetry Oxygen Devices in Use Now: None Appearance: Pt sleeping comfortably. Eyes: No Scleral Icterus Ears/Nose/Mouth/Throat: NL Teeth, Lips, Gums, Clear Oropharnyx, Mucous Membranes Moist Neck: NL Appearance and Movements; NL JVP, Trachea Midline, No Thyroid Enlargement, Masses Respiratory: Symmetrical Chest Expansion and Respiratory Effort, Clear to Auscultation Cardiovascular: NL Sounds; No Murmurs; No JVD, RRR, No Edema Abdominal: NL Sounds; No Tenderness; No Distention, No Hepatosplenomegaly Lymphatic: No Cervical Adenopathy Extremities: No Edema, No Clubbing, Cyanosis Skin: No Rash or Ulcers, No Nodules or Sclerosis Neurological: Alert and Oriented x 3, NL Sensation, NL Gait, NL Muscle Strength and Tone - Palpable tremor noted to bilateral hands. Result Diagrams: 07/31/19 08:07 07/29/19 05:28 Additional Lab and Data: Lab Results 07/27/19 07/27/19 Range/Units 22:07 22:07 WBC 5.9 (3.5-10.8) 10^3/uL RBC 5.30 (4.18-5.48) 10^6 /uL Hgb 16.4 (14.0-18.0) g/dL Hct 48 (42-52) % MCV 90 (80-94) fL MCH 31 (27-31) pg MCHC 34 (31-36) g/dL RDW 15 (10-15) % Plt Count 164 (150-450) 10^3/uL MPV 8.0 (7.4-10.4) fL Neut % (Auto) 60.5 % Lymph % (Auto) 28.3 % [place] % (Auto) 8.1 % Eos % (Auto) 2.0 % Baso % (Auto) 1.1 % Absolute Neuts (auto) 3.6 (1.5-7.7) 10^3/ul Absolute Lymphs (auto) 1.7 (1.0-4.8) 10^3/ul Absolute Monos (auto) 0.5 (0-0.8) 10^3/ul Absolute Eos (auto) 0.1 (0-0.6) 10^3/ul Absolute Basos (auto) 0.1 (0-0.2) 10^3/ul Absolute Nucleated RBC 0.0 10^3/ul Nucleated RBC % 0.1 Sodium 135 (135-145) mmol/L Potassium 3.7 (3.5-5.0) mmol/L Chloride 98 L (101-111) mmol/L Carbon Dioxide 26 (22-32) mmol/L Anion Gap 11 (2-11) mmol/L BUN 8 (6-24) mg/dL Creatinine 0.70 (0.67-1.17) mg/dL Est GFR ( Amer) 141.2 (>60) Est GFR (Non-Af Amer) 116.7 (>60) BUN/Creatinine Ratio 11.4 (8-20) Glucose 113 H (70-100) mg/dL Calcium 9.2 (8.6-10.3) mg/dL Total Bilirubin 0.60 (0.2-1.0) mg/dL AST 50 H (13-39) U/L ALT 50 (7-52) U/L Alkaline Phosphatase 89 (34-104) U/L Total Protein 7.0 (6.4-8.9) g/dL Albumin 4.2 (3.2-5.2) g/dL Globulin 2.8 (2-4) g/dL Albumin/Globulin Ratio 1.5 (1-3) TSH Pending Salicylates < 2.50 (<30) mg/dL Acetaminophen < 15 mcg/mL Serum Alcohol 218 H (<10) mg/dL Microbiology and Other Data: Microbiology 07/28/19 01:10 Urine Culture - Final Urine No Growth (<1,000 CFU/mL) Assess/Plan/Problems-Billing Assessment: is a 58yo male with pmhx significant for etoh and substance abuse , HTN, hyperlipidemia, anxiety, depression, and seizures. He presented to the ED on 3/ intoxicated and with c/o SI. He was later removed from suicide prevention precautions. - Patient Problems (1) Alcohol withdrawal Current Visit: No Comment: -Pt has significant hx of alcohol abuse. Pt reports he can go a few months without alcohol and then his thoughts get out of control and he drinks to calm them. Presently patient is without any hallucinations, headache, N/V. Tremors are slightly visible. Last WAM score 10 -Seizure precautions in place, pt reports last seizure was in the late 90's R/T alcohol W/D. Denies impending seizures -WAM protocol with ativan prn. Scheduled Lorazepam changed to Librium Daily - multivitamin, folic acid and thiamin added to med regimen - Psychiatric consult 07/29, pt is cleared from psychiatric hold for SI - continue safety precautions as necessary (2) HTN (hypertension) Current Visit: No Status: Acute Code(s): I10 - ESSENTIAL (PRIMARY) HYPERTENSION SNOMED Code(s): 12275430 Comment: Blood pressure remains elevated - will continue Amlodipine, Lisinopril, Metoprolol (3) Substance abuse Current Visit: Yes Comment: admits to using etoh and cocaine over the last month, as well as prescribed marijuanna, hx substance abuse, states he is a member of the [facility] program. -Pt reports that he started drinking back in april and planned to quit as he had a new job starting soon. pt reports that his plan to quit at home did not work - continue suboxone (4) Suicidal ideation Current Visit: Yes Comment: Pt continues to deny any thoughts of self harm and has not made any attempts to harm self. Pt remians cooperative today. 1:1 remains outside room at all times. - Psychiatric evaluation has cleared pt from psychiatric hold. - continue to monitor (5) Anxiety Current Visit: Yes Comment: Presently anxiety is well controlled, pt does not appear to be in any distress. pt does report today that he is starting to feel anxious. Pt has not experienced any outbursts since thursday but does feel he needs to ambulate around department frequently - continue lexapro and wellbutrin (6) Hyperlipidemia Current Visit: Yes Comment: - resume statin therapy (7) DVT prophylaxis Current Visit: No Comment: - lovenox sq (8) Full code status Current Visit: No Status and Disposition: status: Stable disposition: 4N
[2019-07-31] MEDS ORDERED: chlordiazePOXIDE CAP* 25 MG PO SCH ×2 (10:00→11:00)
[2019-07-31] MEDS: Enoxaparin(*) 40 MG/0.4 ML SYR SUBCUT SCH (10:35)
--- NOTE | 2019-07-31 17:30 | CONSULT ---
Consult Consult: Psychiatric consultation follow-up. Mr. Leonard again today reports he has no suicidal intent or plan. He remains optimistic about returning to a job offered at in [place]. He reports his mood remains apprehensive, related to uncertainties about this job and other life changes with move to [place]. He is well-related. He denies any need for inpatient psychiatric care at this time. He should be referred to a substance abuse treatment program in the locale to which he discharges to assist in maintaining sobriety from alcohol. He will also need a prescriber of suboxone and his psychiatric medications, Lexapro and Wellburin.
[2019-07-31] MEDS: Nicotine Patch Removal NOTE FOLLOW UP SCH (21:19)
[2019-07-31] MEDS: chlordiazePOXIDE CAP* 25 MG PO SCH (21:19)
[2019-08-01] MEDS: Nicotine* 4MG (FRUIT FLAVOR) GUM PO PRN (09:38)
[2019-08-01] MEDS: Tamsulosin CAP* 0.4 MG PO SCH (09:51)
[2019-08-01] MEDS: CMCS:Simvastatin TAB(NF) 10 MG TAB PO SCH (09:51)
[2019-08-01] MEDS: Multivitamins/Minerals TAB PO SCH (09:51)
[2019-08-01] MEDS: Folic Acid TAB* 1 MG PO SCH (09:51)
[2019-08-01] MEDS: BuPROPion XL* 150 MG TAB.XL PO SCH (09:51)
[2019-08-01] MEDS: Escitalopram * 20 MG TABLET PO SCH (09:51)
[2019-08-01] MEDS: Metoprolol Succinate XL TAB* 50 MG PO SCH (09:51)
[2019-08-01] MEDS: Lisinopril TAB* 10 MG PO SCH (09:52)
[2019-08-01] MEDS: chlordiazePOXIDE CAP* 25 MG PO SCH (09:52)
[2019-08-01] MEDS: amLODIPine TAB* 5 MG PO SCH (09:52)
[2019-08-01] MEDS: Thiamine TAB* 100 MG TAB PO SCH (09:53)
[2019-08-01] MEDS: Magnesium Oxide TAB* 400 MG PO SCH (09:53)
[2019-08-01] MEDS: Nicotine PATCH 21 MG/24 HR* PATCH TRANSDERM SCH (09:54)
[2019-08-01] MEDS: Buprenorp/Nalox 8-2 MG FILM SL FILM SCH (09:54)
[2019-08-01] MEDS: Enoxaparin(*) 40 MG/0.4 ML SYR SUBCUT SCH (10:04)
[2019-08-01 10:39] VITALS: BP 153/100
--- NOTE | 2019-08-01 21:41 | DS ---
CC: Dr. Moreno * DISCHARGE SUMMARY: DATE OF ADMISSION: 07/28/19 DATE OF DISCHARGE: 08/01/19 PRIMARY CARE PROVIDER: Dr. Moreno. DISPOSITION AT DISCHARGE: To home. CONDITION AT DISCHARGE: Stable. DISCHARGE DIAGNOSES: 1. Alcohol withdrawal. 2. Depression without suicide ideation. SECONDARY DIAGNOSES: 1. Alcoholism. 2. Depression. 3. Hypertension. 4. Chronic pain, on Suboxone. LABORATORY DATA DURING THE HOSPITAL STAY: Included: On 07/31/19, white blood cell count of 5.3, hemoglobin of 14.2, hematocrit of 40, and platelets of 99. On 07/29/19, sodium of 137, potassium 3.7, chloride 101, carbon dioxide 29, BUN 11, creatinine 0.72. The patient's liver function tests were basically unremarkable at admission apart from mild elevation of AST at 50. CONSULTATIONS DURING THE HOSPITAL STAY: Included Dr. Juan Yoo from Psychiatry in regards of the patient's depression. MEDICATIONS AT DISCHARGE: Include: 1. Amlodipine 5 mg daily. 2. Wellbutrin XL 150 mg daily. 3. Lexapro 20 mg daily. 4. Prinivil 40 mg daily. 5. Metoprolol succinate 50 mg daily. 6. Simvastatin 5 mg daily. 7. Flomax 0.4 mg daily. 8. Suboxone 8 mg, the patient takes 2 times 8 mg which is a total of 16 mg in the morning. New medication: 1. Librium 25 mg tablet, take 2 tablets twice a day for another 2 days and then start tapering down to 1 tablet daily preferably at night and as needed for anxiety, do not exceed 2 tablets day. The patient was prescribed a total of 10 tablets. FOLLOWUP APPOINTMENTS: The patient has an appointment scheduled at [facility] on 08/03/19 at 10:30 a.m. The patient also was scheduled with [facility] for followup as needed to call them for an appointment and he is requested to call Dr. Moreno's office to schedule followup in 4 to 7 days after discharge. HOSPITALIZATION COURSE: Kevyn Leonard is a 58-year-old male with history of alcoholism, who was admitted to the hospital for withdrawal symptoms with an alcohol level of 218. He was also voicing worsening of his depression. Our psychiatrist, Dr. Yoo, saw the patient for consultation and deemed the patient is not in need of acute psychiatric admission. The patient went through withdrawal symptoms throughout his hospital stay and he was on multiple doses of lorazepam throughout his hospital stay. Eventually, he was placed on Librium which he tolerated well and he is going to go home on a tapering dose of Librium. Social Work was actively involved throughout the patient's hospital stay and sets the patient up with [facility] appointment at discharge. PHYSICAL EXAMINATION: At the time of discharge, blood pressure of 153/100, heart rate of 82 and regular, respiratory rate 19, oxygen saturation 99% on room air, temperature 97.7. General: The patient is a very pleasant 58-year- old male, who is in no acute distress. Alert, awake, and oriented x3. HEENT: Head: Atraumatic, normocephalic. Eyes: Pupils are equal, reactive to light and accommodation. Oropharynx is clear. Mucosa moist. Neck: Supple. No JVD. No bruits bilaterally. Cardiovascular: Regular rate and rhythm. No murmur. Respiratory: Clear to auscultation bilaterally. Abdomen is soft, nontender. Bowel sounds are present in all 4 quadrants. Extremities: There is no edema. Pulses are 2+ bilaterally. No clubbing or cyanosis. On neuro evaluation, the patient has very fine tremors in bilateral upper extremities; they are almost resolved. There are no other signs of withdrawal. Cranial nerves II through XII grossly intact. Motor strength is 5/5 bilaterally. Psychiatric Evaluation: Pleasant and cooperative with evaluation, oriented x3 with no evidence of anxiety or depression. The patient is recommended to follow with Dr. Moreno in 4 to 7 days as mentioned above. Please note that this is a short summary of the patient's hospital stay. Please refer to further medical records for details. CONDITION AT DISCHARGE: Stable. DISPOSITION AT DISCHARGE: To home. TIME SPENT: Approximately 40 minutes was spent on the patient's discharge. [id number]/[facility] #: [id number] [facility] HOSPITALFidel
== END 2019-08-01 13:30 | disposition home or self-care (01) | DRG 773 ==
LOC: ED 21:37 → MED 07-28 03:30 → ED 07-28 04:55 → MED 07-29 16:25
PROVIDERS: ADMIT Family Medicine; ATTEND Internal Medicine
DX: F10.239 Alcohol dependence with withdrawal, unspecified (principal); R45.851 Suicidal ideations; R65.10 Systemic inflammatory response syndrome (SIRS) of non-infectious origin without acute organ dysfunction; Y90.7 Blood alcohol level of 200-239 mg/100 ml; F32.9 Major depressive disorder, single episode, unspecified; I10 Essential (primary) hypertension; G89.29 Other chronic pain; F17.210 Nicotine dependence, cigarettes, uncomplicated; F17.220 Nicotine dependence, chewing tobacco, uncomplicated; F41.9 Anxiety disorder, unspecified; F14.10 Cocaine abuse, uncomplicated; E78.5 Hyperlipidemia, unspecified; F15.90 Other stimulant use, unspecified, uncomplicated; F11.90 Opioid use, unspecified, uncomplicated; Z79.899 Other long term (current) drug therapy
CPT/HCPCS: 36415; 80048; 80053; 80307; 80320; 80329; 81003; 83735; 84443; 85025; 85060; 87086; 96372; 96374; 99284; A9270-GY; G0480; J1630; J1650; J2060; J2560; J3411